=== PATIENT | female | born 1950 | race Caucasian/White ===

== ENCOUNTER 2016-07-25 11:10 | Emergency (ER) | payer OTHER ==
[~2016-07-25] VITALS: Ht 167.6 cm; Wt 64.0 kg
[2016-07-25 11:17] VITALS: Ht 167.6 cm; Wt 64.0 kg
[2016-07-25] MEDS ORDERED: DTRSR/2 PO (11:41)
[2016-07-25] MEDS ORDERED: SODIUM CHLORIDE 0.9% 1000ML 1,000 ML IV STA (11:49)
--- NOTE | 2016-07-25 12:13 | EMERGENCY ROOM VISIT NOTE ---
History Report prepared by Nehal: Bud Lund Under the Supervision of: Dr. Malvin Austin M.D. First contact with patient: 11:42 Chief Complaint: BACK PAIN Stated Complaint: LOWER BACK PAIN, TENDER,BOWEL CHANGE History of Present Illness The patient is a 65 year old female who presents to the Emergency Room with complaints of worsening lower back pain that began 1 week ago. She rates her pain a 7/10 a severity. She states that she has been having bowel problems with softer smaller stools, that she believes to be related. She denies any recent falls or injury. She denies any urinary symptoms, loss of bowel control, or abdominal pain. She has not been doing anything out of the ordinary. She did not take any pain medications. Source of History: patient Onset: 1 week ago Position: back (lower) Symptom Intensity: 7/10 Quality: ache Timing: worsening Associated Symptoms: No abdominal pain, No urinary symptoms Note: She denies any loss of bowel control. Review of Systems See HPI for pertinent positives & negatives. A total of 10 systems reviewed and were otherwise negative. Past Medical & Surgical Medical Problems: (1) Bleeding ulcer (2) Lyme disease Family History Cancer Diabetes mellitus Heart disease Social History Smoking Status: Current Every Day Smoker Alcohol Use: none Drug Use: none Marital Status: in relationship Housing Status: lives with significant other Occupation Status: retired Current/Historical Medications Scheduled Tolterodine Tartrate (Detrol [place]), 1 CAP PO HS Allergies Coded Allergies: No Known Allergies (Unverified , 07/25/16) Physical Exam Vital Signs Date Time Temp Pulse Resp B/P Pulse Ox O2 Delivery O2 Flow Rate FiO2 07/25/16 13:32 36.5 82 18 117/71 96 07/25/16 12:30 73 07/25/16 11:17 36.5 97 18 124/72 96 Room Air Physical Exam GENERAL: Patient is a healthy-appearing well-nourished HEAD: Normocephalic atraumatic EYES: Ocular movements intact pupils equal and react to light OROPHARYNX mucous membranes are moist no exudates present no erythema or edema present NECK: Supple no nuchal rigidity CHEST: Good equal expansion LUNGS: Clear and equal to auscultation CARDIAC: Normal S1 and S2 ABDOMEN: Soft nontender no guarding BACK: No CVA tenderness. Able to walk on heels and toes. No signs of saddle anesthesia. EXTREMITIES: No pain upon palpation normal muscle strength in all groups no clubbing cyanosis or edema NEURO: Patient is following commands is answering questions appropriately. Alert and oriented x3 Cranial Nerves 2-12 grossly intact. No loss of bowel or bladder control. Medical Decision & Procedures ER Provider Diagnostic Interpretation: Radiology results as stated below per my review and radiologist interpretation: CT LUMBAR SPINE WITHOUT CT DOSE: 265.99 mGy.cm CLINICAL HISTORY: Severe left-sided back pain TECHNIQUE: Helical images were acquired in transverse plane. Reformatted sagittal and coronal images were reviewed. CONTRAST: No contrast was administered COMPARISON STUDY: None. FINDINGS: L1-2 level: There is no evidence of significant disc bulge or focal herniation. There is no evidence of spinal or foraminal stenosis. L2-3 level: There is a mild circumferential disc bulge. There is minor spinal stenosis. There is no significant foraminal narrowing L3-4 level: There is a minimal retrolisthesis of L3 on L4. There is a circumferential disc bulge present. There is mild to moderate spinal stenosis. There is no significant foraminal narrowing L4-5 level: There is a grade 1 spinal listhesis of L4 and L5. There is a circumferential disc bulge present. There is mild to moderate spinal stenosis. There is no stomach and foraminal narrowing L5-S1 level: There is no evidence of significant disc bulge or focal herniation. There is no evidence of spinal or foraminal stenosis. No fractures or traumatic subluxations are visualized. No destructive lesions are evident. There is facet joint arthropathy most severe at the L4-5 on the left IMPRESSION: 1. No acute fractures or traumatic subluxations 2. Multilevel degenerative changes with multilevel disc bulges and multilevel spinal stenosis which is mild to moderate the L3-4 and L4-5 levels. Electronically signed by: Juan Vasquez M.D. 07/25/2016 12:30 PM Dictated Date/Time: 07/25/2016 12:[address] SCAN OF THE ABDOMEN AND PELVIS WITHOUT CONTRAST CLINICAL HISTORY: Diffuse abdominal pain COMPARISON STUDY: No previous studies for comparison. TECHNIQUE: CT scan of the abdomen and pelvis was performed from the lung bases to the proximal femurs. Images are reviewed in the axial, sagittal, and coronal planes. IV contrast was not administered for this examination. CT DOSE: FINDINGS: Lower chest: There is pulmonary emphysema. There are mild dependent atelectatic changes. Liver: The unenhanced liver is normal in size, contour, and attenuation. There is no intrahepatic biliary ductal dilatation. Gallbladder: Unremarkable. Spleen: Normal in size and attenuation. Pancreas: Unremarkable. Adrenal glands: Unremarkable. Kidneys: No renal, ureteral, or bladder calculi are visualized. Bowel: No no transition zones indicate bowel obstruction. The appendix appears normal. There is no acute diverticulitis. There is mild fecal retention. Peritoneum: There is no intraperitoneal free air or abdominal ascites. Vasculature: The abdominal aorta is normal in course and caliber. Adenopathy: None. Pelvic viscera: The bladder, and pelvic viscera are unremarkable. Skeletal structures: No destructive osseous lesions are seen. IMPRESSION: 1. No evidence of bowel obstruction. No evidence of free air 2. Normal appendix. No evidence of acute diverticulitis 3. No renal, ureteral, or bladder calculi identified. Electronically signed by: Juan Vasquez M.D. 07/25/2016 12:27 PM Dictated Date/Time: 07/25/2016 12:24 PM Laboratory Results 07/25/16 12:10 Red Blood Count 5.18, Mean Corpuscular Volume 93.4, Mean Corpuscular Hemoglobin 31.1, Mean Corpuscular Hemoglobin Concent 33.3, Mean Platelet Volume 9.3, Neutrophils (%) (Auto) 69.0, Lymphocytes (%) (Auto) 24.7, Monocytes (%) (Auto) 5.3, Eosinophils (%) (Auto) 0.4, Basophils (%) (Auto) 0.5, Neutrophils # (Auto) 5.22, Lymphocytes # (Auto) 1.87, Monocytes # (Auto) 0.40, Eosinophils # (Auto) 0.03, Basophils # (Auto) 0.04 07/25/16 12:10 Test 07/25/16 11:20 07/25/16 12:10 Urine Color YELLOW Urine Appearance CLEAR (CLEAR) Urine pH 6.0 (4.5-7.5) Urine Specific [place] 1.005 (1.000-1.030) Urine Protein NEG (NEG) Urine Glucose (UA) NEG (NEG) Urine Ketones NEG (NEG) Urine Occult Blood 1+ (NEG) Urine Nitrite NEG (NEG) Urine Bilirubin NEG (NEG) Urine Urobilinogen NEG (NEG) Urine Leukocyte Esterase TRACE (NEG) Urine WBC (Auto) 1-5 /hpf (0-5) Urine RBC (Auto) 5-10 /hpf (0-4) Urine Hyaline Casts (Auto) 0 /lpf (0-5) Urine Epithelial Cells (Auto) 10-20 /lpf (0-5) Urine Bacteria (Auto) NEG (NEG) White Blood Count 7.57 K/uL (4.8-10.8) Red Blood Count 5.18 M/uL (4.2-5.4) Hemoglobin 16.1 g/dL (12.0-16.0) Hematocrit 48.4 % (37-47) Mean Corpuscular Volume 93.4 fL (80-100) Mean Corpuscular Hemoglobin 31.1 pg (25-34) Mean Corpuscular Hemoglobin Concent 33.3 g/dl (32-36) Platelet Count 256 K/uL (130-400) Mean Platelet Volume 9.3 fL (7.4-10.4) Neutrophils (%) (Auto) 69.0 % Lymphocytes (%) (Auto) 24.7 % Monocytes (%) (Auto) 5.3 % Eosinophils (%) (Auto) 0.4 % Basophils (%) (Auto) 0.5 % Neutrophils # (Auto) 5.22 K/uL (1.4-6.5) Lymphocytes # (Auto) 1.87 K/uL (1.2-3.4) Monocytes # (Auto) 0.40 K/uL (0.11-0.59) Eosinophils # (Auto) 0.03 K/uL (0-0.5) Basophils # (Auto) 0.04 K/uL (0-0.2) RDW Standard Deviation 46.5 fL (36.4-46.3) RDW Coefficient of Variation 13.5 % (11.5-14.5) Immature Granulocyte % (Auto) 0.1 % Immature Granulocyte # (Auto) 0.01 K/uL (0.00-0.02) Anion Gap 7.0 mmol/L (3-11) Est Creatinine Clear Calc Drug Dose 59.6 ml/min Estimated GFR () 79.9 Estimated GFR (Non- 68.9 BUN/Creatinine Ratio 25.7 (10-20) Calcium Level 9.5 mg/dl (8.5-10.1) Total Bilirubin 0.5 mg/dl (0.2-1) Direct Bilirubin 0.1 mg/dl (0-0.2) Aspartate Amino Transf (AST/SGOT) 15 U/L (15-37) Alanine Aminotransferase (ALT/SGPT) 25 U/L (12-78) Alkaline Phosphatase 88 U/L (45-117) Total Protein 7.4 gm/dl (6.4-8.2) Albumin 4.0 gm/dl (3.4-5.0) Lipase 107 U/L (73-393) Labs reviewed by ED physician. Medications Administered Medications (Trade) Dose Ordered Sig/Bren Route Start Time Stop Time Status Last Admin Dose Admin Sodium Chloride (Nss 1000ml) 1,000 ml @ 999 mls/hr Q1H1M STAT IV 07/25/16 11:49 07/25/16 12:49 DC 07/25/16 12:23 999 MLS/HR ED Course 1142: Past medical records reviewed. The patient was evaluated in room C9. A complete history and physical examination was performed. 1149: Ordered Sodium Chloride 1000 ml @ 999 mls/hr IV 1300: Upon reexamination the patient is resting. I discussed results and treatment plan with the patient. She verbalizes agreement and understanding. The patient is ready for discharge. Medical Decision Differential diagnosis: Etiologies such as fracture, dislocation, neurovascular compromise, compartment syndrome, soft tissue injury, as well as others were entertained. This is a 65-year-old female whose complaining of tenderness to the left lower back along with change in bowel habits. The patient reports she's been having loose stool however this has not lost bowel control. The patient believes that the 2 events are related. I will note that the patient has no evidence of saddle anesthesia is able to walk on her tiptoes and her heels. The patient is here to make sure that there is nothing wrong. Based on the patient's complaint an IV was established, the patient has a normal CBC normal renal profile normal liver profile normal lipase. In addition the patient was given normal saline bolus. I do believe based on the patient's CAT scan that she is able to go home. The patient refused pain medication however I discussed follow-up with gastroenterology. The patient does see [facility]. She is also received injections into her back from [facility] so I also recommended follow-up with [facility]. Patient was in agreement with the treatment plan. Impression Primary Impression: Back pain Scribe Attestation The scribe's documentation has been prepared under my direction and personally reviewed by me in its entirety. I confirm that the note above accurately reflects all work, treatment, procedures, and medical decision making performed by me. Departure Information Dispostion Home / Self-Care Referrals Micaela Hand M.D. (PCP) Forms HOME CARE DOCUMENTATION FORM, IMPORTANT VISIT INFORMATION, School Instructions, Work Instructions Patient Instructions Back Pain - [facility], ED Back Care Tips, ED Exercises Lumbar Muscles, Low Back Pain Self Care, My [facility] Additional Instructions Follow up with [facility] for change in Bowel habits Follow up with [facility] for continued back pain Take 600 mg Ibuprofen every 6 hours You have been examined and treated today on an emergency basis only. This is not a substitute for, or an effort to provide, complete comprehensive medical care. It is impossible to recognize and treat all injuries or illnesses in a single emergency department visit. It is therefore important that you follow up closely with Dr hand. Call as soon as possible for an appointment. Thank you for your time and consideration. I look forward to speaking with you again soon. Please don't hesitate to call us if you have any questions. Problem Qualifiers Primary Impression: Back pain Back pain location: low back pain Chronicity: acute Back pain laterality: left Sciatica presence: without sciatica Qualified Codes: M54.5 - Low back pain
[2016-07-25 12:21] LABS: URINE APPEARANCE CLEAR (CLEAR); URINE BILIRUBIN NEG (NEG); URINE COLOR YELLOW; URINE NITRITE NEG (NEG); URINE SPECIFIC GRAVITY 1.005 (1.000-1.030); UROBILINOGEN NEG (NEG)
[2016-07-25 12:23] LABS: BASO % 0.5 %; BASO ABS # 0.04 K/uL (0-0.2); COMPLETE YES; EOS % 0.4 %; HEMATOCRIT 48.4 % (37-47); IG% 0.1 %; LYMPH % 24.7 %; LYMPH ABS # 1.87 K/uL (1.2-3.4); MEAN CELL VOLUME 93.4 fL (80-100); MEAN CORPUSCULAR HEMOGLOBIN 31.1 pg (25-34); MEAN CORPUSCULAR HGB CONC 33.3 g/dl (32-36); MEAN PLATELET VOLUME 9.3 fL (7.4-10.4); MONO % 5.3 %; PLATELET COUNT 256 K/uL (130-400); RED BLOOD COUNT 5.18 M/uL (4.2-5.4); WHITE BLOOD COUNT 7.57 K/uL (4.8-10.8)
[2016-07-25 12:23] LABS: MANUAL MICROSCOPIC REQUIRED? NO; REVIEW REQ? NO
--- NOTE | 2016-07-25 12:28 | DIAGNOSTIC IMAGING REPORT ---
CT SCAN OF THE ABDOMEN AND PELVIS WITHOUT CONTRAST CLINICAL HISTORY: Diffuse abdominal pain COMPARISON STUDY: No previous studies for comparison. TECHNIQUE: CT scan of the abdomen and pelvis was performed from the lung bases to the proximal femurs. Images are reviewed in the axial, sagittal, and coronal planes. IV contrast was not administered for this examination. CT DOSE: FINDINGS: Lower chest: There is pulmonary emphysema. There are mild dependent atelectatic changes. Liver: The unenhanced liver is normal in size, contour, and attenuation. There is no intrahepatic biliary ductal dilatation. Gallbladder: Unremarkable. Spleen: Normal in size and attenuation. Pancreas: Unremarkable. Adrenal glands: Unremarkable. Kidneys: No renal, ureteral, or bladder calculi are visualized. Bowel: No no transition zones indicate bowel obstruction. The appendix appears normal. There is no acute diverticulitis. There is mild fecal retention. Peritoneum: There is no intraperitoneal free air or abdominal ascites. Vasculature: The abdominal aorta is normal in course and caliber. Adenopathy: None. Pelvic viscera: The bladder, and pelvic viscera are unremarkable. Skeletal structures: No destructive osseous lesions are seen. IMPRESSION: 1. No evidence of bowel obstruction. No evidence of free air 2. Normal appendix. No evidence of acute diverticulitis 3. No renal, ureteral, or bladder calculi identified. Electronically signed by: Juan Vasquez M.D. 07/25/2016 12:27 PM Dictated Date/Time: 07/25/2016 12:24 PM
--- NOTE | 2016-07-25 12:32 | DIAGNOSTIC IMAGING REPORT ---
CT LUMBAR SPINE WITHOUT CT DOSE: 265.99 mGy.cm CLINICAL HISTORY: Severe left-sided back pain TECHNIQUE: Helical images were acquired in transverse plane. Reformatted sagittal and coronal images were reviewed. CONTRAST: No contrast was administered COMPARISON STUDY: None. FINDINGS: L1-2 level: There is no evidence of significant disc bulge or focal herniation. There is no evidence of spinal or foraminal stenosis. L2-3 level: There is a mild circumferential disc bulge. There is minor spinal stenosis. There is no significant foraminal narrowing L3-4 level: There is a minimal retrolisthesis of L3 on L4. There is a circumferential disc bulge present. There is mild to moderate spinal stenosis. There is no significant foraminal narrowing L4-5 level: There is a grade 1 spinal listhesis of L4 and L5. There is a circumferential disc bulge present. There is mild to moderate spinal stenosis. There is no stomach and foraminal narrowing L5-S1 level: There is no evidence of significant disc bulge or focal herniation. There is no evidence of spinal or foraminal stenosis. No fractures or traumatic subluxations are visualized. No destructive lesions are evident. There is facet joint arthropathy most severe at the L4-5 on the left IMPRESSION: 1. No acute fractures or traumatic subluxations 2. Multilevel degenerative changes with multilevel disc bulges and multilevel spinal stenosis which is mild to moderate the L3-4 and L4-5 levels. Electronically signed by: Juan Vasquez M.D. 07/25/2016 12:30 PM Dictated Date/Time: 07/25/2016 12:28 PM
[2016-07-25 12:41] LABS: BUN/CREATININE RATIO 25.7 (10-20); CALCIUM 9.5 mg/dl (8.5-10.1); CREATININE 0.88 mg/dl (0.60-1.20); POTASSIUM 4.1 mmol/L (3.5-5.1)
[2016-07-25 13:32] VITALS: BP 117/71; PULSE 82; TEMP 36.5; O2SAT 96
== END 2016-07-25 13:20 | disposition home or self-care (01) ==
LOC: C.EDB 11:11 → C.EDC 13:20
DX: M54.5 Low back pain (principal); M54.9 Dorsalgia, unspecified; Z83.3 Family history of diabetes mellitus; Z82.49 Family history of ischemic heart disease and other diseases of the circulatory system; F17.200 Nicotine dependence, unspecified, uncomplicated

== ENCOUNTER 2019-02-01 06:04 | Inpatient (IN) ==
--- NOTE | 2019-01-25 13:10 | Anesthesiology Consultation ---
Date of Service January 25, 2019 Assessment & Plan (1) Encounter for pre-operative examination: Chart Review Chart Review: Acceptable Risk for Surgery Consults Requested none History Surgery Operation Date: 02/01/19 13:55 Proposed Procedures p Right Shoulder Arthroscopy with Rotator Cuff Repair, Possible Biceps Debridement, Subacromial Decompression, Distal Clavicle Excision - Ken Boo MD Height/Weight Height: 5 ft 6 in Weight: 54.885 kg Allergies Allergy/AdvReac Type Severity Reaction Status Date / Time ibuprofen [From Motrin] AdvReac Mild CAUSED GI Verified 01/18/19 10:58 BLEED PAIN MED Allergy Mild HALLUCINATION Uncoded 01/18/19 10:56 AND NAUSEA - PT DOES NOT WORK Medications Home Medications Medication Instructions Recorded Confirmed Last Taken tolterodine 4 mg PO HS 01/18/19 01/18/19 Unknown Past Medical History Medical History History of GI bleed CAUSED BY MOTRIN Hx of cardiac murmur AGE 5 AND NO PROBLEMS Past Surgical History Surgical History History of arthroplasty of left shoulder ROTATOR CUFF REPAIR Hx of LASIK Hx of colonoscopy Hx of esophagogastroduodenoscopy Hx of foot surgery LEFT FOOT NEUROMA REMOVED Hx of laparoscopy FOR ECTOPIC Hx of tonsillectomy Social History Smoking Status: Current every day smoker tobacco type: cigarettes Smoking cigarettes per day: 1PPD Do You Dip or Chew Tobacco: No Hx Alcohol Use: No Hx Substance Use: No substance use type: does not use Testing Laboratory Results [facility] labs (01/13/19): WBC 11.9 Hgb 16.2 Plts 357
--- NOTE | 2019-01-31 22:47 | History and Physical Report ---
DATE OF ADMISSION: 02/01/2019 CHIEF COMPLAINT: Right shoulder injury. HISTORY OF PRESENT ILLNESS: This is a 68-year-old female patient of Dr. Boo'kiana complaining of a right shoulder injury approximately 3 months ago. She was throwing a garbage bag into her garbage can and she sustained an injury. She failed conservative treatment and an MRI confirmed a rotator cuff tear, impingement, AC arthritis, and biceps tendinopathy. The patient wished to proceed with a right shoulder arthroscopic rotator cuff repair, subacromial decompression, distal clavicle excision, and possible biceps debridement. PAST MEDICAL HISTORY: Heart murmur, peripheral neuropathy, osteoarthritis, spine problems. SOCIAL HISTORY: A pack per year smoker x40 years. Nondrinker. PAST SURGICAL HISTORY: Tubal ligation, ectopic , Lasik eye surgery, tonsillectomy, left foot neuroma, and left rotator cuff. FAMILY HISTORY: Noncontributory. REVIEW OF SYSTEMS: Chronic right shoulder pain and weakness. Otherwise, denies any shortness of breath, chest pain, nausea, vomiting, or any other joint complaints. MEDICATIONS: Include, 1. Diclofenac 1% topical gel 2 times daily to affected area. 2. Aleve 220 mg as needed. 3. Tolterodine 4 mg capsules 1 tablet daily. 4. Prednisone 10 mg as directed. ALLERGIES: NARCOTICS WHICH CAUSE NAUSEA, VOMITING, AND HALLUCINATIONS. PHYSICAL EXAMINATION: GENERAL: Well-developed, well-nourished, 68-year-old female in no acute distress. She is alert and oriented x3 and pleasant. HEENT: Normocephalic, atraumatic. Extraocular motions are intact. Pupils are equal and reactive to light. HEART: Regular rate and rhythm, no murmurs. LUNGS: Clear with decreased sounds throughout. ABDOMEN: Soft and nontender. Bowel sounds present. EXTREMITIES: Right shoulder reveals active range of motion to 140, passively to 180 with pain and crepitation. External rotation is 3/5 strength. Internal rotation is 4/5 strength. NEUROLOGIC: Neurovascularly, she is intact in her right upper extremity. DIAGNOSES: Right shoulder rotator cuff tear, impingement, acromioclavicular arthritis, and biceps tendinopathy. She also has a history of heart murmur, peripheral neuropathy, osteoarthritis, spine problems. PLAN: The patient was advised of her diagnoses. Indications, risks, benefits, postop course have all been reviewed. The patient wished to proceed with a right shoulder arthroscopic rotator cuff repair, subacromial decompression, distal clavicle excision, and possible biceps debridement. Necessary consent forms, preoperative testing, and clearances will be obtained.
[~2019-02-01 06:04] MED LIST: CEFAZOLIN 1000MG 1,000 MG/7.5 ML SYR IV SCH; LR 15ML/HR IV SCH
[2019-02-01] MEDS ORDERED: ROPIVACAINE 0.5% 5 MG/ML 30 ML VIAL ONE (06:36)
[2019-02-01] MEDS ORDERED: EpINEphrine HCL INJ 1 MG/ML 1ML SYRINGE ONE (07:15)
--- NOTE | 2019-02-01 07:21 | History & Physical Bridge Note ---
Date of Service February 01, 2019 History & Physical Bridge Note I have examined the patient, reviewed the History & Physical and in the interval since the performance of the History & Physical I have noted the following changes of clinical significance: no changes noted
[2019-02-01] MEDS ORDERED: LIDOCAINE HCL 2% 2 ML VIAL/AMP(20MG/ML) INFIL ONE (07:55)
[2019-02-01] MEDS ORDERED: PROPOFOL IV EMULSION 10 MG/ML 20 ML VIAL IV ONE ×2 (07:55→11:15)
[2019-02-01] MEDS ORDERED: DEXAMETHASONE SOD INJ 4 MG/ML VIAL ONE (07:55)
[2019-02-01] MEDS ORDERED: ROCURONIUM BROMIDE 10 MG/ML 5 ML VIAL ONE (07:56)
[2019-02-01] MEDS ORDERED: fentaNYL citrate 100 MCG/2 ML VIAL ONE (08:04)
[2019-02-01] MEDS ORDERED: MIDAZOLAM HCL 1 MG/ML 2ML VIAL ONE (08:05)
[2019-02-01] MEDS ORDERED: HYDROmorphone INJ 1 MG/ML SYRINGE IV PRN (09:37)
[2019-02-01] MEDS ORDERED: ONDANSETRON INJ 2 MG/ML 2 ML VIAL IV PRN ×2 (09:37→13:30)
[2019-02-01] MEDS ORDERED: ATROPINE SULFATE 0.1 MG/ML 10ML SYR IV PRN (09:37)
[2019-02-01] MEDS ORDERED: PROMETHAZINE HCL 6.25 MG in SODIUM CHLORIDE 0.9% 50 ML IV PRN (09:37)
[2019-02-01] MEDS ORDERED: ePHEDrine sulfate 50 MG/ML AMP ONE ×2 (10:30→11:25)
[2019-02-01] MEDS ORDERED: LARYING-O-JET KIT (LTA) ONE (10:50)
[2019-02-01] MEDS ORDERED: PHENYLEPHRINE 100MCG/ML 5ML SYR ONE (11:06)
[2019-02-01] MEDS ORDERED: GLYCOPYRROLATE 0.2 MG/ML VIAL ONE (11:33)
[2019-02-01] MEDS ORDERED: NEOSTIGMINE METHYLSULFATE 5 MG/5 ML SYR ONE (11:34)
--- NOTE | 2019-02-01 11:58 | Post Operative Brief Note ---
Immediate Post Op Note v1 Date of Surgery February 01, 2019 Pre & Post Diagnosis Operation Date: 02/01/19 09:20 Pre-Op Diagnosis: Right shoulder rotator cuff tear, impingement, acromioclavicular arthritis, and biceps tendinopathy. Post-Op Diagnosis: Right shoulder rotator cuff tear, impingement, acromioclavicular arthritis, and biceps rupture I identified the patient and participated in the time-out.: Yes Procedure Operation Date: 02/01/19 09:20 Actual Procedures p Right Shoulder Arthroscopy with Rotator Cuff Repair, Subacromial Decompression, Distal Clavicle Excision(Right) - Ken Boo MD Surgeon Ken Boo MD Photographic Process Attendant Jordon NINA Estimated Blood Loss 15 Findings Consistent with Post-Op Diagnosis Anesthesia Type General Regional Complications none Disposition Accompanied Patient To Recovery: No Disposition: Recovery Room Overlapping Procedure I was present for: the critical portions of procedure. Back up surgeon: was not required during procedure.
--- NOTE | 2019-02-01 12:49 | Anesthesiology Progress Note ---
Date of Service February 01, 2019 Anesthesia Post Procedure Vital Signs Vital Signs: Temp Pulse Pulse Resp BP Pulse Ox 02/01/19 12:40 36.6 C 71 18 105/57 L 92 02/01/19 12:30 36.7 C 75 18 100/55 L 92 02/01/19 12:20 36.7 C 75 18 106/59 L 92 02/01/19 12:10 36.7 C 88 18 117/66 96 02/01/19 11:59 36.7 C 99 H 22 120/71 92 02/01/19 07:26 36.8 C 81 20 123/83 98 Pain Intensity Right Shoulder: Pain Intensity: 9 Transfer of Care Handoff Completed per policy Notes Mental Status: alert / awake / arousable Patient Amnestic to Procedure: Yes Nausea / Vomiting: adequately controlled Pain: adequately controlled Airway Patency, RR, SpO2: stable & adequate BP & HR: stable & adequate Hydration State: stable & adequate Anesthetic Complications: no major complications apparent
[2019-02-01] MEDS ORDERED: NALOXONE HCL 0.4 MG/1 ML VIAL/CARP IV PRN (13:30)
[2019-02-01] MEDS ORDERED: MAGNESIUM HYDROXIDE SUSP 30 ML UDC PO PRN (13:30)
[2019-02-01] MEDS ORDERED: BISACODYL 10 MG SUPP PR PRN (13:30)
[2019-02-01] MEDS: SODIUM CHLORIDE 0.9% 1000ML 1,000 ML IV SCH ×2 (13:52→23:25)
[2019-02-01] MEDS: ACETAMINOPHEN 500 MG TAB PO SCH ×2 (13:54→21:33)
--- NOTE | 2019-02-01 17:35 | Operative Report ---
Post Operative Report Pre & Post Diagnosis Operation Date: 02/01/19 09:20 Pre-Op Diagnosis: Right shoulder rotator cuff tear, impingement, acromioclavicular arthritis, and biceps tendinopathy, possible biceps rupture. Post-Op Diagnosis: Right shoulder rotator cuff tear, impingement, acromioclavicular arthritis, and biceps rupture with retraction I identified the patient and participated in the time-out.: Yes Procedure Operation Date: 02/01/19 09:20 Actual Procedures p Right Shoulder Arthroscopy with Rotator Cuff Repair, Subacromial Decompression, Distal Clavicle Excision(Right) - Ken Boo MD Surgeon Ken Boo MD Environmental Engineering Aide Jordon NINA Estimated Blood Loss 15 Findings Consistent with Post-Op Diagnosis Specimens None Drains None Anesthesia Type General Regional Disposition Accompanied Patient To Recovery: No Disposition: Recovery Room Indications 68-year-old female with right shoulder pain related to chronic rotator cuff tear right shoulder. Patient has x-rays demonstrating a type II acromion with an anterior inferior acromial spur hypertrophic AC joint arthritis and MRI demonstrates full-thickness anterior superior rotator cuff tear and biceps tendinopathy probable biceps rupture. Description of Procedure The patient was to the operating room anesthetized under regional block and general anesthesia. The patient was positioned on the operating table in the 70 beachchair position. All of the other extremities were well-padded. The right upper extremity was prepped and draped in the usual sterile fashion. Examination demonstrated good passive range of motion no instability subacromial crepitation prominent AC joint. Arthroscopy of the shoulder was performed via anterior and posterior arthroscopy portals. Posterior portal was placed in the soft spot and the anterior portal was placed in the rotator interval. Subsequent portals included lateral subacromial and superior lateral incision for suture anchor placement. The following findings were noted ruptured biceps tendon with retraction some synovitis of the joint intact articular surfaces upper subscapularis tear and complete tear supraspinatus tendon with intact infraspinatus tendon. Subacromial bursitis fraying of the CA ligament type II acromion with impingement inferior AC joint spurs causing impingement advanced osteoarthritis end of clavicle with irregular surface and grade 4 change. Attention was first taken to debriding the undersurface of the rotator cuff repair in the footprint of his upper subscapularis and supraspinatus for repair. The bone was debrided but not decorticated getting up bleeding bony surface for insertion of the rotator cuff. The bursa and periosteum on the undersurface of the acromion was ablated with the radiofrequency ablator and the CA ligament was released off the anterior acromion. The CA ligament was debrided back. A 5.5 bur was used to plane down the acromion to type I flat shape. A radio frequency ablator was used to ablate the undersurface of 1 cm of the distal clavicle ablating the inferior capsule. This exposed the spurs on the undersurface of the clavicle. A 5.5 bur was used to resect 1 cm distal clavicle using the shane through both the lateral and anterior portal. The superior and posterior capsule was preserved for stability. Triple loaded anchors were placed in the upper lesser tuberosity footprint in the greater tuberosity footprint of the supraspinatus and sutures were passed with a arthroscopic suture passer and tied down with A Brendan sliding locking knot with 3 reversed half hitches and alternating posts. Complete repair was performed without tension with the arm to side. There is no impingement The portal sites were closed with interrupted nylon sutures. Sterile dressings were applied and a sling immobilizer. The patient tolerated the procedure well. My physician medical laboratory assistant Jordon Harmon, assisted in arm positioning, instrument management, suture management when indicated, incision closure, sling application, and will participate in the postoperative care of the patient. I attest to the content of the Intraoperative Record and any orders documented therein. Any exceptions are noted below.
[2019-02-01] MEDS: CEFAZOLIN 1000MG 1,000 MG/7.5 ML SYR IV SCH (18:26)
[2019-02-01] MEDS: TOLTERODINE TARTRATE LA 4 MG CAPCR PO SCH (20:07)
[2019-02-01] MEDS: SENNA 8.6 MG TAB PO SCH (20:07)
[2019-02-01] MEDS: DOCUSATE SODIUM 100 MG CAP PO SCH (20:07)
[2019-02-02] MEDS: CEFAZOLIN 1000MG 1,000 MG/7.5 ML SYR IV SCH (02:02)
[2019-02-02] MEDS: HYDROCODONE/ACETAMOPHEN 5/325MG TAB PO PRN ×4 (02:02→20:51)
[2019-02-02] MEDS: ACETAMINOPHEN 500 MG TAB PO SCH (02:56)
[2019-02-02] MEDS: HYDROmorphone INJ 0.5 MG/0.5 ML SYR IV PRN ×3 (03:29→16:26)
[2019-02-02 06:52] LABS: Hematocrit (blood only) 38.8 % (37-47); Hemoglobin 12.8 g/dL (12.0-16.0); Mean Corpuscular Hemoglobin 31.8 pg (25-34); Mean Corpuscular Volume 96.3 fL (80-100); Mean Platelet Volume 9.2 fL (7.4-10.4); Platelet Count 213 K/uL (130-400); RDW Coefficient of Variation 14.7 % (11.5-14.5); RDW Standard Deviation 52.1 fL (36.4-46.3); Red Blood Count 4.03 M/uL (4.2-5.4); White Blood Count 9.79 K/uL (4.8-10.8)
[2019-02-02 07:20] LABS: BUN Creatinine Ratio 23.1 (10-20); Calcium 8.8 mg/dl (8.5-10.1); Creatinine Clr Calc Pharmacy 66.5 ml/min; Est GFR (African American) 101.4; Est GFR (Non-African American) 87.5; Potassium 3.7 mmol/L (3.5-5.1)
[2019-02-02] MEDS ORDERED: ACETAMINOPHEN 500 MG TAB PO PRN (07:58)
--- NOTE | 2019-02-02 08:12 | Anesthesiology Progress Note ---
Date of Service February 02, 2019 Anesthesia Post Procedure Vital Signs Vital Signs: Temp Pulse Pulse Resp BP Pulse Ox 02/02/19 07:25 36.7 C 74 18 107/63 92 02/02/19 03:59 36.5 C 66 17 113/69 92 02/01/19 23:09 36.8 C 68 18 93/55 L 94 02/01/19 20:03 36.7 C 67 18 103/60 93 02/01/19 16:15 36.5 C 69 17 95/57 L 92 02/01/19 15:54 95 02/01/19 15:15 36.6 C 70 17 99/64 L 97 02/01/19 14:00 69 16 92/58 L 98 02/01/19 13:48 65 16 91/59 L 100 02/01/19 13:15 36.6 C 63 17 99/61 L 97 02/01/19 13:00 36.6 C 71 18 104/62 94 02/01/19 12:50 36.6 C 69 18 106/59 L 94 02/01/19 12:40 36.6 C 71 18 105/57 L 92 02/01/19 12:30 36.7 C 75 18 100/55 L 92 02/01/19 12:20 36.7 C 75 18 106/59 L 92 02/01/19 12:10 36.7 C 88 18 117/66 96 02/01/19 11:59 36.7 C 99 H 22 120/71 92 Pain Intensity Right Shoulder: Pain Intensity: 3 Notes Mental Status: alert / awake / arousable and participated in evaluation Nausea / Vomiting: adequately controlled Pain: adequately controlled Airway Patency, RR, SpO2: stable & adequate BP & HR: stable & adequate Hydration State: stable & adequate Anesthetic Complications: no major complications apparent and Pt Satisfied with anesthetic care
[2019-02-02] MEDS: MULTIVITAMIN TAB PO SCH (08:47)
[2019-02-02] MEDS: ASPIRIN 81 MG ECTAB PO SCH (08:47)
[2019-02-02] MEDS: DOCUSATE SODIUM 100 MG CAP PO SCH ×2 (08:47→20:52)
--- NOTE | 2019-02-02 08:47 | Orthopedic Progress Note ---
Date of Service February 02, 2019 Assessment & Plan (1) Right rotator cuff tear: POD 1 s/p Right RTC Tear Repair. PT/OT Pain management DVT prophylaxis - SCD's, ASA DC planning - [facility]. Needs 3 day stay prior to dc. Subjective Pt sitting up eating breakfast. Having some mild shoulder pain this AM but no other complaints. Planning for [facility] this weekend. Will need a 3 night stay. Physical Exam Physical Exam: Dressings C/D/I. CMS intact. Cap refill < 2 seconds. Results & Data Vital Signs (Past 12 Hours) Vital Signs Temp Pulse Resp BP Pulse Ox 02/02/19 07:25 36.7 C 74 18 107/63 92 02/02/19 03:59 36.5 C 66 17 113/69 92 02/01/19 23:09 36.8 C 68 18 93/55 L 94 Laboratory Results Laboratory Results WBC 9.79 K/uL (4.8-10.8) 02/02/19 06:05 RBC 4.03 M/uL (4.2-5.4) L 02/02/19 06:05 Hgb 12.8 g/dL (12.0-16.0) 02/02/19 06:05 Hct 38.8 % (37-47) 02/02/19 06:05 MCV 96.3 fL (80-100) 02/02/19 06:05 MCH 31.8 pg (25-34) 02/02/19 06:05 MCHC 33.0 g/dL (32-36) 02/02/19 06:05 RDW Std Deviation 52.1 fL (36.4-46.3) H 02/02/19 06:05 RDW Coeff of Steff 14.7 % (11.5-14.5) H 02/02/19 06:05 Plt Count 213 K/uL (130-400) 02/02/19 06:05 MPV 9.2 fL (7.4-10.4) 02/02/19 06:05 Sodium 141 mmol/L (136-145) 02/02/19 06:05 Potassium 3.7 mmol/L (3.5-5.1) 02/02/19 06:05 Chloride 109 mmol/L (98-107) H 02/02/19 06:05 Carbon Dioxide 24 mmol/L (21-32) 02/02/19 06:05 Anion Gap 8.0 (3-11) 02/02/19 06:05 BUN 16 mg/dl (7-18) 02/02/19 06:05 Creatinine 0.71 mg/dl (0.6-1.2) 02/02/19 06:05 Est Cr Clr Drug Dosing 66.5 ml/min 02/02/19 06:05 Est GFR ( Amer) 101.4 02/02/19 06:05 Est GFR (Non-Af Amer) 87.5 02/02/19 06:05 BUN/Creatinine Ratio 23.1 (10-20) H 02/02/19 06:05 Glucose 90 mg/dl (70-99) 02/02/19 06:05 Calcium 8.8 mg/dl (8.5-10.1) 02/02/19 06:05
[2019-02-02] MEDS: TOLTERODINE TARTRATE LA 4 MG CAPCR PO SCH (20:52)
[2019-02-02] MEDS: SENNA 8.6 MG TAB PO SCH (20:52)
[2019-02-03] MEDS: HYDROCODONE/ACETAMOPHEN 5/325MG TAB PO PRN ×4 (02:49→20:40)
--- NOTE | 2019-02-03 08:18 | Orthopedic Progress Note ---
Date of Service February 03, 2019 Assessment & Plan (1) Right rotator cuff tear: POD 2 s/p Right Shoulder Arthroscopy with Rotator Cuff Repair, Subacromial Decompression, Distal Clavicle Excision PT/OT Pain management DVT prophylaxis - SCD's, ASA May have her right elbow and wrist out of the sling for ROM. DC planning - [facility] on Tuesday02.04.19. Needs 3 day stay prior to dc. Subjective Pt lying in bed resting. Having some mild shoulder pain this AM. States she has some aching in the top of her hand. No other complaints. Planning for [facility] this weekend. Will need a 3 night stay. Physical Exam Constitutional: WD/WN, vitals as above well developed and well nourished; no acute distress Lying comfortably in bed. Musculoskeletal: Shoulder: + ecchymosis (mild right shoulder) and + surgical incision (right shoulder dressing is C/D/I. Sling in place.); shoulder normal to inspection, no deformity and no skin erythema Results & Data Vital Signs (Past 12 Hours) Vital Signs Temp Pulse Pulse Resp BP BP Pulse Ox 02/03/19 07:57 36.9 C 78 16 138/75 94 02/02/19 23:15 36.9 C 77 17 119/62 90
[2019-02-03] MEDS: DOCUSATE SODIUM 100 MG CAP PO SCH ×2 (08:27→20:47)
[2019-02-03] MEDS: MULTIVITAMIN TAB PO SCH (08:27)
[2019-02-03] MEDS: ASPIRIN 81 MG ECTAB PO SCH (08:27)
[2019-02-03] MEDS: TOLTERODINE TARTRATE LA 4 MG CAPCR PO SCH (20:41)
[2019-02-03] MEDS: SENNA 8.6 MG TAB PO SCH (20:47)
--- NOTE | 2019-02-04 07:47 | Orthopedic Progress Note ---
Date of Service February 04, 2019 Assessment & Plan (1) Right rotator cuff tear: POD 3 s/p Right Shoulder Arthroscopy with Rotator Cuff Repair, Subacromial Decompression, Distal Clavicle Excision PT/OT Pain management DVT prophylaxis - SCD's, ASA May have her right elbow and wrist out of the sling for ROM. DC planning - [facility] today, 02.04.19. Needs 3 day stay prior to dc. Subjective Pt walking in hallway at the start of the visit. Pain controlled today. No other complaints. States her hand and elbow felt great after motion and out of sling yesterday. Physical Exam Constitutional: WD/WN, vitals as above well developed and well nourished; no acute distress Musculoskeletal: Shoulder: + ecchymosis (mild right shoulder) and + surgical incision (right shoulder dressing is C/D/I. Sling in place.); shoulder normal to inspection, no deformity and no skin erythema Results & Data Vital Signs (Past 12 Hours) Vital Signs Temp Pulse Pulse Resp BP BP Pulse Ox 02/04/19 06:56 36.7 C 71 18 129/74 94 02/04/19 06:46 36.7 C 69 18 128/80 99 02/03/19 22:51 36.9 C 71 18 124/73 92
[2019-02-04] MEDS: MULTIVITAMIN TAB PO SCH (08:29)
[2019-02-04] MEDS: ASPIRIN 81 MG ECTAB PO SCH (08:29)
[2019-02-04] MEDS: DOCUSATE SODIUM 100 MG CAP PO SCH (08:31)
--- NOTE | 2019-02-08 15:55 | Discharge Summary ---
DISCHARGE DIAGNOSES: Right shoulder rotator cuff tear, impingement syndrome, acromioclavicular arthritis, biceps rupture with retraction. SECONDARY DIAGNOSES: History of heart murmur, peripheral neuropathy, osteoarthritis. CONSULTATIONS: None. COMPLICATIONS: None. PROCEDURES: Right shoulder arthroscopy with rotator cuff repair, subacromial decompression, distal clavicle excision on 02/01/[address] Boo. BRIEF HISTORY: As dictated in the history and physical. HOSPITAL SUMMARY: The patient was admitted on the above-noted date and had the above-noted surgery performed, which showed he tolerated well. The patient was sitting up eating breakfast. On her first postoperative day, she has some mild shoulder pain that morning, but no other complaints. Planning for [facility] that which would require a 3-night stay for Medicare. Dressings were intact. INVENTORY SPECIALIST was intact. Cap refill was less than 2 seconds. Vital signs were stable. She was afebrile and hemoglobin was 12.8. She was started on PT and OT protocols. Continued on pain management and DVT prophylaxis. By her second postoperative day, she was resting in bed. She was having some mild shoulder pain that morning and stated that she had some aching in the top of her hand. She had no other complaints. Shoulder had some ecchymosis of the right shoulder. Incision was clean, dry and intact. Sling was in place. No erythema. Vital signs were stable. She was afebrile and continued on her protocols. The rest of her stay was essentially uneventful and by 02/04/2019 vital signs continued to remain stable. She was afebrile. The patient was ambulating in the hallways. Pain was controlled. Incision was remaining benign and it was felt she could be transferred to skilled facility on 02/04/2019. For further review, please see chart. LABORATORY AND X-RAY DATA: As per chart. DISCHARGE INSTRUCTIONS: The patient was discharged to a skilled facility on 02/04/2019. DIET: Regular. ACTIVITY: Follow rotator cuff repair instructions and special care instructions as noted. Follow up with Dr. Boo in 2 weeks. The patient to call for appointment if one has not been made for you. DISCHARGE MEDICATIONS: Aspirin 81 mg p.o. q.a.m., [place] 1-2 tabs p.o. q. 4 hours p.r.n. Resume home meds as listed.
== END 2019-02-04 11:13 | DRG 502 ==
LOC: ASU 06:04 → 3E 06:04

== ENCOUNTER 2020-02-15 09:00 | Inpatient (IN) ==
[2020-02-15] MEDS ORDERED: ONDANSETRON INJ 2 MG/ML 2 ML VIAL ONE ×2 (09:13→17:07)
[2020-02-15] MEDS ORDERED: LIDOCAINE 5% 1 PATCH TD STA (10:27)
[2020-02-15] MEDS ORDERED: ONDANSETRON INJ 2 MG/ML 2 ML VIAL IV STA (10:28)
[2020-02-15] MEDS ORDERED: ACETAMINOPHEN 1,000 MG/100 ML VIAL IV STA (10:28)
[2020-02-15] MEDS ORDERED: DEXAMETHASONE SOD INJ 4 MG/ML VIAL IV STA (10:29)
[2020-02-15] MEDS ORDERED: HYDROmorphone INJ 0.5 MG/0.5 ML SYR IV PRN (10:29)
[2020-02-15] MEDS ORDERED: valACYclovir HCL 500 MG TABLET PO ONE (10:30)
[2020-02-15] MEDS ORDERED: LEVALBUTEROL TARTRATE 15 GM HFA.AER.AD INH STA (10:31)
[2020-02-15] MEDS ORDERED: MAGNESIUM SULFATE / D5W 1 GM/100 ML BAG IV STA (10:32)
--- NOTE | 2020-02-15 10:58 | XRay Report ---
XR chest 1V portable HISTORY: SEPSIS COMPARISON: None. FINDINGS: No pneumothorax. Partially loculated moderate right pleural effusion. There are hazy airspa ce opacities within the right mid to lower lung zone. Patchy densities are also seen at the left lung base. The heart is borderline enlarged. A 7 cm lobular density within the periphery the right midlun g zone may represent a loculated pleural fluid. A pleural-based mass could also a similar appearance. IMPRESSION: 1. Partially loculated moderate right pleural effusion and right mid to lower lung zone airspace opac ities. 2. Patchy density at the basal left lower lobe. 3. A 7 cm lobular density within the periphery the right midlung zone may represent a loculated pleur al fluid. A pleural-based mass could also a similar appearance. This will be better appreciated on same day chest CT. ACT 112: Negative or not required by law. Electronically signed by: Georgi Magallon M.D. 02/15/2020 10:56 AM
[2020-02-15 11:07] LABS: Hematocrit (blood only) 41.9 % (37-47); Hemoglobin 14.1 g/dL (12.0-16.0); INR 1.1 (0.9-1.1); Mean Corpuscular Hemoglobin 31.3 pg (25-34); Mean Corpuscular Hgb Conc 33.7 g/dL (32-36); Mean Corpuscular Volume 93.1 fL (80-100); Mean Platelet Volume 9.6 fL (7.4-10.4); Partial Thromboplastin Ratio 1.4; Partial Thromboplastin Time 38.4 Seconds (21.0-31.0); Platelet Count 425 K/uL (130-400); Prothrombin Time 11.4 Seconds (9.0-12.0); RDW Coefficient of Variation 13.7 % (11.5-14.5); White Blood Count 37.66 K/uL (4.8-10.8)
[2020-02-15 11:09] LABS: Alanine Aminotransferase 54 U/L (12-78); Albumin Level 2.7 gm/dl (3.4-5.0); Aspartate Aminotransferase 20 U/L (15-37); BUN Creatinine Ratio 22.9 (10-20); Blood Urea Nitrogen 27 mg/dl (7-18); Calcium 9.3 mg/dl (8.5-10.1); Carbon Dioxide 26 mmol/L (21-32); Chloride 101 mmol/L (98-107); Creatinine Clr Calc Pharmacy 42.8 ml/min; Est GFR (African American) 55.6; Glucose 136 mg/dl (70-99); Magnesium 2.5 mg/dl (1.8-2.4); Potassium 4.1 mmol/L (3.5-5.1); Sodium 133 mmol/L (136-145)
[2020-02-15] MEDS ORDERED: PIPERACILLIN/TAZOBACTAM 4.5 GM/120 ML BAG IV ONE (11:09)
[2020-02-15] MEDS ORDERED: VANCOMYCIN HCL 1,250 MG in SODIUM CHLORIDE 0.9% 500 ML IV ONE (11:09)
[2020-02-15] MEDS ORDERED: VANCOMYCIN CONSULT ACTIVE PRN ×2 (11:09→20:45)
[2020-02-15] MEDS ORDERED: PIPERACILL/TAZOBAC CONSULT ACTIVE PRN ×2 (11:09→20:45)
[2020-02-15] MEDS ORDERED: levoFLOXacin/D5W 750 MG/150 ML BAG IV STA (11:09)
[2020-02-15 11:15] LABS: Basophils # (auto) 0.02 K/uL (0-0.2); Basophils % (auto) 0.1 %; Echinocytes 1+; Eosinophils # (auto) 0.01 K/uL (0-0.5); Immature Granulocytes # (auto) 0.17 K/uL (0.00-0.02); Immature Granulocytes % (auto) 0.5 %; Lymphocytes % (auto) 1.9 %; Monocytes # (auto) 2.05 K/uL (0.11-0.59); Monocytes % (auto) 5.4 %; Neutrophils # (auto) 34.71 K/uL (1.4-6.5); Neutrophils % (auto) 92.1 %
[2020-02-15 11:17] LABS: Albumin Globulin Ratio 0.6 (0.9-2); Alkaline Phosphatase 176 U/L (45-117); Bilirubin,Total 0.6 mg/dl (0.2-1); Ferritin 537.2 ng/ml (8-388); Globulin 4.4 gm/dl (2.5-4.0); Total Protein 7.1 gm/dl (6.4-8.2); Troponin I < 0.015 ng/ml (0-0.045)
[2020-02-15 11:29] LABS: iSTAT Creatinine 0.9 mg/dl (0.6-1.3); iSTAT Hemoglobin 14.3 g/dl (12.0-16.0); iSTAT Ionized Calcium 1.15 mmol/l (1.12-1.32); iSTAT Potassium 4.3 mmol/L (3.3-5.0)
[2020-02-15 12:10] LABS: Appearance Urine Clear (Clear); Bacteria Urine Automated Negative (Negative); Bilirubin Urine Negative (Negative); Blood Urine Trace (Negative); Color Urine Yellow; Epithelial Cell Urine Auto 20-30 /lpf (0-5); Glucose Urine UA Negative (Negative); Ketones Urine Negative (Negative); Leukocyte Esterase Urine Negative (Negative); Nitrite Urine Negative (Negative); Protein Urine 1+ (Negative); RBC Urine Automated 0-4 /hpf (0-4); Specific Gravity Urine 1.012 (1.000-1.030); Urobilinogen Urine Negative (Negative); pH Urine 5.5 (4.5-7.5)
--- NOTE | 2020-02-15 12:15 | History & Physical Report ---
Date of Service February 15, 2020 Assessment & Plan (1) Pneumonia due to COVID-19 virus: (2) Acute respiratory failure with hypoxia: (3) Sepsis: (4) Pleural effusion, right: -Admit to telemetry -Patient presenting from home with reports of worsening shortness of breath, right-sided chest pain, cough. Tested positive for COVID-19 on 02/12. -In the ED, hypoxic on room air at 88%. Currently saturating well on 3 days of oxygen via nasal cannula. -CXR shows multi lobar pneumonia with a partially loculated moderate right-sided pleural effusion -Meets sepsis criteria: WBC 37K, heart rate tachycardic 90-low 100s; BP stable, lactic acid 1.1 -Procalcitonin 4.36, CRP 52.4, ESR 64 -Received IV dexamethasone, IV Zosyn, IV Levaquin, IV vancomycin in the ED -CTA chest negative for PE -IV dexamethasone, IV remdesivir, convalescent plasma -Pulmonary consult *see Dr. Hinojosa' addendum below for additional A&P details (5) DVT prophylaxis: -SQ Lovenox History of Present Illness Chief Complaint: Shortness of breath, cough, right chest pain Primary Care Provider: Isela Hester DO Patient was interviewed via telephone. 69-year-old female without significant PMH who presents to the ED for evaluation of shortness of breath, cough, right-sided chest pain. Patient reports she developed a cough on 01/31. 2 days ago, she reports she developed worsening shortness of breath and right-sided chest pain. She was seen by PCP and given a azithromycin and Augmentin for suspected pneumonia. She was tested for COVID-19 which has come back positive. Patient reports that the shortness of breath has gotten significantly worse over the past 2 days. The right sided chest pain is now wrapping around into her back. She reports pain with deep breath and minimal movement. Cough has been productive for clear/white sputum. Last evening patient reports she developed nausea and vomiting. Denies hematemesis or coffee-ground emesis. She has had a poor appetite. Reports sense of taste and smell remain intact. No fevers. She denies lightheadedness, dizziness, diaphoresis, syncopal events. No urinary symptoms. In the ED, patient was hypoxic on room air at 88%. She is currently saturating well with 3 L of oxygen via nasal cannula. CXR shows partially loculated moderate right pleural eff usion and right mid to lower lung zone airspace opacities, patchy density at the basal left lower lobe, 7 cm lobular density within the periphery the right midlung zone may represent a loculated pleural fluid. A pleural-based mass could also a similar appearance. Labs show WBC 37K. One low BP reading 94/56, otherwise stable. HR tachycardic 90s to low 100s. Patient received IV Tylenol, IV dexamethasone, IV Dilaudid 0.5 mg, nebulizer treatment, IV Levaquin, Lidoderm patch, IV magnesium, IV Zofran, IV Zosyn, p.o. valacyclovir, IV vancomycin. Allergies Allergy/AdvReac Type Severity Reaction Status Date / Time ibuprofen [From Motrin] AdvReac Mild CAUSED GI Verified 02/15/20 09:48 BLEED PAIN MED Allergy Mild HALLUCINATION Uncoded 02/15/20 09:48 AND NAUSEA - PT DOES NOT WORK Home Medications Medication Instructions Recorded Confirmed Type tolterodine 4 mg PO HS 01/18/19 02/15/20 History amoxicillin-pot clavulanate 1 tab PO BID 02/15/20 02/15/20 History azithromycin 250 mg PO UD 02/15/20 02/15/20 History naproxen 500 mg PO BID 02/15/20 02/15/20 History Past Med/Surg History Medical History History of GI bleed CAUSED BY MOTRIN Hx of cardiac murmur AGE 5 AND NO PROBLEMS Overactive bladder Right rotator cuff tear s/p repair Surgical History History of arthroplasty of left shoulder ROTATOR CUFF REPAIR Hx of colonoscopy Hx of esophagogastroduodenoscopy Hx of foot surgery LEFT FOOT NEUROMA REMOVED Hx of laparoscopy FOR ECTOPIC Hx of LASIK Hx of tonsillectomy Family History Father Heart disease Social History Smoking Status: Current every day smoker Cigarettes Per Day: 1PPD; Second Hand Exposure: No; Hx Alcohol Use: No Hx Substance Use: No Preferred Language: Libyan Communication Ability: Effective Mechanical Service 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 Hinojosa' addendum for physical exam. Results & Data Results & Data ([facility]) Vital Signs (Past 12 Hours) Vital Signs Temp Pulse Resp BP Pulse Ox 02/15/20 12:01 24 96 02/15/20 12:00 92 H 19 106/58 L 96 02/15/20 11:58 93 H 22 94/56 L 96 02/15/20 11:50 96 H 24 96 02/15/20 11:48 98 H 24 94 02/15/20 11:31 103/73 02/15/20 11:20 93 H 23 97 02/15/20 11:10 103 H 21 95 02/15/20 11:00 96 H 24 93 02/15/20 10:50 93 H 20 98 02/15/20 10:40 92 H 19 98 02/15/20 10:35 93 02/15/20 10:31 92 H 21 99 02/15/20 10:30 93 H 20 121/67 98 02/15/20 10:20 91 H 18 99 02/15/20 10:16 93 02/15/20 10:10 95 H 22 90 02/15/20 10:01 94 H 23 88 L 02/15/20 10:00 91 H 22 102/54 L 89 L 02/15/20 09:50 94 H 22 88 L 02/15/20 09:40 95 H 23 92 02/15/20 09:33 97 H 21 91 02/15/20 09:32 100 H 25 H 117/70 88 L 02/15/20 09:30 19 02/15/20 09:20 97 H 24 89 L 02/15/20 09:11 99 H 24 96 02/15/20 09:08 102 H 24 122/69 96 02/15/20 09:00 36.5 C 115 H 22 122/69 93 Laboratory Results Short CBC 02/15/20 Range/Units 09:15 WBC 37.66 H* (4.8-10.8) K/uL Hgb 14.1 (12.0-16.0) g/dL Hct 41.9 (37-47) % Plt Count 425 H (130-400) K/uL BMP 02/15/20 09:15 Sodium 133 L Potassium 4.1 Chloride 101 Carbon Dioxide 26 BUN 27 H Creatinine 1.16 Glucose 136 H Calcium 9.3 Cardiac Enzymes 02/15/20 Range/Units 09:15 Troponin I < 0.015 (0-0.045) ng/ml Liver Function 02/15/20 Range/Units 09:15 Total Bilirubin 0.6 (0.2-1) mg/dl AST 20 (15-37) U/L ALT 54 (12-78) U/L Alkaline Phosphatase 176 H (45-117) U/L Albumin 2.7 L (3.4-5.0) gm/dl Urine 02/15/20 Range/Units 12:00 Urine Color Yellow Urine Appearance Clear (Clear) Urine pH 5.5 (4.5-7.5) Ur Specific [place] 1.012 (1.000-1.030) Urine Protein 1+ H (Negative) Urine Glucose (UA) Negative (Negative) Diagnostic Findings CXR IMPRESSION: 1. Partially loculated moderate right pleural effusion and right mid to lower lung zone airspace opacities. 2. Patchy density at the basal left lower lobe. 3. A 7 cm lobular density within the periphery the right midlung zone may repr esent a loculated pleural fluid. A pleural-based mass could also a similar appearance. This will be better appreciated on the same day chest CT. CT ABD/PELVIS IMPRESSION: 1. Partially loculated moderate right pleural effusion. This is only partially visualized and is better appreciated on the same day chest CT. 2. Trace right subhepatic fluid is also noted. 3. No bowel wall thickening or obstruction. 4. Normal appendix. 5. No hydronephrosis. CTA CHEST IMPRESSION: 1. No evidence of pulmonary thromboembolic disease. 2. Moderate sized loculated right pleural effusion with fluid tracking along the fissures accounting for the nodular opacity seen on chest radiograph of same day. 3. Dependent consolidation of the right lung, the majority of which represents compressive atelectasis. Superimposed pneumonia would be difficult to exclude. 4. Prominent and mildly enlarged mediastinal lymph nodes are likely reactive. 5. Moderate emphysema. 6. Hepatic steatosis. CT LUMBAR SPINE IMPRESSION: 1. No acute lumbar spine fracture or subluxation. 2. Moderate multilevel degenerative disc disease and facet arthrosis within the lumbar spine. Suboptimal evaluation of the central canal and neural foramen given CT technique. 3. Right pleural effusion with pleural thickening. This is suspicious for an empyema. Code Status & VTE Plan Code Status Patient is a DNR as per my discussion with her. VTE Prophylaxis Plan VTE Prophylaxis will be ordered: Yes Supervising Physician Co-Signing Physician Notes HISTORY: Record reviewed. Patient interviewed and examined. Care coordinated with MARYA Marquez. Please refer to her documentation for complete history. Briefly, 69 YO female. Smoker, but apparently no diagnosed COPD. Has a chronic cough, somewhat worse this week. Worsening symptoms 2 days prior to admission with cough, SOB, and right-sided chest pain. Cough productive of white sputum. No documented fever. Seen in clinic and prescribed azithromycin, amoxicillin / clavulanic acid, and naproxen. SARS-CoV-2 was sent to [place] [facility] and was reported positive this morning. O2 sats as low as 88% in ED. EXAM: VS- as noted Constitutional- well nourished; appears to be acutely ill Eyes- PERRL, anicteric sclerae, conjunctivae normal ENMT- external ear and nose normal; oropharynx clear; dentition good Neck- trachea midline; no thyromegaly Respiratory- tachypneic; rales left base; decreased breath sounds right base Cardiovascular- RRR, no murmur/gallop/rub; no JVD; no pretibial edema; normal capillary refill Abdomen- normal bowel sounds, soft, nontender, nondistended; no palpable masses or hepatosplenomegaly Musculoskeletal- no cyanosis Skin- warm & dry; normal color; no rashes Neurologic- no facial palsy; no dysarthria or aphasia; motor strength extremities grossly intact; patellar DTR's 1/2 bilaterally Psychiatric- alert, oriented x 3; normal affect Lymphatic- no cervical adenopathy DATA: 02/15/20 09:15 Hgb 14.1, WBC 37,660 (92% polys), plts 425,000. Lymphocytes = 700. ESR = 64. CRP = 52.4. Procalcitonin = 4.36. Ferritin = 537. CHEST X-RAY IMPRESSION: 1. Partially loculated moderate right pleural effusion and right mid to lower lung zone airspace opacities. 2. Patchy density at the basal left lower lobe. 3. A 7 cm lobular density within the periphery the right midlung zone may represent a loculated pleural fluid. A pleural-based mass could also a similar appearance. This will be better appreciated on the same day chest CT. Electronically signed by: Georgi Magallon M.D. 02/15/2020 10:[address] CHEST IMPRESSION: 1. No evidence of pulmonary thromboembolic disease. 2. Moderate sized loculated right pleural effusion with fluid tracking along the fissures accounting for the nodular opacity seen on chest radiograph of same day. 3. Dependent consolidation of the right lung, the majority of which represents compressive atelectasis. Superimposed pneumonia would be difficult to exclude. 4. Prominent and mildly enlarged mediastinal lymph nodes are likely reactive. 5. Moderate emphysema. 6. Hepatic steatosis. Electronically signed by: Marcin Garzon M.D. 02/15/2020 1:[address] ABD & PELVIS IMPRESSION: 1. Partially loculated moderate right pleural effusion. This is only partially visualized and is better appreciated on the same day chest CT. 2. Trace right subhepatic fluid is also noted. 3. No bowel wall thickening or obstruction. 4. Normal appendix. 5. No hydronephrosis. Electronically signed by: Georgi Magallon M.D. 02/15/2020 1:[address] LUMBAR SPINE IMPRESSION: 1. No acute lumbar spine fracture or subluxation. 2. Moderate multilevel degenerative disc disease and facet arthrosis within the lumbar spine. Suboptimal evaluation of the central canal and neural foramen given CT technique. 3. Right pleural effusion with pleural thickening. This is suspicious for an empyema. Electronically signed by: Carson Chang M.D. 02/15/2020 1:20 PM ASSESSMENT AND PLAN: COVID-19 / HYPOXIA / PLEURAL EFFUSION Complex pulmonary status with loculated pleural effusion. Best to assume COVID-19 pneumonia and offer COVID-specific therapies. Dexamethasone and remdesivir ordered per current guidelines. Potential benefits and risks of convalescent plasma discussed and patient given FDA EUA. Patient would like to receive CCP and signed consent in ED. No apparent pulmonary embolism per CTA. Right pleural effusion, loculated. Possible empyema. Pulmonary Medicine consulted. Received IV vanco, pip/tazo, and levofloxacin in ED. Vancomycin and piperacillin / tazobactam will be continued pending culture results. Continue supplemental O2 for acute hypoxic respiratory failure. SEPSIS Met criteria for sepsis per current CMS guidelines (leukocytosis, tachycardia, tachypnea). Hemodynamically stable. Serum lactate 1.1. Blood cultures obtained in ED and pt receive broad spectrum antibiotics. Likely source- pulmonary as discussed above. VTE PROPHYLAXIS SQ enoxaparin for VTE prophylaxis. Please refer to SON Genao's documentation for discussion of other issues. Daughter Anuj given update at patient's request. She would appreciate updates. Her cell # [phone].
[2020-02-15] MEDS ORDERED: OPTIRAY 320 125ml IV ONE (12:44)
--- NOTE | 2020-02-15 13:07 | CT Scan Report ---
CT angio chest PE protocol CT DOSE: 691.63 mGycm HISTORY: 69 years-old Female with PE. Acute shortness of breath with loculated right pleural effusi on. TECHNIQUE: Multiple CTA images of the chest were obtained after the intravenous administration of 119 ml Optiray 320. Coronal and sagittal MIPS were obtained from the axial data set and were submitted for review. All measurements were obtained according to NASCET criteria. A dose lowering technique w as utilized adhering to the principles of ALARA. COMPARISON: Chest radiograph of same day FINDINGS: CTA: Heart is upper limits of normal in size. Trace pericardial effusion. Minimal coronary artery calcific ations. No thoracic aortic aneurysm or dissection. Mixed plaque at the origin of the left subclavian artery without high-grade stenosis. The pulmonary artery is opacified to the level of the proximal lopez bsegmental branches and demonstrates no filling defects to suggest thromboembolic disease. CT CHEST: Subcentimeter left thyroid nodule. Prominent paratracheal and mildly enlarged subcarinal lymph nodes measuring up to 11 mm likely reactive. There is a moderate sized loculated right pleural effusion. Wi thin the minor fissure calculi abnormality seen on chest radiograph of same day. The dependent consol idation right lower lobe with mild heterogeneous enhancement on image 117 series 4. Minimal dependent subsegmental atelectasis of the left lower lobe. Moderate emphysema. No suspicious pulmonary nodules or masses. Hepatic steatosis. No acute process of the imaged upper abdomen. Soft tissues are unremarkable. Bones appear grossly intact. Degenerative changes of the shoulders and spine. No suspicious bone lesions. IMPRESSION: 1. No evidence of pulmonary thromboembolic disease. 2. Moderate sized loculated right pleural effusion with fluid tracking along the fissures accounting for the nodular opacity seen on chest radiograph of same day. 3. Dependent consolidation of the right lung, the majority of which represents compressive atelectasi s. Superimposed pneumonia would be difficult to exclude. 4. Prominent and mildly enlarged mediastinal lymph nodes are likely reactive. 5. Moderate emphysema. 6. Hepatic steatosis. ACT 112: Negative or not required by law. The above report was generated using voice recognition software. It may contain grammatical, syntax o r spelling errors. Electronically signed by: Marcin Garzon M.D. 02/15/2020 1:06 PM
--- NOTE | 2020-02-15 13:20 | CT Scan Report ---
ABDOMEN AND PELVIS CT WITH IV CONTRAST CT DOSE: HISTORY: Pt c/o Rt sided flank pain TECHNIQUE: Multiaxial CT images of the abdomen and pelvis were performed following the use of intrave nous contrast. A dose lowering technique was utilized adhering to the principles of ALARA. COMPARISON STUDY: Abdomen and pelvis CT 07/25/2016. FINDINGS: Partially loculated moderate right pleural effusion. This is better appreciated on the same day chest CT. This results in near complete compressive atelectasis of the right lower lobe. Emphyse ma. No pneumoperitoneum. No pneumatosis. No fractures within the visualized osseous structures. Focal fat within the left hepatic lobe adjacent to the falciform ligament. No hepatic or splenic masses. T race right subhepatic fluid is noted. Mild right pleural thickening. The gallbladder, pancreas, adren al glands, and kidneys are within normal limits. A few subcentimeter hypodense lesions within the rig ht kidney which are technically too small to characterize but statistically represent cysts. No hydro nephrosis. No retroperitoneal lymphadenopathy. Moderate calcified plaque within the normal caliber ab dominal aorta. The main portal vein is patent. The bladder, uterus, bilateral adnexa are within tania l limits. No pelvic free fluid. No bowel wall thickening or obstruction. Normal appendix. Minimal inf iltration of the fat within the lower anterior pelvis. This is of doubtful clinical significance. IMPRESSION: 1. Partially loculated moderate right pleural effusion. This is only partially visualized and is bett er appreciated on the same day chest CT. 2. Trace right subhepatic fluid is also noted. 3. No bowel wall thickening or obstruction. 4. Normal appendix. 5. No hydronephrosis. ACT 112: Negative or not required by law. Electronically signed by: Georgi Magallon M.D. 02/15/2020 1:19 PM
--- NOTE | 2020-02-15 13:24 | CT Scan Report ---
CT OF THE LUMBAR SPINE CLINICAL HISTORY: Right flank pain. COMPARISON STUDY: Lumbar spine CT July 25, 2016. TECHNIQUE: Helical axial images of the lumbar spine were obtained. Sagittal and coronal reconstruct ions were viewed. Automated exposure control was utilized for the study. A dose lowering technique was utilized adhering to the principles of ALARA. FINDINGS: Please note that the CT of the abdomen and pelvis will be reported separately. A right pleu ral effusion is better depicted on the chest CT. For purposes of numbering on this exam, the L5-S1 di sc space is assigned to axial image 171 of 200. There is slight levoscoliosis of the lumbar spine. Ve rtebral body heights are maintained. There is no fracture or suspicious lesion by CT. There is marked disc space narrowing with endplate irregularity and osteophytosis at L3-L4. There is also marked dis c space narrowing at L2-L3. Slight anterolisthesis of L4 and L5 is due to facet arthrosis. Note is ma de of moderate multilevel degenerative disc disease and facet arthrosis within the lumbar spine. Sacr oiliac joints are intact. The central canal and neural foramen are suboptimally assessed by CT. Parav ertebral soft tissues are unremarkable. IMPRESSION: 1. No acute lumbar spine fracture or subluxation. 2. Moderate multilevel degenerative disc disease and facet arthrosis within the lumbar spine. Subopti mal evaluation of the central canal and neural foramen given CT technique. 3. Right pleural effusion with pleural thickening. This is suspicious for an empyema. ACT 112: Negative or not required by law. Electronically signed by: Carson Chang M.D. 02/15/2020 1:20 PM
--- NOTE | 2020-02-15 16:21 | Procedure Note ---
Procedure Note Date of Service February 15, 2020 Procedure: 8 Belgian pigtail catheter placement in left pleural space. Indication: Complex pleural effusion, possible parapneumonic Consent: Risks and benefits were explained to the patient. She agreed to proceed. Consent was signed and verified. Anesthesia: 5 mL 1% lidocaine locally. Proceduralist: Dr. Carpio Procedure: The patient was placed in a seated position. Limited thoracic ultrasound was performed. This revealed a complex right effusion with multiple septations. Images were not saved due to the patient being in Covid isolation. A site appropriate for pigtail catheter placement was marked. The skin was prepped and draped in normal sterile fashion using chlorhexidine. Using lidocaine, the skin and subcutaneous tissues were anesthetized. I was able to aspirate bloody cloudy fluid using the finder needle. After the tract was completely anesthetized, a finder needle was used to access the pleural space. Again bloody fluid was aspirated. A wire was passed through the needle and the needle was removed leaving the wire in place. A skin michael was made around the wire. An 8 Belgian dilator was used to pass over the wire and dilate the tract. Once the tract was adequately dilated, an 8 Belgian skater catheter was placed over the wire to about 15 cm. The pigtail was locked in place. The stiffening catheter was removed. A sterile dressing was applied. 120 mL of bloody pleural fluid was aspirated using a syringe and then the catheter system was attached to the Pleur-evac system at 20 cm water. 300 mL drained prior to the chest x-ray. Patient is being admitted. Continue antibiotics. Will initiate the mist 2 protocol to see if we can adequately drain this effusion. If not may consider video-assisted thoracoscopic surgery although Covid makes this somewhat difficult. May also consider placement of a larger bore chest tube. Patient tolerated the procedure well without obvious complication Estimated blood loss is minimal Coding CPT Codes Pulmonary/Thoracic - Pulmonary and Thoracic: 40779 Pleural drainage w/imaging ([id number]) [facility] [place] Codes (Charges) Pulmonary/Thoracic Procedure 1: Pulmonary and Thoracic: 23114 Pleural drainage w/imaging
--- NOTE | 2020-02-15 16:31 | Pulmonary Consultation ---
Date of Consultation February 15, 2020 Assessment & Plan (1) Pneumonia due to COVID-19 virus: (2) Pleural effusion, right: (3) Acute respiratory failure with hypoxia: Impression: 69-year-old female with history of tobacco abuse and COPD admitted with COVID-19 pneumonia and what appears to be a complicated right pleural effusion, possibly parapneumonic. Recommendations: 1. COVID-19 pneumonia: Patient has been initiated on remdesivir and dexamethasone per protocols. Continue for now. Would not recommend convalescent plasma given recent data. 2. Hypoxemic respiratory failure: Continue supplemental oxygen titrated to keep saturations at or above 88%. 3. Complex pleural effusion: We will proceed with 8 Finnish pigtail catheter placement. Fluid will be sent for routine microbiologic as well as cytologic analysis. For now I think Zosyn and vancomycin should be adequate. Levaquin will not really add anything at this point time as Pseudomonas does not need to be double covered. Will initiate mist 2 protocol to facilitate drainage. Hopefully the effusion collections communicate. If not may need to consider transfer to a tertiary care center for video-assisted thoracoscopic decortication. Her COVID-19 does complicate this issue. We could also consider potentially upsizing the 8 Finnish chest tube but for now we will see what kind of drainage we get and whether or not intrapleural fibrinolysis is effective. The above recommendations and plan were discussed with the patient. Questions were answered to the best of my ability. She expressed understanding and is in agreement with the plan as outlined History of Present Illness History of Present Illness Asked by hospitalist to assist in management of this patient with pleural effusion and COVID-19 pneumonia. History is obtained from discussion with the patient, discussion with the admitting hospitalist, and reviewed electronic [facility] record. The patient is a 69-year-old female with a history of COPD and tobacco abuse who presented to the emergency room with cough chest pain on the right and shortness of breath. She has been ill for approximately 14 days. Over the last 48 hours she has had progressive symptoms. She was recently placed on azithromycin and Augmentin. She was also tested in the outpatient testing for COVID-19 which unfortunately was positive. Her dyspnea has been markedly worse over the last 24 hours as well as the pain. This prompted evaluation in the emergency room. She was seen and noted to have a significant complex appearing pleural fluid collection. She was initiated on Zosyn, Levaquin, and vancomycin. She received Decadron. Remdesivir was ordered. She is being admitted to the medicine service and we are consulted for additional management. Allergies Allergy/AdvReac Type Severity Reaction Status Date / Time ibuprofen [From Motrin] AdvReac Mild CAUSED GI Verified 02/15/20 09:48 BLEED PAIN MED Allergy Mild HALLUCINATION Uncoded 02/15/20 09:48 AND NAUSEA - PT DOES NOT WORK Home Medications Medication Instructions Recorded Confirmed Type tolterodine 4 mg PO HS 01/18/19 02/15/20 History amoxicillin-pot clavulanate 1 tab PO BID 02/15/20 02/15/20 History azithromycin 250 mg PO UD 02/15/20 02/15/20 History naproxen 500 mg PO BID 02/15/20 02/15/20 History Patient History Medical History History of GI bleed CAUSED BY MOTRIN Hx of cardiac murmur AGE 5 AND NO PROBLEMS Overactive bladder Right rotator cuff tear s/p repair Surgical History History of arthroplasty of left shoulder ROTATOR CUFF REPAIR Hx of colonoscopy Hx of esophagogastroduodenoscopy Hx of foot surgery LEFT FOOT NEUROMA REMOVED Hx of laparoscopy FOR ECTOPIC Hx of LASIK Hx of tonsillectomy Family History Father Heart disease Social History Smoking Status: Current every day smoker Cigarettes Per Day: 1PPD; Second Hand Exposure: No; Hx Alcohol Use: No Hx Substance Use: No Preferred Language: Armenian Communication Ability: Effective Computer Mechanic Required: No Beliefs That Will Affect Care: None Current Living Situation: Alone Feels Safe at Home: Yes Assistive Devices: None Review of Systems Review of Systems: Please refer to the admission H&P. I have no additions or deletions Physical Exam Constitutional: + ill appearing Uncomfortable Neck: trachea midline, no thyromegaly Respiratory: + labored breathing Diminished breath sounds with dullness to percussion at the right lung base Cardiovascular: RRR, no murmur, no edema Gastrointestinal (Abdomen): normal bowel sounds, soft, nontender, no hepatosplenomegaly Musculoskeletal: Extremities: extremities normal to inspection Skin: no rashes, warm and dry Neurologic: Nonfocal exam Lymphatic: no cervical lymphadenopathy Results & Data Results & Data ([facility]) Vital Signs (Past 12 Hours) Vital Signs Temp Pulse Resp BP Pulse Ox 02/15/20 16:10 83 23 98 02/15/20 16:01 93 H 25 H 02/15/20 16:00 93 H 20 132/59 L 02/15/20 15:56 94 H 25 H 118/62 02/15/20 15:50 94 H 25 H 02/15/20 15:40 97 H 32 H 02/15/20 15:30 90 22 105/68 02/15/20 15:20 78 19 95 02/15/20 15:10 78 18 94 02/15/20 15:01 79 20 94 02/15/20 15:00 77 23 92/56 L 94 02/15/20 14:50 36.9 C 81 20 98/54 L 95 02/15/20 14:40 79 18 94 02/15/20 14:31 81 24 94 02/15/20 14:30 78 22 98/54 L 94 02/15/20 14:20 83 21 92 02/15/20 14:10 84 21 92 02/15/20 14:05 88 25 H 121/61 93 02/15/20 14:04 89 27 H 92 02/15/20 13:50 82 25 H 94 02/15/20 13:40 82 20 94 02/15/20 13:31 82 20 95 02/15/20 13:30 84 20 110/64 94 02/15/20 13:20 93 H 20 95 02/15/20 13:10 88 21 94 02/15/20 13:01 91 H 18 96 02/15/20 13:00 89 25 H 95/61 L 96 02/15/20 12:56 93 H 24 02/15/20 12:31 93 H 20 96 02/15/20 12:30 91 H 18 108/57 L 95 02/15/20 12:20 91 H 22 95 02/15/20 12:10 92 H 18 96 02/15/20 12:01 91 H 17 96 02/15/20 12:00 92 H 19 106/58 L 96 02/15/20 11:58 93 H 22 94/56 L 96 02/15/20 11:50 96 H 24 96 02/15/20 11:48 98 H 24 94 02/15/20 11:31 103/73 02/15/20 11:20 93 H 23 97 02/15/20 11:10 103 H 21 95 02/15/20 11:00 96 H 24 93 02/15/20 10:50 93 H 20 98 02/15/20 10:40 92 H 19 98 02/15/20 10:35 93 02/15/20 10:31 92 H 21 99 02/15/20 10:30 93 H 20 121/67 98 02/15/20 10:20 91 H 18 99 02/15/20 10:16 93 02/15/20 10:10 95 H 22 90 02/15/20 10:01 94 H 23 88 L 02/15/20 10:00 91 H 22 102/54 L 89 L 02/15/20 09:50 94 H 22 88 L 02/15/20 09:40 95 H 23 92 02/15/20 09:33 97 H 21 91 02/15/20 09:32 100 H 25 H 117/70 88 L 02/15/20 09:30 19 02/15/20 09:20 97 H 24 89 L 02/15/20 09:11 99 H 24 96 02/15/20 09:08 102 H 24 122/69 96 02/15/20 09:00 36.5 C 115 H 22 122/69 93 Laboratory Results 02/15/20 09:15 02/15/20 09:15 Diagnostic Findings Chest x-ray from today was independently reviewed. There is what appears to be a complex right pleural effusion present. Patchy densities at the left lung base. CT of the chest from today was independently reviewed. A loculated right-sided pleural effusion is noted. No filling defects concerning for thromboembolic disease. Consolidation of the right lung with compressive atelectasis. Mild mediastinal adenopathy and moderate emphysematous disease PG Care Time/CCT Total # of Minutes Spent Total Time Spent with Patient: Total time spent is greater than 50% in coordination of care (as documented) at patient's floor/unit and/or counseling patient: Coding Level of Care Code 39104 Initial Inpt Care Lvl 3 Diagnoses Pneumonia due to COVID-19 virus U07.1; J12.89 Pleural effusion, right J90 Acute respiratory failure with hypoxia J96.01
--- NOTE | 2020-02-15 16:34 | XRay Report ---
SINGLE VIEW CHEST CLINICAL HISTORY: Status post thoracentesis FINDINGS: 2 AP, portable, upright chest radiographs are compared to chest x-ray and chest CT performe d earlier the same day 02/15/2020. The cardiomediastinal silhouette is unremarkable noting atheroscle rotic calcification of the thoracic aorta. A pigtail catheter is now seen projecting over the right l van base. Emphysema and chronic interstitial thickening is similar to previous. Scarring/atelectasis is noted at the left lung base. Fluid is seen along the right minor fissure. There is a moderate resi dual right pleural effusion which is at least partially loculated and tracking towards right apex. Th ere is consolidation of the right lower lung. No pneumothorax is identified post procedure. The bony thorax is grossly intact. IMPRESSION: 1. A pigtail catheter is now seen at the right lung base. No pneumothorax is clearly identified post procedure. 2. There is a loculated right pleural effusion with associated consolidation of the right lower lung. 3. The left lung appears clear. 4. Emphysema. ACT 112: Negative or not required by law. Electronically signed by: Magnus Gomez M.D. 02/15/2020 4:32 PM
[2020-02-15 16:55] LABS: Total Protein Pleural Fluid 4.5 g/dl
[2020-02-15] MEDS ORDERED: REMDESIVIR 200 MG in SODIUM CHLORIDE 0.9% 210 ML IV STA (16:57)
[2020-02-15] MEDS ORDERED: HYDROmorphone INJ 0.5 MG/0.5 ML SYR IV ONE (17:01)
[2020-02-15] MEDS ORDERED: HYDROmorphone INJ 1 MG/ML SYRINGE ONE (17:05)
[2020-02-15 17:31] LABS: Appearance Pleural Fluid CLOUDY; Color Pleural Fluid RED; RBC Pleural Fluid (A) 30000 /uL; Source Pleural Fluid RIGHT LUNG; WBC Pleural Fluid (A) 2313 /uL
[2020-02-15 17:32] LABS: Basophils, Fluid 0 %; Eosinophils, Fluid 6 %; Lymphocytes, Fluid 8 %; Mono,Macrophage,Mesothelial 0 %; Neutrophils, Fluid 86 %
[2020-02-15] MEDS: ENOXAPARIN INJ 40 MG/0.4 ML SYR SQ SCH (18:04)
[2020-02-15] MEDS: SODIUM CHLORIDE 0.9% 10ML FLUSH IV SCH (18:05)
[2020-02-15] MEDS: ONDANSETRON INJ 2 MG/ML 2 ML VIAL IV PRN (19:58)
[2020-02-15] MEDS: TOLTERODINE TARTRATE LA 4 MG CAPCR PO SCH (21:06)
[2020-02-15] MEDS: LACTATED RINGER'S 1,000 ML IV SCH (21:53)
[2020-02-15] MEDS ORDERED: PIPERACILLIN/TAZOBACTAM 3.375 GM in DEXTROSE 5% 100 ML IV ONE (22:00)
--- NOTE | 2020-02-15 23:10 | Electrocardiogram Report ---
Test Reason : Blood Pressure : / mmHG Vent. Rate : 099 BPM Atrial Rate : 099 BPM P-R Int : 126 ms QRS Dur : 084 ms QT Int : 322 ms P-R-T Axes : 074 -16 044 degrees QTc Int : 413 ms Normal sinus rhythm Normal ECG When compared with ECG of 12-DEC-2012 07:55, Vent. rate has increased BY 34 BPM Confirmed by Kris Condon ([id number]) on 02/15/2020 11:09:50 PM Referred By: REFERRED SELF Confirmed By:Kris Condon
[2020-02-16] MEDS: PIPERACILLIN/TAZOBACTAM 3.375 GM in DEXTROSE 5% 100 ML IV SCH ×3 (01:28→18:15)
[2020-02-16] MEDS: HYDROmorphone INJ 0.5 MG/0.5 ML SYR IV PRN ×8 (01:29→22:24)
[2020-02-16] MEDS: LACTATED RINGER'S 1,000 ML IV SCH ×3 (05:01→22:46)
[2020-02-16] MEDS: ONDANSETRON INJ 2 MG/ML 2 ML VIAL IV PRN ×3 (05:01→18:10)
[2020-02-16 07:06] LABS: Hemoglobin 11.8 g/dL (12.0-16.0); Mean Corpuscular Hemoglobin 30.9 pg (25-34); Mean Corpuscular Hgb Conc 32.8 g/dL (32-36); Mean Corpuscular Volume 94.2 fL (80-100); Mean Platelet Volume 9.1 fL (7.4-10.4); Platelet Count 402 K/uL (130-400); RDW Coefficient of Variation 13.9 % (11.5-14.5); RDW Standard Deviation 47.8 fL (36.4-46.3); Red Blood Count 3.82 M/uL (4.2-5.4); White Blood Count 24.33 K/uL (4.8-10.8)
[2020-02-16 07:55] LABS: Alanine Aminotransferase 29 U/L (12-78); Albumin Globulin Ratio 0.5 (0.9-2); Albumin Level 1.9 gm/dl (3.4-5.0); Alkaline Phosphatase 158 U/L (45-117); Aspartate Aminotransferase 12 U/L (15-37); BUN Creatinine Ratio 33.5 (10-20); Bilirubin Direct < 0.1 mg/dl (0-0.2); Bilirubin,Total 0.3 mg/dl (0.2-1); Blood Urea Nitrogen 24 mg/dl (7-18); Calcium 9.1 mg/dl (8.5-10.1); Carbon Dioxide 28 mmol/L (21-32); Chloride 106 mmol/L (98-107); Est GFR (Non-African American) 85.4; Globulin 4.1 gm/dl (2.5-4.0); Glucose 100 mg/dl (70-99); Potassium 4.3 mmol/L (3.5-5.1); Sodium 139 mmol/L (136-145)
[2020-02-16 08:49] LABS: Immature Granulocytes # (auto) 0.07 K/uL (0.00-0.02); Immature Granulocytes % (auto) 0.3 %; Lymphocytes # (auto) 0.66 K/uL (1.2-3.4); Lymphocytes % (auto) 2.7 %; Monocytes # (auto) 1.58 K/uL (0.11-0.59); Monocytes % (auto) 6.5 %; Neutrophils # (auto) 22.02 K/uL (1.4-6.5); Neutrophils % (auto) 90.5 %
[2020-02-16] MEDS ORDERED: DEXAMETHASONE SOD INJ 10 MG/ML VIAL IV SCH (09:00)
[2020-02-16] MEDS: DEXAMETHASONE SOD PHOSPHATE 6 MG in SYRINGE 0 ML IV SCH (10:00)
--- NOTE | 2020-02-16 10:34 | Pulmonology Progress Note ---
Date of Service February 16, 2020 Assessment & Plan (1) Pneumonia due to COVID-19 virus: (2) Pleural effusion, right: (3) Acute respiratory failure with hypoxia: Impression: 69-year-old female with history of tobacco abuse and COPD admitted with COVID-19 pneumonia and what appears to be a complicated right pleural effusion, possibly parapneumonic. She is drained about 500 cc but it appears that the tube was not attached to suction. She is not yet initiated the mist 2 protocol as the orders fell off from the ER transfer. Recommendations: 1. COVID-19 pneumonia: Patient has been initiated on remdesivir and dexamethasone per protocols. Continue for now. Would not recommend conval escent plasma given recent data but defer to primary service. 2. Hypoxemic respiratory failure: Continue supplemental oxygen titrated to keep saturations at or above 88%. 3. Complex pleural effusion: Exudate, likely parapneumonic. Tube will need to be initiated to suction (20 cm) except when the dornase and TPA are indwelling. Initiate mist protocol and follow chest x-ray. Hopefully this will be effective in alleviating the septations. Otherwise may require more aggressive intrapleural procedures including upsizing of chest tube or potentially video- assisted thoracoscopic decortication. Day #2 Zosyn. Continue antibiotics for now pending culture data. May require 2 to 3 weeks of antimicrobial therapy. We will add tramadol for pain control. Toradol may be an additional considera tion if pain control remains problematic The above recommendations and plan were discussed with the patient. Questions were answered to the best of my ability. She expressed understanding and is in agreement with the plan as outlined Admission and Anticipated Discharge Date Admission Date: February 15, 2020 Subjective Patient reports some mild discomfort at the site of the pigtail catheter insertion. She is receiving Dilaudid and states this is effective in alleviatin g her pain. She continues to cough and expectorate some phlegm. Pain is reasonably well controlled. She continues to have chest pain on that side. Review of Systems Review of Systems: Unchanged from prior Physical Exam Constitutional: + ill appearing Neck: trachea midline, no thyromegaly Respiratory: + labored breathing Cardiovascular: RRR, no murmur, no edema Gastrointestinal (Abdomen): normal bowel sounds, soft, nontender, no hepatosplenomegaly Musculoskeletal: Extremities: extremities normal to inspection Skin: no rashes, warm and dry Lymphatic: no cervical lymphadenopathy Results & Data Results & Data ([facility]) Vital Signs (Past 12 Hours) Vital Signs Temp Pulse Pulse Resp BP Pulse Ox 02/16/20 09:51 37.0 C 87 18 122/75 97 02/16/20 03:47 36.8 C 86 18 108/66 95 02/16/20 00:05 37 C 84 18 116/86 94 02/16/20 00:00 89 Laboratory Results 02/16/20 06:34 02/16/20 06:34 Pleural fluid: Differential: 86% neutrophils 8% lymphocytes 6% eosinophils Pleural total protein is 4.5 pH 7.2 Pleural LDH 655 Pleural glucose 86 Cytology pending AFB stains are pending Gram stain showed many PMNs with no organisms, culture pending Diagnostic Findings Chest x-ray from today is currently pending PG Care Time/CCT Total # of Minutes Spent Total Time Spent with Patient: Total time spent is greater than 50% in coordination of care (as documented) at patient's floor/unit and/or counseling patient: Coding Level of Care Code 11347 Subseq Hosp Care Lvl 3 Diagnoses Pneumonia due to COVID-19 virus U07.1; J12.89 Pleural effusion, right J90 Acute respiratory failure with hypoxia J96.01
--- NOTE | 2020-02-16 10:40 | Pharmacy Report ---
Pharmacy Abx Initial Consult - Date of Service February 16, 2020 - Pharmacy Dosing Scope Date of Consult: 02/15/20 Consultation requested by: Winnie Genao [facility] is consulted to initiate VANCOMYCIN/ZOSYN IV dosing therapy, order appropriate labs and adjust drug dose/frequency. - Subjective The patient is a 69 year old F admitted on 02/15/20 11:40. - Objective Height: 5 ft 6 in Weight: 62.8 kg Vital Signs (Past 12hrs): Vital Signs Temp Pulse Pulse Resp BP Pulse Ox 02/16/20 09:51 37.0 C 87 18 122/75 97 02/16/20 03:47 36.8 C 86 18 108/66 95 02/16/20 00:05 37 C 84 18 116/86 94 02/16/20 00:00 89 Lab Results (24hrs): Laboratory Tests (24 Hours) 02/16/20 02/16/20 02/15/20 06:34 06:34 09:15 WBC 24.33 H D Neut # (Auto) 22.02 H ESR Creatinine 0.72 D Est Cr Clr Drug Dosing 69.0 C-Reactive Protein Procalcitonin 4.36 H 02/15/20 02/15/20 02/15/20 09:15 09:15 09:15 WBC 37.66 H* Neut # (Auto) 34.71 H ESR 64 H Creatinine 1.16 Est Cr Clr Drug Dosing 42.8 C-Reactive Protein 52.40 H Procalcitonin Micro Results: 02/15/20 Unknown Gram Stain - Final Pleural Fluid 02/15/20 Unknown Acid Fast Bacilli Smear - Pending Pleural Fluid Acid Fast Bacilli Culture - Pending 02/15/20 11:05 Aerobic Blood Culture - Pending Blood Anaerobic Blood Culture - Pending 02/15/20 09:15 Aerobic Blood Culture - Pending Blood Anaerobic Blood Culture - Pending - Assessment & Plan Assessment 69 year old F admitted with COVID PNA. No pertinent previous medical history. Plan VANCOMYCIN/ZOSYN for treatment of COVID PNA. Vancomycin IV * Loading dose: 1250mg (~19 mg/kg) * Maintenance dose: 1000mg IV (15 mg/kg) every 12 hours (Dosing per Vancomycin AUC dosing protocol). * Goal trough level for PNA : 15 to 20 mcg/mL * Trough level ordered for 02/17/20 @ 1900/ Piperacillin/tazobactam * 4.5g bolus administered over 30 minutes, then 3.375 g IV extended infusion every 8 hours for CrCl greater than 20 mL/min. Pharmacy will continue to follow and will adjust dose/frequency as necessary. Thank you.
[2020-02-16] MEDS ORDERED: VANCOMYCIN HCL 1,250 MG in SODIUM CHLORIDE 0.9% 250 ML IV SCH (11:00)
--- NOTE | 2020-02-16 11:15 | XRay Report ---
XR chest 1V not portable HISTORY: 69 years-old Female pleural effusion right pleural effusion COMPARISON: Chest radiograph 02/15/2020 TECHNIQUE: Portable AP view of the chest FINDINGS: Cardiomediastinal and hilar silhouettes are unchanged. Emphysema. Left lung is generally clear. Stabl e positioning of the right lung base pleural drainage catheter. No pneumothorax. Mildly decreased siz e of the loculated right pleural effusion with persistent right midlung and right lung base opacities . Degenerative changes of the shoulders and spine. IMPRESSION: 1. Unchanged positioning of the right lung base pleural drainage catheter. 2. Slightly decreased size of the loculated right pleural effusion. 3. Unchanged right midlung and right lung base consolidation. 4. Emphysema. ACT 112: Negative or not required by law. The above report was generated using voice recognition software. It may contain grammatical, syntax o r spelling errors. Electronically signed by: Marcin Garzon M.D. 02/16/2020 11:14 AM
[2020-02-16] MEDS: VANCOMYCIN HCL 1,000 MG in SODIUM CHLORIDE 0.9% 250 ML IV SCH ×2 (11:16→22:20)
[2020-02-16] MEDS: ALTEPLASE, RECOMBINANT 10 MG in SYRINGE 50 ML IPL SCH (11:35)
[2020-02-16] MEDS: DORNASE ALFA 5 ML in SYRINGE 25 ML IPL SCH (13:02)
[2020-02-16] MEDS: REMDESIVIR 100 MG in SODIUM CHLORIDE 0.9% 230 ML IV SCH (14:14)
--- NOTE | 2020-02-16 14:23 | Hospitalist Progress Note ---
Date of Service February 16, 2020 Assessment & Plan (1) Pneumonia due to COVID-19 virus: (2) Acute respiratory failure with hypoxia: (3) Sepsis: (4) Pleural effusion, right: Meets sepsis criteria: WBC 37K, heart rate tachycardic 90-low 100s; BP stable, lactic acid 1.1 On admission, Procalcitonin 4.36, CRP 52.4, ESR 64 CT chest was negative for PE but showed Right lung consolidation, loculated right pleural effusion, moderate emphysema S/P Right pigtail catheter placement by Pulmonology on 02/15/20 Pleural fluid analysis is exudative Cytology pending Blood and fluid cultures negative so far Possibly parapeumonic effusion. Continue iv dexamethasone, remdesivir Continue iv vanc and zosyn Pain control Continue oxygen supplementation Science Intern on board. Management of pigtail catheter per recommendations (5) DVT prophylaxis: -SQ Lovenox Called Daughter Ms Anuj Lott and updated her Admission and Anticipated Discharge Date Admission Date: February 15, 2020 Subjective Patient seen and examined. Reports cough and shortness of breath Reports pain at site of pigtail catheter insertion Reported nausea and vomiting this morning. No fevers or chills No abdominal pain, diarrhea No dysuria, frequency or urgency Physical Exam Constitutional: + ill appearing and + well hydrated; no acute distress Eyes: PERRL, conjunctivae normal, anicteric sclerae ENMT: external ear and nose normal, oropharynx normal On nasal cannula 2 L/min Respiratory: no respiratory distress On nasal cannula 2 L/min Reduced breath sounds at lung bases [right more than left] Pleurx catheter on right chest Cardiovascular: Rate/Rhythm: regular rate and regular rhythm S1 S2 Gastrointestinal (Abdomen): normal bowel sounds, soft, nontender, no hepatosplenomegaly Musculoskeletal: No pedal edema Neurologic: PERRL, EOMI, accommodation nl, no face palsy, no dysarthria Psychiatric: Orientation: alert and oriented x 3 Results & Data Results & Data ([facility] [place]) Vital Signs (Past 12 Hours) Vital Signs Temp Pulse Resp BP Pulse Ox 02/16/20 12:20 36.9 C 91 H 18 117/72 94 02/16/20 09:51 37.0 C 87 18 122/75 97 02/16/20 03:47 36.8 C 86 18 108/66 95 Laboratory Results Laboratory Results - last 24 hr 02/15/20 02/15/20 02/15/20 17:20 Unknown Unknown WBC RBC Hgb Hct MCV MCH MCHC RDW Std Deviation RDW Coeff of Steff Plt Count MPV Immature Gran % (Auto) Neut % (Auto) Lymph % (Auto) Posey % (Auto) Eos % (Auto) Baso % (Auto) Neut # (Auto) Lymph # (Auto) Posey # (Auto) Eos # (Auto) Baso # (Auto) Immature Gran # (Auto) Sodium Potassium Chloride Carbon Dioxide Anion Gap BUN Creatinine Est Cr Clr Drug Dosing Est GFR ( Amer) Est GFR (Non-Af Amer) BUN/Creatinine Ratio Glucose Calcium Total Bilirubin Direct Bilirubin AST ALT Alkaline Phosphatase Total Protein Albumin Globulin Albumin/Globulin Ratio Fluid Neutrophils % 86 Fluid Lymphocytes % 8 Fluid Eosinophils % 6 Fluid Basophils % 0 Fluid Meso/Macro/Posey % 0 Pleural Fluid Source RIGHT LUNG Pleural Color RED Pleural Appearance CLOUDY Pleural pH 7.20 L Pleural WBC 2313 Pleural RBC 76605 Pleural Total Protein Pleural LDH Pleural Glucose Blood Type A Positive Antibody Screen NEGATIVE 02/15/20 02/16/20 02/16/20 Unknown 06:34 06:34 WBC 24.33 H D RBC 3.82 L Hgb 11.8 L Hct 36.0 L MCV 94.2 MCH 30.9 MCHC 32.8 RDW Std Deviation 47.8 H RDW Coeff of Steff 13.9 Plt Count 402 H MPV 9.1 Immature Gran % (Auto) 0.3 Neut % (Auto) 90.5 Lymph % (Auto) 2.7 Posey % (Auto) 6.5 Eos % (Auto) 0.0 Baso % (Auto) 0.0 Neut # (Auto) 22.02 H Lymph # (Auto) 0.66 L Posey # (Auto) 1.58 H Eos # (Auto) 0.00 Baso # (Auto) 0.00 Immature Gran # (Auto) 0.07 H Sodium 139 Potassium 4.3 Chloride 106 Carbon Dioxide 28 Anion Gap 5.0 BUN 24 H Creatinine 0.72 D Est Cr Clr Drug Dosing 69.0 Est GFR ( Amer) 99.0 Est GFR (Non-Af Amer) 85.4 BUN/Creatinine Ratio 33.5 H Glucose 100 H Calcium 9.1 Total Bilirubin 0.3 Direct Bilirubin < 0.1 AST 12 L ALT 29 Alkaline Phosphatase 158 H Total Protein 6.0 L Albumin 1.9 L Globulin 4.1 H Albumin/Globulin Ratio 0.5 L Fluid Neutrophils % Fluid Lymphocytes % Fluid Eosinophils % Fluid Basophils % Fluid Meso/Macro/Posey % Pleural Fluid Source Pleural Color Pleural Appearance Pleural pH Pleural WBC Pleural RBC Pleural Total Protein 4.5 Pleural LDH 655 Pleural Glucose 86 Blood Type Antibody Screen
--- NOTE | 2020-02-16 14:58 | Emergency Department Note ---
History of Present Illness General Chief complaint: Illness Stated complaint: SOB Time Seen by Provider: 02/15/20 09:11 Source: patient, EMS, RN notes reviewed and old records reviewed Mode of arrival: EMS Limitations: no limitations History of Present Illness Provider complaint: Pt c/o RT sided chest pain Onset (ago): day(s) 2 Location: back Radiation: flank Severity: severe Pain Consistency: + constant Maximum Pain Intensity: 10 Current Pain Intensity: 10 Quality: + aching Relieved By: + immobilization and + rest Exacerbated By: + movement Associated symptoms: + chest pain, + cough, + fever/chills, + shortness of breath and + weakness Treatments prior to arrival: none This 69-year-old female who presents emergency department complaining of chest pain as well as shortness of breath that has been ongoing for the past 2 days. The patient went to her primary care physician's office and had a Covid swab and has been waiting for those results. In addition to the Covid swab the patient reports taking a deep breath makes the pain worse whereas immobilization and rest makes the pain better. She has been taking Tylenol for the pain without relief of the pain. Home Medications Medication Instructions Recorded Confirmed Type tolterodine 4 mg PO HS 01/18/19 02/15/20 History amoxicillin-pot clavulanate 1 tab PO BID 02/15/20 02/15/20 History azithromycin 250 mg PO UD 02/15/20 02/15/20 History naproxen 500 mg PO BID 02/15/20 02/15/20 History Allergies Allergy/AdvReac Type Severity Reaction Status Date / Time ibuprofen [From Motrin] AdvReac Mild CAUSED GI Verified 02/15/20 09:48 BLEED PAIN MED Allergy Mild HALLUCINATION Uncoded 02/15/20 09:48 AND NAUSEA - PT DOES NOT WORK Past Med/Surg History Medical History History of GI bleed CAUSED BY MOTRIN Hx of cardiac murmur AGE 5 AND NO PROBLEMS Overactive bladder Right rotator cuff tear s/p repair Surgical History History of arthroplasty of left shoulder ROTATOR CUFF REPAIR Hx of colonoscopy Hx of esophagogastroduodenoscopy Hx of foot surgery LEFT FOOT NEUROMA REMOVED Hx of laparoscopy FOR ECTOPIC Hx of LASIK Hx of tonsillectomy Family History Father Heart disease Social History Smoking Status: Current every day smoker Cigarettes Per Day: 1PPD; Second Hand Exposure: No; Hx Alcohol Use: No Hx Substance Use: No Preferred Language: Georgian Communication Ability: Effective Cement Block Maker Required: No Beliefs That Will Affect Care: None Current Living Situation: Alone Feels Safe at Home: Yes Assistive Devices: Oxygen - Continuous Review of Systems A total of 10 systems reviewed and were otherwise negative Physical Exam Vital Signs VITAL SIGNS - Vital signs and nursing notes were reviewed. GENERAL - 69-year-old female appearing stated age who is in moderate distress. Communicates well with provider and answers questions appropriately. SKIN - slight rash to mid thoracic area rt side, in pattern of dermatone, does not cross midline. HEAD - NC/AT. EYES - PERRL with EOMI bilaterally. Sclera anicteric. Palpebral conjunctiva pink and moist with no injection noted. EARS - No deformities of external structures noted on gross examination bilaterally. No pain elicited with palpation of the tragus bilaterally. External auditory canals without discharge or otorrhea. Tympanic membranes pearly lawrence without retraction or bulging. No fluid or purulent material visualized behind the TM. Handle of malleus, umbo, cone of light, pars tensa/flaccid all easily visualized. NOSE - Midline and without cyanosis. No epistaxis or purulent drainage noted. Septum midline without deviation or septal hematoma noted. MOUTH/OROPHARYNX - Without perioral cyanosis. Buccal mucosa pink and moist and without leukoplakia. Tongue midline with equal elevation of palate bilaterally. No tonsillar hypertrophy, erythema, or exudates noted. dentition noted. NECK - Neck with FROM. Supple to palpation. lymphadenopathy noted. No nuchal rigidity. LUNGS - Chest wall symmetric without accessory muscle use, intercostals retr actions, or central cyanosis. Normal vesicular breath sounds CTA B/L. No wheezes, rales, or rhonchi appreciated. CARDIAC - RRR with S1/S2. No murmur, rubs, or gallops appreciated. ABDOMEN - Abdominal contour without pulsations or visible masses. BS normoactive all four quadrants. No tenderness, palpable masses, hepatosplenomegaly, or ascites noted. EXTREMITIES - No clubbing or peripheral cyanosis. No pretibial edema present. +3/5 radial, posterior tibial, and dorsalis pedis pulses palpated throughout. +5/5 strength noted in UE/LE bilaterally. NEUROLOGIC - Cranial nerves II through XII grossly intact. Sensory intact to light touch throughout. Patellar reflexes +2/4. PSYCH - A&Ox3 and cooperates fully with examiner. Pt is very pleasant and interacts well with examiner. Course Administered Medications Enoxaparin Sodium (Enoxaparin Inj 40 Mg/0.4 Ml Syr) 40 mg SQ Q24H KRYSTAL Stop: 03/16/20 16:56 Last Admin: 02/15/20 18:04 Dose: 40 mg Documented by: [id number] Hydromorphone HCl (Hydromorphone Inj 0.5 Mg/0.5 Ml Syr) 0.5 mg IV Q2H PRN PRN Reason: Severe Pain Stop: 02/29/20 17:01 Last Admin: 02/16/20 14:33 Dose: 0.5 mg Documented by: [id number] Admin: 02/16/20 12:32 Dose: 0.5 mg Documented by: [id number] Admin: 02/16/20 10:15 Dose: 0.5 mg Documented by: [id number] Admin: 02/16/20 05:01 Dose: 0.5 mg Documented by: [id number] Admin: 02/16/20 01:29 Dose: 0.5 mg Documented by: [id number] Remdesivir 100 mg/ Sodium (Chloride) 250 mls @ 250 mls/hr IV Q24H KRYSTAL; Protocol Stop: 02/19/20 15:14 Last Admin: 02/16/20 14:14 Dose: 250 mls/hr Documented by: [id number] Dexamethasone Sodium Phosphate (6 mg/ Syringe) 1.5 mls @ 1 mls/min IV QAM KRYSTAL; Protocol Stop: 02/24/20 09:02 Last Admin: 02/16/20 10:00 Dose: 1 mls/min Documented by: [id number] Piperacillin Sod/Tazobactam (Sod 3.375 gm/ Dextrose) 115 mls @ 28.75 mls/hr IV Q8H KRYSTAL; Protocol Stop: 02/23/20 01:59 Last Infusion: 02/16/20 14:43 Dose: 0 mls/hr Documented by: [id number] Admin: 02/16/20 10:43 Dose: 28.8 mls/hr Documented by: [id number] Infusion: 02/16/20 05:28 Dose: 0 mls/hr Documented by: [id number] Admin: 02/16/20 01:28 Dose: 28.8 mls/hr Documented by: [id number] Lactated Ringer's (Lr) 1,000 mls @ 125 mls/hr IV .Q8H KRYSTAL Stop: 03/16/20 21:44 Last Admin: 02/16/20 12:34 Dose: 125 mls/hr Documented by: [id number] Infusion: 02/16/20 12:34 Dose: 125 mls/hr Documented by: [id number] Admin: 02/16/20 05:01 Dose: 125 mls/hr Documented by: [id number] Infusion: 02/16/20 05:01 Dose: 125 mls/hr Documented by: [id number] Admin: 02/15/20 21:53 Dose: 125 mls/hr Documented by: [id number] Alteplase, Recombinant 10 mg/ (Syringe) 60 mls @ 0.0006 mls/min IPL Q12H KRYSTAL; Protocol Stop: 02/19/20 08:59 Last Admin: 02/16/20 11:35 Dose: 0.0006 mls/min Documented by: [id number] Cosigned by: [id number] Dornase Rai 5 ml/ Syringe 30 mls @ 0.0006 mls/min IPL Q12H KRYSTAL; Protocol Stop: 02/19/20 09:59 Last Admin: 02/16/20 13:02 Dose: 0.0006 mls/min Documented by: [id number] Vancomycin HCl 1,000 mg/ (Sodium Chloride) 270 mls @ 200 mls/hr IV Q12H KRYSTAL Stop: 02/23/20 10:59 Last Infusion: 02/16/20 12:37 Dose: 0 mls/hr Documented by: [id number] Admin: 02/16/20 11:16 Dose: 200 mls/hr Documented by: [id number] Ondansetron HCl (Ondansetron Inj 2 Mg/Ml 2 Ml Vial) 4 mg IV Q6H PRN PRN Reason: Nausea Stop: 03/16/20 17:02 Last Admin: 02/16/20 12:31 Dose: 4 mg Documented by: [id number] Admin: 02/16/20 05:01 Dose: 4 mg Documented by: [id number] Admin: 02/15/20 19:58 Dose: 4 mg Documented by: [id number] Sodium Chloride (Sodium Chloride 0.9% 10ml Flush) 30 ml IV Q24H KRYSTAL Stop: 02/19/20 16:58 Last Admin: 02/15/20 18:05 Dose: 30 ml Documented by: [id number] Tolterodine Tartrate (Tolterodine Tartrate La 4 Mg Capcr) 4 mg PO HS KRYSTAL Stop: 03/16/20 20:59 Last Admin: 02/15/20 21:06 Dose: 4 mg Documented by: [id number] Discontinued Medications Dexamethasone (Dexamethasone Sod Inj 4 Mg/Ml Vial) 6 mg IV NOW STA Stop: 02/15/20 10:30 Last Admin: 02/15/20 11:32 Dose: 6 mg Documented by: [id number] Hydromorphone HCl (Hydromorphone Inj 0.5 Mg/0.5 Ml Syr) 0.5 mg IV Q15M PRN PRN Reason: Pain Stop: 02/29/20 10:28 Last Admin: 02/15/20 11:32 Dose: 0.5 mg Documented by: [id number] Hydromorphone HCl (Hydromorphone Inj 0.5 Mg/0.5 Ml Syr) 0.5 mg IV NOW ONE Stop: 02/15/20 17:02 Last Admin: 02/15/20 17:21 Dose: Not Given Documented by: [id number] Hydromorphone HCl (Hydromorphone Inj 1 Mg/Ml Syringe) Confirm Administered Dose 1 mg .ROUTE .STK-MED ONE Stop: 02/15/20 17:06 Last Increment: 02/15/20 17:14 Dose: 0.5 mg Documented by: [id number] Acetaminophen (Ofirmev) 1,000 mg in 100 mls @ 400 mls/hr IV NOW STA Stop: 02/15/20 10:42 Last Infusion: 02/15/20 11:50 Dose: 400 mls/hr Documented by: [id number] Admin: 02/15/20 11:32 Dose: 400 mls/hr Documented by: [id number] Magnesium Sulfate/Dextrose (Magnesium Sulfate / D5w) 1 gm in 100 mls @ 100 mls/hr IV NOW STA Stop: 02/15/20 11:31 Last Infusion: 02/15/20 13:05 Dose: 0 mls/hr Documented by: [id number] Admin: 02/15/20 11:33 Dose: 100 mls/hr Documented by: [id number] Piperacillin Sod/Tazobactam Sod (Zosyn) 4.5 gm in 120 mls @ 240 mls/hr IV NOW ONE Stop: 02/15/20 11:38 Last Infusion: 02/15/20 13:05 Dose: 0 mls/hr Documented by: [id number] Admin: 02/15/20 11:33 Dose: 240 mls/hr Documented by: [id number] Levofloxacin/Dextrose (Levaquin/D5w) 750 mg in 150 mls @ 100 mls/hr IV NOW STA Stop: 02/15/20 12:38 Last Infusion: 02/15/20 13:05 Dose: 0 mls/hr Documented by: [id number] Admin: 02/15/20 11:33 Dose: 100 mls/hr Documented by: [id number] Vancomycin HCl 1,250 mg/ (Sodium Chloride) 525 mls @ 200 mls/hr IV NOW ONE Stop: 02/15/20 13:46 Last Infusion: 02/15/20 14:31 Dose: 0 mls/hr Documented by: [id number] Admin: 02/15/20 11:33 Dose: 200 mls/hr Documented by: [id number] Remdesivir 200 mg/ Sodium (Chloride) 250 mls @ 125 mls/hr IV ONE STA; Protocol Stop: 02/15/20 18:56 Last Infusion: 02/15/20 20:03 Dose: 0 mls/hr Documented by: [id number] Admin: 02/15/20 18:03 Dose: 125 mls/hr Documented by: [id number] Piperacillin Sod/Tazobactam (Sod 3.375 gm/ Dextrose) 115 mls @ 230 mls/hr IV NOW ONE; Protocol Stop: 02/15/20 22:29 Last Infusion: 02/15/20 22:23 Dose: 0 mls/hr Documented by: [id number] Admin: 02/15/20 21:53 Dose: 230 mls/hr Documented by: [id number] Ioversol (Optiray 320 125ml) 119 ml IV ONCE ONE Stop: 02/15/20 12:45 Last Admin: 02/15/20 12:44 Dose: 119 ml Documented by: [id number] Levalbuterol HCl (Levalbuterol Tartrate 15 Gm Hfa.Aer.Ad) 2 puffs INH NOW STA Stop: 02/15/20 10:32 Last Admin: 02/15/20 11:49 Dose: 2 puffs Documented by: [id number] Lidocaine (Lidocaine 5% 1 Patch) 1 patch TD NOW STA Stop: 02/15/20 10:28 Last Admin: 02/15/20 11:31 Dose: 1 patch Documented by: [id number] Ondansetron HCl (Ondansetron Inj 2 Mg/Ml 2 Ml Vial) Confirm Administered Dose 4 mg .ROUTE .STK-MED ONE Stop: 02/15/20 09:14 Last Admin: 02/15/20 09:15 Dose: 4 mg Documented by: [id number] Ondansetron HCl (Ondansetron Inj 2 Mg/Ml 2 Ml Vial) 4 mg IV NOW STA Stop: 02/15/20 10:29 Last Admin: 02/15/20 11:32 Dose: 4 mg Documented by: [id number] Ondansetron HCl (Ondansetron Inj 2 Mg/Ml 2 Ml Vial) Confirm Administered Dose 4 mg .ROUTE .STK-MED ONE Stop: 02/15/20 17:08 Last Admin: 02/15/20 17:14 Dose: 4 mg Documented by: [id number] Valacyclovir HCl (Valacyclovir Hcl 500 Mg Tablet) 1,000 mg PO NOW ONE Stop: 02/15/20 10:31 Last Admin: 02/15/20 11:33 Dose: 1,000 mg Documented by: [id number] Critical Care Time I have personally spent greater than 30 minutes of critical care time in the direct management of this patient. This includes bedside care, interpretation of diagnostic studies, and testing, discussion with consultants, patient, and family members, and other required patient management activities. This 30 minutes is in excess of all separately billable procedures. Medical Decision Making Differential Diagnosis Reactive airway disease, pneumonia, pneumothorax, COPD, CHF, infections, cardiac ischemia, pulmonary embolism, musculoskeletal, gastrointestinal, as well as other pathologies. Medical Records Attestation: I reviewed the patient's medical records. Home Medications Current Medication List: was personally reviewed by me Laboratory Data Attestation: I reviewed the patient's lab results. Result diagrams: 02/16/20 06:34 02/16/20 06:34 Lab Results 02/15/20 02/15/20 02/15/20 Range/Units 09:15 09:15 09:15 WBC 37.66 H* (4.8-10.8) K/uL RBC 4.50 (4.2-5.4) M/uL Hgb 14.1 (12.0-16.0) g/dL POC Hgb (12.0-16.0) g/dl Hct 41.9 (37-47) % POC Hct (37-47) % MCV 93.1 (80-100) fL MCH 31.3 (25-34) pg MCHC 33.7 (32-36) g/dL RDW Std Deviation 47.0 H (36.4-46.3) fL RDW Coeff of Steff 13.7 (11.5-14.5) % Plt Count 425 H (130-400) K/uL MPV 9.6 (7.4-10.4) fL Immature Gran % (Auto) 0.5 % Neut % (Auto) 92.1 % Lymph % (Auto) 1.9 % Brown % (Auto) 5.4 % Eos % (Auto) 0.0 % Baso % (Auto) 0.1 % Neut # (Auto) 34.71 H (1.4-6.5) K/uL Lymph # (Auto) 0.70 L (1.2-3.4) K/uL Brown # (Auto) 2.05 H (0.11-0.59) K/uL Eos # (Auto) 0.01 (0-0.5) K/uL Baso # (Auto) 0.02 (0-0.2) K/uL Immature Gran # (Auto) 0.17 H (0.00-0.02) K/uL Echinocytes 1+ ESR 64 H (0-21) mm/hr PT 11.4 (9.0-12.0) Seconds INR 1.1 (0.9-1.1) APTT 38.4 H (21.0-31.0) Seconds PTT Ratio 1.4 POC Sodium (135-144) mmol/L Sodium (136-145) mmol/L POC Potassium (3.3-5.0) mmol/L Potassium (3.5-5.1) mmol/L POC Chloride (101-112) mmol/L Chloride (98-107) mmol/L Carbon Dioxide (21-32) mmol/L POC Total CO2 (24-31) mmol/L Anion Gap (3-11) POC Anion Gap (16-25) mmol/L POC BUN (7-18) mg/dl BUN (7-18) mg/dl Creatinine (0.6-1.2) mg/dl POC Creatinine (0.6-1.3) mg/dl Est Cr Clr Drug Dosing ml/min Est GFR ( Amer) Est GFR (Non-Af Amer) BUN/Creatinine Ratio (10-20) Glucose (70-99) mg/dl POC Glucose (other) (70-99) mg/dl Lactate (0.4-2.0) mmol/L Calcium (8.5-10.1) mg/dl POC Ioniz Calcium Pavan (1.12-1.32) mmol/l Magnesium (1.8-2.4) mg/dl Ferritin (8-388) ng/ml Total Bilirubin (0.2-1) mg/dl AST (15-37) U/L ALT (12-78) U/L Alkaline Phosphatase (45-117) U/L Troponin I (0-0.045) ng/ml C-Reactive Protein (0-0.29) mg/dl Total Protein (6.4-8.2) gm/dl Albumin (3.4-5.0) gm/dl Globulin (2.5-4.0) gm/dl Albumin/Globulin Ratio (0.9-2) Procalcitonin (0-0.5) ng/ml 02/15/20 02/15/20 02/15/20 Range/Units 09:15 09:15 11:05 WBC (4.8-10.8) K/uL RBC (4.2-5.4) M/uL Hgb (12.0-16.0) g/dL POC Hgb (12.0-16.0) g/dl Hct (37-47) % POC Hct (37-47) % MCV (80-100) fL MCH (25-34) pg MCHC (32-36) g/dL RDW Std Deviation (36.4-46.3) fL RDW Coeff of Steff (11.5-14.5) % Plt Count (130-400) K/uL MPV (7.4-10.4) fL Immature Gran % (Auto) % Neut % (Auto) % Lymph % (Auto) % Brown % (Auto) % Eos % (Auto) % Baso % (Auto) % Neut # (Auto) (1.4-6.5) K/uL Lymph # (Auto) (1.2-3.4) K/uL Brown # (Auto) (0.11-0.59) K/uL Eos # (Auto) (0-0.5) K/uL Baso # (Auto) (0-0.2) K/uL Immature Gran # (Auto) (0.00-0.02) K/uL Echinocytes ESR (0-21) mm/hr PT (9.0-12.0) Seconds INR (0.9-1.1) APTT (21.0-31.0) Seconds PTT Ratio POC Sodium (135-144) mmol/L Sodium 133 L (136-145) mmol/L POC Potassium (3.3-5.0) mmol/L Potassium 4.1 (3.5-5.1) mmol/L POC Chloride (101-112) mmol/L Chloride 101 (98-107) mmol/L Carbon Dioxide 26 (21-32) mmol/L POC Total CO2 (24-31) mmol/L Anion Gap 6.0 (3-11) POC Anion Gap (16-25) mmol/L POC BUN (7-18) mg/dl BUN 27 H (7-18) mg/dl Creatinine 1.16 (0.6-1.2) mg/dl POC Creatinine (0.6-1.3) mg/dl Est Cr Clr Drug Dosing 42.8 ml/min Est GFR ( Amer) 55.6 Est GFR (Non-Af Amer) 48.0 BUN/Creatinine Ratio 22.9 H (10-20) Glucose 136 H (70-99) mg/dl POC Glucose (other) (70-99) mg/dl Lactate 1.1 (0.4-2.0) mmol/L Calcium 9.3 (8.5-10.1) mg/dl POC Ioniz Calcium Pavan (1.12-1.32) mmol/l Magnesium 2.5 H (1.8-2.4) mg/dl Ferritin 537.2 H (8-388) ng/ml Total Bilirubin 0.6 (0.2-1) mg/dl AST 20 (15-37) U/L ALT 54 (12-78) U/L Alkaline Phosphatase 176 H (45-117) U/L Troponin I < 0.015 (0-0.045) ng/ml C-Reactive Protein 52.40 H (0-0.29) mg/dl Total Protein 7.1 (6.4-8.2) gm/dl Albumin 2.7 L (3.4-5.0) gm/dl Globulin 4.4 H (2.5-4.0) gm/dl Albumin/Globulin Ratio 0.6 L (0.9-2) Procalcitonin 4.36 H (0-0.5) ng/ml 02/15/20 Range/Units 11:09 WBC (4.8-10.8) K/uL RBC (4.2-5.4) M/uL Hgb (12.0-16.0) g/dL POC Hgb 14.3 (12.0-16.0) g/dl Hct (37-47) % POC Hct 42 (37-47) % MCV (80-100) fL MCH (25-34) pg MCHC (32-36) g/dL RDW Std Deviation (36.4-46.3) fL RDW Coeff of Steff (11.5-14.5) % Plt Count (130-400) K/uL MPV (7.4-10.4) fL Immature Gran % (Auto) % Neut % (Auto) % Lymph % (Auto) % Brown % (Auto) % Eos % (Auto) % Baso % (Auto) % Neut # (Auto) (1.4-6.5) K/uL Lymph # (Auto) (1.2-3.4) K/uL Brown # (Auto) (0.11-0.59) K/uL Eos # (Auto) (0-0.5) K/uL Baso # (Auto) (0-0.2) K/uL Immature Gran # (Auto) (0.00-0.02) K/uL Echinocytes ESR (0-21) mm/hr PT (9.0-12.0) Seconds INR (0.9-1.1) APTT (21.0-31.0) Seconds PTT Ratio POC Sodium 136 (135-144) mmol/L Sodium (136-145) mmol/L POC Potassium 4.3 (3.3-5.0) mmol/L Potassium (3.5-5.1) mmol/L POC Chloride 102 (101-112) mmol/L Chloride (98-107) mmol/L Carbon Dioxide (21-32) mmol/L POC Total CO2 23 L (24-31) mmol/L Anion Gap (3-11) POC Anion Gap 17.0 (16-25) mmol/L POC BUN 23 H (7-18) mg/dl BUN (7-18) mg/dl Creatinine (0.6-1.2) mg/dl POC Creatinine 0.9 (0.6-1.3) mg/dl Est Cr Clr Drug Dosing ml/min Est GFR ( Amer) Est GFR (Non-Af Amer) BUN/Creatinine Ratio (10-20) Glucose (70-99) mg/dl POC Glucose (other) 121 H (70-99) mg/dl Lactate (0.4-2.0) mmol/L Calcium (8.5-10.1) mg/dl POC Ioniz Calcium Pavan 1.15 (1.12-1.32) mmol/l Magnesium (1.8-2.4) mg/dl Ferritin (8-388) ng/ml Total Bilirubin (0.2-1) mg/dl AST (15-37) U/L ALT (12-78) U/L Alkaline Phosphatase (45-117) U/L Troponin I (0-0.045) ng/ml C-Reactive Protein (0-0.29) mg/dl Total Protein (6.4-8.2) gm/dl Albumin (3.4-5.0) gm/dl Globulin (2.5-4.0) gm/dl Albumin/Globulin Ratio (0.9-2) Procalcitonin (0-0.5) ng/ml Imaging Data Radiologist's Impression: [facility], [id number] XRay Report Patient: CARMEN URBINA Date: 02/15/20MR#: [id number]: [id number] AMBER[address] LAWSONAcct ID:[id number]: Date: [address] [place] [address] Zip: [place] [id number]: 69Location: EDSex: FRoom/Bed:Att Phy:Diagnosis: SOBPri Phy: Isela Hester, DOService Date: 02/15/20Fam Phy:Interpreting Phy: Georgi Magallon MDAdmit Phy: Ordering Phy: Malvin Austin MD cc: ~ XR chest 1V portable HISTORY: SEPSIS COMPARISON: None. FINDINGS: No pneumothorax. Partially loculated moderate right pleural effusion. There are hazy airspace opacities within the right mid to lower lung zone. Patchy densities are also seen at the left lung base. The heart is borderline enlarged. A 7 cm lobular density within the periphery the right midlung zone may represent a loculated pleural fluid. A pleural-based mass could also a similar appearance. IMPRESSION: 1. Partially loculated moderate right pleural effusion and right mid to lower lung zone airspace opacities. 2. Patchy density at the basal left lower lobe. 3. A 7 cm lobular density within the periphery the right midlung zone may represent a loculated pleural fluid. A pleural-based mass could also a similar appearance. This will be better appreciated on the same day chest CT. ACT 112: Negative or not required by law. Electronically signed by: Georgi Magallon M.D. 02/15/2020 10:56 AM Dictated: 02/15/20 1055Transcribed: 02/15/20 1055 [facility], [phone] CT Scan Report Patient: CARMEN URBINA Date: 02/15/20MR#: [id number]: 3[address] AMBER[address] LAWSONAcct ID:[id number]: Date: [address] [place] [address] Zip: [place] [id number]: 69Location: EDSex: FRoom/Bed:Att Phy:Diagnosis: SOBPri Phy: Hester Isela Claudia, DOService Date: 02/15/20Fa Phy:Interpreting Phy: Georgi Magallon MDAdmit Phy: Ordering Phy: Malvin Austin MD cc: ~ ABDOMEN AND PELVIS CT WITH IV CONTRAST CT DOSE: HISTORY: Pt c/o Rt sided flank pain TECHNIQUE: Multiaxial CT images of the abdomen and pelvis were performed following the use of intravenous contrast. A dose lowering technique was utilized adhering to the principles of ALARA. COMPARISON STUDY: Abdomen and pelvis CT 07/25/2016. FINDINGS: Partially loculated moderate right pleural effusion. This is better appreciated on the same day chest CT. This results in near complete compressive atelectasis of the right lower lobe. Emphysema. No pneumoperitoneum. No pneumatosis. No fractures within the visualized osseous structures. Focal fat within the left hepatic lobe adjacent to the falciform ligament. No hepatic or splenic masses. Trace right subhepatic fluid is noted. Mild right pleural thickening. The gallbladder, pancreas, adrenal glands, and kidneys are within normal limits. A few subcentimeter hypodense lesions within the right kidney which are technically too small to characterize but statistically represent cyst s. No hydronephrosis. No retroperitoneal lymphadenopathy. Moderate calcified plaque within the normal caliber abdominal aorta. The main portal vein is patent. The bladder, uterus, bilateral adnexa are within normal limits. No pelvic free fluid. No bowel wall thickening or obstruction. Normal appendix. Minimal infiltration of the fat within the lower anterior pelvis. This is of doubtful clinical significance. IMPRESSION: 1. Partially loculated moderate right pleural effusion. This is only partially visualized and is better appreciated on the same day chest CT. 2. Trace right subhepatic fluid is also noted. 3. No bowel wall thickening or obstruction. 4. Normal appendix. 5. No hydronephrosis. ACT 112: Negative or not required by law. Electronically signed by: Georgi Magallon M.D. 02/15/2020 1:19 PM Dictated: 02/15/20 1303Transcribed: 02/15/20 1303 [facility], [phone] CT Scan Report Patient: CARMEN URBINA Date: 02/15/20#: [id number]: [address] [facility] ID:[id number]: Date: 1950[facility] Zip: [place] [id number]: 69Location: EDSex: FRoom/Bed:Att Phy:Diagnosis: SOBPri Phy: Isela Hester, DOService Date: 02/15/20Fam Phy:Interpreting Phy: Ángel GarzonAdmit Phy: Ordering Phy: Malvin Austin MD cc: ~ CT angio chest PE protocol CT DOSE: 691.63 mGycm HISTORY: 69 years-old Female with PE. Acute shortness of breath with loculated right pleural effusion. TECHNIQUE: Multiple CTA images of the chest were obtained after the intravenous administration of 119 ml Optiray 320. Coronal and sagittal MIPS were obtained from the axial data set and were submitted for review. All measurements were obtained according to NASCET criteria. A dose lowering technique was utilized adhering to the principles of ALARA. COMPARISON: Chest radiograph of same day FINDINGS: CTA: Heart is upper limits of normal in size. Trace pericardial effusion. Minimal coronary artery calcifications. No thoracic aortic aneurysm or dissection. Mixed plaque at the origin of the left subclavian artery without high-grade stenosis. The pulmonary artery is opacified to the level of the proximal subsegmental branches and demonstrates no filling defects to suggest thromboembolic disease. CT CHEST: Subcentimeter left thyroid nodule. Prominent paratracheal and mildly enlarged subcarinal lymph nodes measuring up to 11 mm likely reactive. There is a moderate sized loculated right pleural effusion. Within the minor fissure calculi abnormality seen on chest radiograph of same day. The dependent consolidation right lower lobe with mild heterogeneous enhancement on image 117 series 4. Minimal dependent subsegmental atelectasis of the left lower lobe. Moderate emphysema. No suspicious pulmonary nodules or masses. Hepatic steatosis. No acute process of the imaged upper abdomen. Soft tissues are unremarkable. Bones appear grossly intact. Degenerative changes of the shoulders and spine. No suspicious bone lesions. IMPRESSION: 1. No evidence of pulmonary thromboembolic disease. 2. Moderate sized loculated right pleural effusion with fluid tracking along the fissures accounting for the nodular opacity seen on chest radiograph of same day. 3. Dependent consolidation of the right lung, the majority of which represents compressive atelectasis. Superimposed pneumonia would be difficult to exclude. 4. Prominent and mildly enlarged mediastinal lymph nodes are likely reactive. 5. Moderate emphysema. 6. Hepatic steatosis. ACT 112: Negative or not required by law. The above report was generated using voice recognition software. It may contain grammatical, syntax or spelling errors. Electronically signed by: Marcin Garzon M.D. 02/15/2020 1:06 PM Dictated: 02/15/20 1255Transcribed: 02/15/20 1255 [facility], [id number] CT Scan Report Patient: CARMEN URBINA Date: 02/15/20#: [id number]: [id number] [facility]ITAL[facility]ct ID:[id number]: [facility]: [facility] Zip: [place] [id number]: [id number]: EDSex: FRoom/Bed:Att Phy:Diagnosis: SOBPri Phy: Isela Hester, DOService Date: 02/15/20Fam Phy:Interpreting Phy: Carson Chang MDAdmit Phy: Ordering Phy: Malvin Austin MD cc: ~ CT OF THE LUMBAR SPINE CLINICAL HISTORY: Right flank pain. COMPARISON STUDY: Lumbar spine CT July 25, 2016. TECHNIQUE: Helical axial images of the lumbar spine were obtained. Sagittal and coronal reconstructions were viewed. Automated exposure control was utilized for the study. A dose lowering technique was utilized adhering to the principles of ALARA. FINDINGS: Please note that the CT of the abdomen and pelvis will be reported separately. A right pleural effusion is better depicted on the chest CT. For purposes of numbering on this exam, the L5-S1 disc space is assigned to axial image 171 of 200. There is slight levoscoliosis of the lumbar spine. Vertebral body heights are maintained. There is no fracture or suspicious lesion by CT. There is marked disc space narrowing with endplate irregularity and osteophytosis at L3-L4. There is also marked disc space narrowing at L2-L3. Slight anterolisthesis of L4 and L5 is due to facet arthrosis. Note is made of moderate multilevel degenerative disc disease and facet arthrosis within the lumbar spine. Sacroiliac joints are intact. The central canal and neural foramen are suboptimally assessed by CT. Paravertebral soft tissues are unremarkable. IMPRESSION: 1. No acute lumbar spine fracture or subluxation. 2. Moderate multilevel degenerative disc disease and facet arthrosis within the lumbar spine. Suboptimal evaluation of the central canal and neural foramen given CT technique. 3. Right pleural effusion with pleural thickening. This is suspicious for an empyema. ACT 112: Negative or not required by law. Electronically signed by: Carson Chang M.D. 02/15/2020 1:20 PM Dictated: 02/15/201311Transcribed: 02/15/201311 ECG Data Attestation: I personally reviewed and interpreted this ECG as follows: Indication: + other (back pain ) Rate (beats per minute): 99 Rhythm: + normal sinus ECG Intervals/blocks: + Normal QT-c (413) ECG [place]: + Normal ECG ST segments: no ST depression and no ST elevation Comparison ECG Date: from (12/12/2012) Change: the following changes noted (rate increased by 34 ) MDM Narrative This 69-year-old female presents emergency department complaining of severe right-sided back pain. The patient has a positive Covid test. She was started on Decadron as she is requiring oxygen here. In addition the patient has a very severe pneumonia. She had to subsequently sent for CAT scan of the chest which is concerning for pleural effusion. She has a very large elevation in her white blood cell count. She was started on broad-spectrum antibiotics she was discussed with both the hospitalist as well as the intensive care unit. Patient was also given Tylenol. Because of the rash on her back she was started on Valtrex. patient was seen and evaluated as above in room C10. Review was performed of nursing notes and vital signs. I did review pertinent previous visits and patient history. After obtaining a thorough history and physical examination the above work up was performed. An order was placed for continuous cardiac monitoring. The monitor shows a rate of 91 with Normal SInus rhythm. The patient was evaluated during the global COVID-19 pandemic, and that diagnosis was suspected/considered upon their initial presentation. Their evaluation, treatment and testing was consistent with current guidelines for patients who present with complaints or symptoms that may be related to COVID- 19. Impression & Plan Sepsis, Pleural effusion, right, Acute respiratory failure with hypoxia, Pneumonia due to COVID-19 virus Discharge Plan Visit Data Chief Complaint: Illness Stated Complaint: SOB ED Provider: Malvin Austin Discharge Problem: Sepsis, Pleural effusion, right, Acute respiratory failure with hypoxia, Pneumonia due to COVID-19 virus Patient Disposition: Admitted As Inpatient Discharge Instructions Interventions: ED Discharge Assessment Last Done: 02/15/20 16:33
[2020-02-16] MEDS: SODIUM CHLORIDE 0.9% 10ML FLUSH IV SCH (15:53)
[2020-02-16] MEDS: ENOXAPARIN INJ 40 MG/0.4 ML SYR SQ SCH (18:10)
[2020-02-16] MEDS: TOLTERODINE TARTRATE LA 4 MG CAPCR PO SCH (20:56)
[2020-02-17] MEDS: ALTEPLASE, RECOMBINANT 10 MG in SYRINGE 50 ML IPL SCH ×3 (00:03→23:40)
[2020-02-17] MEDS: ONDANSETRON INJ 2 MG/ML 2 ML VIAL IV PRN ×3 (01:30→14:15)
[2020-02-17] MEDS: HYDROmorphone INJ 0.5 MG/0.5 ML SYR IV PRN ×5 (01:30→23:39)
[2020-02-17] MEDS: DORNASE ALFA 5 ML in SYRINGE 25 ML IPL SCH ×2 (01:44→12:59)
[2020-02-17] MEDS: PIPERACILLIN/TAZOBACTAM 3.375 GM in DEXTROSE 5% 100 ML IV SCH ×3 (02:58→17:29)
[2020-02-17] MEDS: LACTATED RINGER'S 1,000 ML IV SCH ×2 (05:45→16:22)
[2020-02-17 07:28] LABS: Basophils # (auto) 0.01 K/uL (0-0.2); Basophils % (auto) 0.1 %; Hematocrit (blood only) 37.8 % (37-47); Hemoglobin 12.3 g/dL (12.0-16.0); Immature Granulocytes # (auto) 0.04 K/uL (0.00-0.02); Immature Granulocytes % (auto) 0.2 %; Lymphocytes % (auto) 5.8 %; Mean Corpuscular Hemoglobin 30.9 pg (25-34); Mean Corpuscular Hgb Conc 32.5 g/dL (32-36); Mean Platelet Volume 9.1 fL (7.4-10.4); Monocytes # (auto) 1.65 K/uL (0.11-0.59); Monocytes % (auto) 8.7 %; Neutrophils # (auto) 16.26 K/uL (1.4-6.5); Neutrophils % (auto) 85.2 %; Platelet Count 513 K/uL (130-400); RDW Coefficient of Variation 14.1 % (11.5-14.5); RDW Standard Deviation 49.1 fL (36.4-46.3); Red Blood Count 3.98 M/uL (4.2-5.4); White Blood Count 19.06 K/uL (4.8-10.8)
[2020-02-17 07:55] LABS: BUN Creatinine Ratio 38.4 (10-20); Calcium 8.8 mg/dl (8.5-10.1); Creatinine Clr Calc Pharmacy 78.9 ml/min; Est GFR (African American) 106.1; Est GFR (Non-African American) 91.5; Potassium 3.9 mmol/L (3.5-5.1)
[2020-02-17 08:03] LABS: Albumin Globulin Ratio 0.5 (0.9-2); Bilirubin Direct 0.1 mg/dl (0-0.2); Bilirubin,Total 0.4 mg/dl (0.2-1); C Reactive Protein 22.1 mg/dl (0-0.29)
--- NOTE | 2020-02-17 08:17 | XRay Report ---
SINGLE VIEW CHEST CLINICAL HISTORY: Pleural effusion. FINDINGS: An AP, portable, upright chest radiograph is compared to chest x-ray dated 02/16/2020 and c orrelated with chest CT performed 02/15/2020. The cardiomediastinal silhouette is unremarkable noting atherosclerotic calcification of the thoracic aorta. A pigtail catheter at the right lung base is un changed in position. Emphysema and chronic interstitial thickening are again noted. There is a small residual right pleural effusion. This has continued to decrease in size from yesterday. Trace pleural effusion is seen on the left. Consolidation the right midlung is again noted. Scarring/atelectasis i s present at both lung bases. No pneumothorax is identified. The skeletal structures are osteopenic. The bony thorax is grossly intact. IMPRESSION: 1. A pigtail catheter at the right lung base is unchanged in position. 2. The right pleural effusion has continued to decrease in size as compared to yesterday. 3. Airspace opacities in the right midlung are again noted. 4. Emphysema. ACT 112: Negative or not required by law. Electronically signed by: Magnus Gomez M.D. 02/17/2020 8:16 AM
[2020-02-17] MEDS: DEXAMETHASONE SOD PHOSPHATE 6 MG in SYRINGE 0 ML IV SCH (09:01)
--- NOTE | 2020-02-17 10:53 | Pulmonology Progress Note ---
Date of Service February 17, 2020 Assessment & Plan (1) Pneumonia due to COVID-19 virus: (2) Pleural effusion, right: (3) Acute respiratory failure with hypoxia: Impression: 69-year-old female with history of tobacco abuse and COPD admitted with COVID-19 pneumonia and what appears to be a complicated right pleural effusion, possibly parapneumonic. CXr improving with drainage but not resolved. Recommendations: 1. COVID-19 pneumonia: Patient has been initiated on remdesivir and dexa methasone per protocols. Continue for now. Would not recommend convalescent plasma given recent data but defer to primary service. 2. Hypoxemic respiratory failure: Continue supplemental oxygen titrated to keep saturations at or above 88%. 3. Complex pleural effusion: Exudate, likely parapneumonic. Output 1 L last 24 hours. Continue mist protocol and follow chest x-ray. Hopefully this will be effective in alleviating the loculations. Otherwise may require more aggressive intrapleural procedures including upsizing of chest tube or potentially video- assisted thoracoscopic decortication. Day #3Zosyn. Continue antibiotics for now pending culture data. May require 2 to 3 weeks of antimicrobial therapy. Continue pain control. Cytology pending, jese not available until next week. The above recommendations and plan were discussed with the patient. Questions were answered to the best of my ability. She expressed understanding and is in agreement with the plan as outlined. Called patient daughter per patient request and updated on phone. Admission and Anticipated Discharge Date Admission Date: February 15, 2020 Subjective Patient seen and examined. She states she is feeling slightly better. She continues to experience some mild discomfort associated with the tube. Review of Systems Review of Systems: All systems reviewed & are unremarkable except as noted in HPI & below Physical Exam Constitutional: + ill appearing Neck: trachea midline, no thyromegaly Respiratory: + labored breathing Cardiovascular: RRR, no murmur, no edema Gastrointestinal (Abdomen): normal bowel sounds, soft, nontender, no hepatosplenomegaly Musculoskeletal: Extremities: extremities normal to inspection Skin: no rashes, warm and dry Lymphatic: no cervical lymphadenopathy Results & Data Results & Data ([facility]) Vital Signs (Past 12 Hours) Vital Signs Temp Pulse Pulse Resp BP Pulse Ox 02/17/20 08:01 37.1 C 77 18 118/68 97 02/17/20 03:23 36.8 C 81 18 129/70 97 02/17/20 00:13 36.4 C L 81 18 114/76 93 02/16/20 23:20 91 H Laboratory Results 02/17/20 06:51 02/17/20 06:51 Pleural fluid cultures remain no growth to date. Cytology pending Diagnostic Findings Chest x-ray from today was independently reviewed and compared to prior films. Pigtail catheter is in good position. Decreasing right pleural effusion with some loculations on the lateral aspect of the right hemithorax with right midlung zone opacities again noted. PG Care Time/CCT Total # of Minutes Spent Total Time Spent with Patient: Total time spent is greater than 50% in coordination of care (as documented) at patient's floor/unit and/or counseling patient: Coding Level of Care Code 09577 Subseq Hosp Care Lvl 3 Diagnoses Pneumonia due to COVID-19 virus U07.1; J12.89 Pleural effusion, right J90 Acute respiratory failure with hypoxia J96.01 Time Spent (min) 40
[2020-02-17] MEDS: VANCOMYCIN HCL 1,000 MG in SODIUM CHLORIDE 0.9% 250 ML IV SCH (11:00)
--- NOTE | 2020-02-17 11:33 | Hospitalist Progress Note ---
Date of Service February 17, 2020 Assessment & Plan (1) Pneumonia due to COVID-19 virus: (2) Acute respiratory failure with hypoxia: (3) Sepsis: (4) Pleural effusion, right: Meets sepsis criteria: WBC 37K, heart rate tachycardic 90-low 100s; BP stable, lactic acid 1.1 On admission, Procalcitonin 4.36, CRP 52.4, ESR 64 CT chest was negative for PE but showed Right lung consolidation, loculated right pleural effusion, moderate emphysema S/P Right pigtail catheter placement by Pulmonology on 02/15/20 Pleural fluid analysis is exudative Cytology pending Blood and fluid cultures negative so far Possibly parapeumonic effusion. 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 No fevers, chills No abd pain. Has not had bowel movement. Physical Exam Constitutional: + ill appearing and + well hydrated; no acute distress Eyes: PERRL, conjunctivae normal, anicteric sclerae ENMT: external ear and nose normal, oropharynx normal Respiratory: no respiratory distress Reduced breath sounds lung bases Pigtail catheter in situ in the right Cardiovascular: Rate/Rhythm: regular rate and regular rhythm S1 S2. Gastrointestinal (Abdomen): normal bowel sounds, soft, nontender, no hepatosplenomegaly Skin: No pedal edema Neurologic: PERRL, EOMI, accommodation nl, no face palsy, no dysarthria Psychiatric: Orientation: alert and oriented x 3 Results & Data Results & Data ([facility]) Vital Signs (Past 12 Hours) Vital Signs Temp Pulse Resp BP Pulse Ox 02/17/20 08:01 37.1 C 77 18 118/68 97 02/17/20 03:23 36.8 C 81 18 129/70 97 02/17/20 00:13 36.4 C L 81 18 114/76 93 Laboratory Results Laboratory Results - last 24 hr 02/15/20 02/17/20 02/17/20 17:20 06:51 06:51 WBC 19.06 H RBC 3.98 L Hgb 12.3 Hct 37.8 MCV 95.0 MCH 30.9 MCHC 32.5 RDW Std Deviation 49.1 H RDW Coeff of Steff 14.1 Plt Count 513 H MPV 9.1 Immature Gran % (Auto) 0.2 Neut % (Auto) 85.2 Lymph % (Auto) 5.8 [place] % (Auto) 8.7 Eos % (Auto) 0.0 Baso % (Auto) 0.1 Neut # (Auto) 16.26 H Lymph # (Auto) 1.10 L [place] # (Auto) 1.65 H Eos # (Auto) 0.00 Baso # (Auto) 0.01 Immature Gran # (Auto) 0.04 H Sodium 138 Potassium 3.9 Chloride 105 Carbon Dioxide 28 Anion Gap 5.0 BUN 24 H Creatinine 0.63 Est Cr Clr Drug Dosing 78.9 Est GFR ( Amer) 106.1 Est GFR (Non-Af Amer) 91.5 BUN/Creatinine Ratio 38.4 H Glucose 102 H Calcium 8.8 Total Bilirubin 0.4 Direct Bilirubin 0.1 AST 8 L ALT 23 Alkaline Phosphatase 104 C-Reactive Protein 22.10 H Total Protein 6.0 L Albumin 2.0 L Globulin 4.0 Albumin/Globulin Ratio 0.5 L Procalcitonin Blood Type A Positive Antibody Screen NEGATIVE 02/17/20 06:51 WBC RBC Hgb Hct MCV MCH MCHC RDW Std Deviation RDW Coeff of Steff Plt Count MPV Immature Gran % (Auto) Neut % (Auto) Lymph % (Auto) [place] % (Auto) Eos % (Auto) Baso % (Auto) Neut # (Auto) Lymph # (Auto) [place] # (Auto) Eos # (Auto) Baso # (Auto) Immature Gran # (Auto) Sodium Potassium Chloride Carbon Dioxide Anion Gap BUN Creatinine Est Cr Clr Drug Dosing Est GFR ( Amer) Est GFR (Non-Af Amer) BUN/Creatinine Ratio Glucose Calcium Total Bilirubin Direct Bilirubin AST ALT Alkaline Phosphatase C-Reactive Protein Total Protein Albumin Globulin Albumin/Globulin Ratio Procalcitonin 1.00 H Blood Type Antibody Screen
[2020-02-17] MEDS: REMDESIVIR 100 MG in SODIUM CHLORIDE 0.9% 230 ML IV SCH (14:15)
[2020-02-17] MEDS: SODIUM CHLORIDE 0.9% 10ML FLUSH IV SCH (16:21)
[2020-02-17] MEDS: ENOXAPARIN INJ 40 MG/0.4 ML SYR SQ SCH (16:27)
--- NOTE | 2020-02-17 18:21 | Electrocardiogram Report ---
Test Reason : Blood Pressure : / mmHG Vent. Rate : 064 BPM Atrial Rate : 064 BPM P-R Int : 136 ms QRS Dur : 094 ms QT Int : 378 ms P-R-T Axes : 066 004 039 degrees QTc Int : 389 ms Normal sinus rhythm Normal ECG When compared with ECG of 15-FEB-2020 09:09, Vent. rate has decreased BY 35 BPM Confirmed by Sanjay Munoz ([id number]) on 02/17/2020 6:20:54 PM Referred By: REFERRED SELF Confirmed By:Sanjay Munoz
[2020-02-17] MEDS ORDERED: VANCOMYCIN TROUGH ONE ×2 (18:30→22:30)
[2020-02-17] MEDS: TOLTERODINE TARTRATE LA 4 MG CAPCR PO SCH (20:34)
[2020-02-17] MEDS: FAMOTIDINE 20 MG TAB PO SCH (20:34)
[2020-02-18] MEDS: DORNASE ALFA 5 ML in SYRINGE 25 ML IPL SCH ×2 (00:41→13:13)
[2020-02-18] MEDS: VANCOMYCIN HCL 1,000 MG in SODIUM CHLORIDE 0.9% 250 ML IV SCH (00:46)
[2020-02-18] MEDS: PIPERACILLIN/TAZOBACTAM 3.375 GM in DEXTROSE 5% 100 ML IV SCH ×3 (02:54→17:58)
[2020-02-18 06:39] LABS: Basophils # (auto) 0.02 K/uL (0-0.2); Basophils % (auto) 0.1 %; Eosinophils # (auto) 0.03 K/uL (0-0.5); Eosinophils % (auto) 0.2 %; Hematocrit (blood only) 37.1 % (37-47); Hemoglobin 11.9 g/dL (12.0-16.0); Immature Granulocytes # (auto) 0.09 K/uL (0.00-0.02); Immature Granulocytes % (auto) 0.7 %; Lymphocytes # (auto) 1.72 K/uL (1.2-3.4); Lymphocytes % (auto) 12.6 %; Mean Corpuscular Hemoglobin 30.3 pg (25-34); Mean Corpuscular Hgb Conc 32.1 g/dL (32-36); Mean Corpuscular Volume 94.4 fL (80-100); Mean Platelet Volume 8.7 fL (7.4-10.4); Monocytes # (auto) 1.97 K/uL (0.11-0.59); Monocytes % (auto) 14.4 %; Neutrophils # (auto) 9.86 K/uL (1.4-6.5); Platelet Count 458 K/uL (130-400); RDW Standard Deviation 48.5 fL (36.4-46.3); Red Blood Count 3.93 M/uL (4.2-5.4); White Blood Count 13.69 K/uL (4.8-10.8)
[2020-02-18 07:14] LABS: Alanine Aminotransferase 17 U/L (12-78); Albumin Level 1.8 gm/dl (3.4-5.0); Aspartate Aminotransferase 10 U/L (15-37); BUN Creatinine Ratio 37.2 (10-20); Bilirubin Direct < 0.1 mg/dl (0-0.2); Blood Urea Nitrogen 22 mg/dl (7-18); Calcium 8.4 mg/dl (8.5-10.1); Carbon Dioxide 33 mmol/L (21-32); Chloride 104 mmol/L (98-107); Creatinine Clr Calc Pharmacy 82.8 ml/min; Est GFR (African American) 107.8; Glucose 93 mg/dl (70-99); Potassium 3.7 mmol/L (3.5-5.1); Sodium 139 mmol/L (136-145)
[2020-02-18 07:17] LABS: Albumin Globulin Ratio 0.5 (0.9-2); Alkaline Phosphatase 78 U/L (45-117); Bilirubin,Total 0.4 mg/dl (0.2-1); Globulin 3.4 gm/dl (2.5-4.0); Total Protein 5.2 gm/dl (6.4-8.2)
[2020-02-18] MEDS: FAMOTIDINE 20 MG TAB PO SCH ×2 (07:52→20:59)
[2020-02-18] MEDS: DEXAMETHASONE SOD PHOSPHATE 6 MG in SYRINGE 0 ML IV SCH (07:52)
[2020-02-18] MEDS: POLYETHYLENE (MIRALAX) 17 GM PACK PO SCH (07:52)
[2020-02-18] MEDS ORDERED: VANCOMYCIN HCL 1,000 MG in SODIUM CHLORIDE 0.9% 250 ML IV SCH (08:00)
[2020-02-18] MEDS: HYDROmorphone INJ 0.5 MG/0.5 ML SYR IV PRN (08:07)
--- NOTE | 2020-02-18 08:07 | XRay Report ---
XR chest 1V not portable HISTORY: 69 years-old Female pleural effusion follow-up study in a patient with pleural effusions. C OVID Positive. COMPARISON: Chest radiograph 02/17/2020 TECHNIQUE: Portable AP view of the chest FINDINGS: Cardiomediastinal and hilar silhouettes are unchanged. Emphysema. Trace left and small right pleural effusions with stable positioning of the right-sided pleural drainage catheter. The right pleural eff usion has slightly decreased in size. Mild persistent bibasilar opacities. There is mildly improved a eration of the right midlung. Degenerative changes of the shoulders and spine. Chronic widening of th e right AC joint. IMPRESSION: 1. Stable positioning of the right lung base pleural drainage catheter with slightly decreased size o f the small right pleural effusion. 2. Mildly improved aeration of the lateral right midlung. 3. No pneumothorax. ACT 112: Negative or not required by law. The above report was generated using voice recognition software. It may contain grammatical, syntax o r spelling errors. Electronically signed by: Marcin Garzon M.D. 02/18/2020 8:06 AM
--- NOTE | 2020-02-18 09:58 | Pulmonology Progress Note ---
Date of Service February 18, 2020 Assessment & Plan (1) Pneumonia due to COVID-19 virus: (2) Pleural effusion, right: (3) Acute respiratory failure with hypoxia: Impression: 69-year-old female with history of tobacco abuse and COPD admitted with COVID-19 pneumonia and what appears to be a complicated right pleural effusion, possibly parapneumonic. CXR improving with drainage but not resolved. Recommendations: 1. COVID-19 pneumonia: Patient has been initiated on remdesivir and dexa methasone per protocols. Continue for now. 2. Hypoxemic respiratory failure: Continue supplemental oxygen titrated to keep saturations at or above 88%. 3. Complex pleural effusion: Exudate, likely parapneumonic. Her procalcitonin has trended down from 4.36-1.0. She has had approximately 940 mL of output in the last 24 hours. Continue mist protocol and follow chest x-ray. Hopefully this will be effective in alleviating the loculations. Otherwise may require more aggressive intrapleural procedures including upsizing of chest tube or potentially video-assisted thoracoscopic decortication. Continue Zosyn for now. Cultures have been negative thus far. She will likely need 4 to 6 weeks of antibiotics. Cytology from the pleural fluid is pending. The above recommendations and plan were discussed with the patient. Questions were answered to the best of my ability. She expressed understanding and is in agreement with the plan as outlined. Admission and Anticipated Discharge Date Admission Date: February 15, 2020 Subjective Patient has some mild pain around the chest tube insertion site. She denies any fevers, coughs, chills or night sweats. Appetite is mildly diminished. She notes that she was ambulatory at home and independent. She does not require oxygen at home. She is currently on 3 L of oxygen and saturating 96%. Review of Systems Review of Systems: All systems reviewed & are unremarkable except as noted in HPI & below Physical Exam Constitutional: well developed and + thin; no acute distress Eyes: PERRL, conjunctivae normal, anicteric sclerae ENMT: external ear and nose normal, oropharynx normal Neck: trachea midline, no thyromegaly Respiratory: Diminished lung sounds at the right base. Otherwise clear. Cardiovascular: RRR, no murmur, no edema Gastrointestinal (Abdomen): normal bowel sounds, soft, nontender, no hepatosplenomegaly Musculoskeletal: no cyanosis or clubbing, extremities motor strength 5/5 Extremities: extremities normal to inspection Skin: no rashes, warm and dry Neurologic: PERRL, EOMI, accommodation nl, no face palsy, no dysarthria Lymphatic: no cervical lymphadenopathy Results & Data Results & Data ([facility]) Vital Signs (Past 12 Hours) Vital Signs Temp Pulse Resp BP Pulse Ox 02/18/20 08:30 98.6 F 83 18 113/65 96 02/18/20 03:59 97.7 F 93 H 16 129/68 92 02/18/20 00:16 98.4 F 70 16 115/66 97 I reviewed the vital signs, labs and imaging PG Care Time/CCT Total # of Minutes Spent Total Time Spent with Patient: Total time spent is greater than 50% in coordination of care (as documented) at patient's floor/unit and/or counseling patient: Coding Level of Care Code 23800 Subseq Hosp Care Lvl 2 Diagnoses Pneumonia due to COVID-19 virus U07.1; J12.89 Pleural effusion, right J90 Acute respiratory failure with hypoxia J96.01
[2020-02-18] MEDS: traMADol HCL 50 MG TABLET PO PRN ×2 (10:20→15:12)
[2020-02-18] MEDS: ONDANSETRON INJ 2 MG/ML 2 ML VIAL IV PRN (10:20)
[2020-02-18] MEDS ORDERED: VANCOMYCIN TROUGH ONE (10:59)
--- NOTE | 2020-02-18 11:38 | Pharmacy Report ---
Pharmacy Abx Dose Short Note - Date of Service February 18, 2020 - Assessment & Plan Assessment 69 year old F receiving vancomycin/zosyn for treatment of pulmonary infection- complex pleural effusion, WBC trending down, afebrile. Preliminary pleural effusion cultures currently negative. Continues on remdesivir, dexamethasone for COVID-19 infection. Day # 4 of antimicrobial therapy. Per pulmonology note- likely needs 4-6 weeks of abx. Plan to continue zosyn but vancomycin still active. Will check with provider if to continue. Plan Vancomycin * Trough level of 9.7 mcg/mL is lower than predicted with AUC dosing, although trough was drawn late and true trough likely slightly higher. Will adjust frequency based on this. * Change to 1000 mg IV every 10 hours * Goal trough level 15-20 mcg/mL * Trough will be ordered for 02/18 if continued. Pharmacy will continue to follow and will adjust dose/frequency as necessary. Thank you.
[2020-02-18] MEDS: ALTEPLASE, RECOMBINANT 10 MG in SYRINGE 50 ML IPL SCH (12:16)
[2020-02-18] MEDS: REMDESIVIR 100 MG in SODIUM CHLORIDE 0.9% 230 ML IV SCH (13:22)
--- NOTE | 2020-02-18 13:52 | Hospitalist Progress Note ---
Date of Service February 18, 2020 Assessment & Plan (1) Pneumonia due to COVID-19 virus: (2) Acute respiratory failure with hypoxia: (3) Sepsis: (4) Pleural effusion, right: Meets sepsis criteria: WBC 37K, heart rate tachycardic 90-low 100s; BP stable, lactic acid 1.1 On admission, Procalcitonin 4.36, CRP 52.4, ESR 64 CT chest was negative for PE but showed Right lung consolidation, loculated right pleural effusion, moderate emphysema S/P Right pigtail catheter placement by Pulmonology on 02/15/20 Pleural fluid analysis is exudative Cytology pending Blood and fluid cultures negative so far Possibly parapeumonic effusion. Procalcitonin and CRP trending down from 4.36 to 1 and 52.4 to 22.1 respectively Chest tube drained 940 cc in past 24h Continue iv dexamethasone, remdesivir day 4 Got convalescent plasma ID recommendations appreciated Continue Zosyn. Vancomycin discontinued Patient requested to discontinue IV opioid. IV Dilaudid discontinued. Continue tramadol as needed and Tylenol as needed Continue oxygen supplementation and wean as tolerated [employer] Carriage Operator recommendations appreciated regarding management of chest tube (5) DVT prophylaxis: -SQ Lovenox Admission and Anticipated Discharge Date Admission Date: February 15, 2020 Subjective Patient seen and examined Growths discomfort at chest tube site worse with movement. Still has cough and shortness of breath No fevers or chills No nausea this morning. No vomiting. Reports some abdominal discomfort which she reported was burning sensation Reports anorexia. Has nausea bowel movements but has been passing flatus. Denied dysuria, urgency, frequency Physical Exam Constitutional: + ill appearing and + well hydrated; no acute distress Eyes: PERRL, conjunctivae normal, anicteric sclerae ENMT: external ear and nose normal, oropharynx normal Respiratory: no respiratory distress Reduced breath sounds on the right lower lung zone, pigtail catheter in situ On nasal cannula 2 L/min Cardiovascular: Rate/Rhythm: regular rate and regular rhythm S1-S2 Gastrointestinal (Abdomen): normal bowel sounds, soft, nontender, no hepatosplenomegaly Musculoskeletal: No pedal edema Neurologic: PERRL, EOMI, accommodation nl, no face palsy, no dysarthria Psychiatric: Orientation: alert and oriented x 3 Results & Data Results & Data ([facility]) Vital Signs (Past 12 Hours) Vital Signs Temp Pulse Resp BP Pulse Ox 02/18/20 12:09 37.3 C 80 18 119/72 95 02/18/20 08:30 37.0 C 83 18 113/65 96 02/18/20 03:59 36.5 C 93 H 16 129/68 92 Laboratory Results Laboratory Results - last 24 hr 02/17/20 02/18/20 02/18/20 22:47 05:49 05:49 WBC 13.69 H RBC 3.93 L Hgb 11.9 L Hct 37.1 MCV 94.4 MCH 30.3 MCHC 32.1 RDW Std Deviation 48.5 H RDW Coeff of Steff 14.0 Plt Count 458 H MPV 8.7 Immature Gran % (Auto) 0.7 Neut % (Auto) 72.0 Lymph % (Auto) 12.6 [place] % (Auto) 14.4 Eos % (Auto) 0.2 Baso % (Auto) 0.1 Neut # (Auto) 9.86 H Lymph # (Auto) 1.72 [place] # (Auto) 1.97 H Eos # (Auto) 0.03 Baso # (Auto) 0.02 Immature Gran # (Auto) 0.09 H Sodium 139 Potassium 3.7 Chloride 104 Carbon Dioxide 33 H Anion Gap 2.0 L BUN 22 H Creatinine 0.60 Est Cr Clr Drug Dosing 82.8 Est GFR ( Amer) 107.8 Est GFR (Non-Af Amer) 93.0 BUN/Creatinine Ratio 37.2 H Glucose 93 Calcium 8.4 L Total Bilirubin 0.4 Direct Bilirubin < 0.1 AST 10 L ALT 17 Alkaline Phosphatase 78 Total Protein 5.2 L Albumin 1.8 L Globulin 3.4 Albumin/Globulin Ratio 0.5 L Vancomycin Trough 9.7
[2020-02-18] MEDS: SODIUM CHLORIDE 0.9% 10ML FLUSH IV SCH (14:38)
[2020-02-18] MEDS: ACETAMINOPHEN 325 MG TAB PO PRN ×2 (17:52→22:28)
[2020-02-18] MEDS: ENOXAPARIN INJ 40 MG/0.4 ML SYR SQ SCH (17:52)
[2020-02-18] MEDS: TOLTERODINE TARTRATE LA 4 MG CAPCR PO SCH (20:58)
[2020-02-19] MEDS: ALTEPLASE, RECOMBINANT 10 MG in SYRINGE 50 ML IPL SCH (00:29)
[2020-02-19] MEDS: PIPERACILLIN/TAZOBACTAM 3.375 GM in DEXTROSE 5% 100 ML IV SCH ×3 (01:26→17:37)
[2020-02-19] MEDS: DORNASE ALFA 5 ML in SYRINGE 25 ML IPL SCH (01:29)
[2020-02-19] MEDS: ACETAMINOPHEN 325 MG TAB PO PRN ×4 (02:37→21:01)
[2020-02-19 04:54] LABS: Basophils # (auto) 0.02 K/uL (0-0.2); Basophils % (auto) 0.1 %; Eosinophils # (auto) 0.12 K/uL (0-0.5); Eosinophils % (auto) 0.9 %; Hematocrit (blood only) 37.6 % (37-47); Hemoglobin 12.2 g/dL (12.0-16.0); Immature Granulocytes # (auto) 0.24 K/uL (0.00-0.02); Immature Granulocytes % (auto) 1.8 %; Lymphocytes # (auto) 1.73 K/uL (1.2-3.4); Lymphocytes % (auto) 12.9 %; Mean Corpuscular Hemoglobin 30.5 pg (25-34); Mean Corpuscular Hgb Conc 32.4 g/dL (32-36); Mean Platelet Volume 8.7 fL (7.4-10.4); Monocytes # (auto) 2.39 K/uL (0.11-0.59); Monocytes % (auto) 17.8 %; Neutrophils # (auto) 8.95 K/uL (1.4-6.5); Neutrophils % (auto) 66.5 %; Platelet Count 451 K/uL (130-400); RDW Coefficient of Variation 13.9 % (11.5-14.5); RDW Standard Deviation 47.9 fL (36.4-46.3); White Blood Count 13.45 K/uL (4.8-10.8)
[2020-02-19 06:01] LABS: Alanine Aminotransferase 23 U/L (12-78); Albumin Globulin Ratio 0.6 (0.9-2); Albumin Level 1.9 gm/dl (3.4-5.0); Alkaline Phosphatase 72 U/L (45-117); Aspartate Aminotransferase 23 U/L (15-37); BUN Creatinine Ratio 18.9 (10-20); Bilirubin Direct < 0.1 mg/dl (0-0.2); Bilirubin,Total 0.3 mg/dl (0.2-1); Blood Urea Nitrogen 32 mg/dl (7-18); Carbon Dioxide 32 mmol/L (21-32); Chloride 103 mmol/L (98-107); Creatinine Clr Calc Pharmacy 29.4 ml/min; Est GFR (African American) 35.3; Est GFR (Non-African American) 30.5; Ferritin 221.8 ng/ml (8-388); Globulin 3.2 gm/dl (2.5-4.0); Glucose 96 mg/dl (70-99); Potassium 3.7 mmol/L (3.5-5.1); Sodium 137 mmol/L (136-145); Total Protein 5.1 gm/dl (6.4-8.2)
[2020-02-19] MEDS: FAMOTIDINE 20 MG TAB PO SCH ×2 (07:28→20:46)
[2020-02-19] MEDS: POLYETHYLENE (MIRALAX) 17 GM PACK PO SCH (07:28)
[2020-02-19] MEDS: DEXAMETHASONE SOD PHOSPHATE 6 MG in SYRINGE 0 ML IV SCH (07:28)
--- NOTE | 2020-02-19 07:56 | CT Scan Report ---
CT chest wo con CLINICAL HISTORY: follow up loculated effusion drainage COMPARISON STUDY: 02/15/2020 CT DOSE: 306.01 mGycm TECHNIQUE: CT of the thorax was performed from the thoracic inlet to the lung bases. Images are revi ewed in the axial, sagittal, and coronal planes. IV contrast was not administered for this examinatio n. A dose lowering technique was utilized adhering to the principles of ALARA. FINDINGS: Thyroid: Imaged portions of the thyroid gland are normal in appearance. Thoracic aorta: The thoracic aorta is normal in course and caliber, noting standard 3 vessel arch rosalio jenise. Heart: There are minor coronary artery calcifications. There is trace pericardial fluid. Lungs and pleural spaces: There has been interval placement of a right pleural pigtail catheter. Ther e is a small amount of subcutaneous emphysema on the right. The right pleural fluid collection has di minished in size. There is a small amount of fluid loculated within the right major fissure. There is a trace left pleural effusion. There is a small right-sided loculated pneumothorax. There are depend ent basilar opacities likely representing compressive atelectasis. There is pulmonary emphysema. Mediastinum: There is a minimally enlarged subcarinal lymph node measuring 11 mm in short axis. Aleshia: There is no evidence of pathologic hilar adenopathy given the limitations of a noncontrast stud y. Axilla: There is no evidence of pathologic axillary lymphadenopathy Upper abdomen: Partially visualized upper abdominal viscera is within normal limits. Skeletal structures: There are no lytic or blastic osseous lesions. IMPRESSION: 1. Interval drainage of a right pleural effusion with a basilar pigtail catheter 2. Marked reduction in the amount of right pleural fluid. Small right-sided hydropneumothorax 3. Trace left pleural effusion 4. Basilar airspace opacities likely atelectatic 5. Emphysema 6. Minimally enlarged subcarinal lymph node ACT 112: Negative or not required by law. Electronically signed by: Juan Vasquez M.D. 02/19/2020 7:55 AM
--- NOTE | 2020-02-19 08:12 | XRay Report ---
XR chest 1V portable CLINICAL HISTORY: pleural effusion COMPARISON STUDY: 02/18/2020 FINDINGS: A right basilar pigtail pleural catheter is again visualized. There is a small right pleura l effusion and trace left pleural effusion. Right basilar airspace opacities, likely represent compre ssive atelectasis. 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 There is a trace right basilar pneumothorax.[ IMPRESSION: 1. Trace right basilar pneumothorax 2. Right basilar opacities likely representing compressive atelectasis 3. Stable small right pleural effusion and trace left pleural effusion 4. Indwelling right basilar pigtail pleural catheter 5. Ovoid opacity within the right midlung zone, consistent with intrafissural fluid ACT 112: Negative or not required by law. Electronically signed by: Juan Vasquez M.D. 02/19/2020 8:11 AM
--- NOTE | 2020-02-19 13:02 | Hospitalist Progress Note ---
Date of Service February 19, 2020 Assessment & Plan (1) Pneumonia due to COVID-19 virus: (2) Acute respiratory failure with hypoxia: (3) Sepsis: (4) Pleural effusion, right: Meets sepsis criteria: WBC 37K, heart rate tachycardic 90-low 100s; BP stable, lactic acid 1.1 On admission, Procalcitonin 4.36, CRP 52.4, ESR 64 CT chest was negative for PE but showed Right lung consolidation, loculated right pleural effusion, moderate emphysema S/P Right pigtail catheter placement by Pulmonology on 02/15/20 Pleural fluid analysis is exudative Cytology negative for malignancy Blood and fluid cultures negative so far Possibly parapeumonic effusion. Procalcitonin trending down from 4.36-->1-->0.44 CRP trending down 52.4--> 22.1 -->11.1 Leukocytosis improving from 37K on admission to 13K today Chest tube drained 450cc in past 24h Continue iv dexamethasone day 5 Will complete remdesivir day 5 today Got convalescent plasma ID recommendations appreciated Continue Zosyn. Vancomycin has been discontinued yesterday Pain controlled with tylenol Continue oxygen supplementation and wean as tolerated [employer] on board. Recommendations appreciated and also aiding with management of chest tube (5) BRII (acute kidney injury): BRII today Cr increased from 0.6 yesterday to 1.69 today Possibly from poor oral intake Started on IVF Monitor Cr Avoid nephrotoxins Monitor renal function and adjust meds as appropriate (6) DVT prophylaxis: -SQ Lovenox Admission and Anticipated Discharge Date Admission Date: February 15, 2020 Subjective Patient seen and examined Patient reports feeling slightly better today in terms of coughing and weakness She also stated that chest pain is well controlled Patient has poor appetite Reports nausea has resolved for now Denies abdominal pain. Yet to move her bowels Physical Exam Constitutional: + ill appearing and + well hydrated; no acute distress Eyes: PERRL, conjunctivae normal, anicteric sclerae ENMT: external ear and nose normal, oropharynx normal Respiratory: no respiratory distress Nasal cannula 2 L/min Reduced air entry on right lower lung zone posteriorly Chest tube on right chest draining Cardiovascular: Rate/Rhythm: regular rate and regular rhythm S1 S2 Gastrointestinal (Abdomen): normal bowel sounds, soft, nontender, no hepatosplenomegaly Neurologic: PERRL, EOMI, accommodation nl, no face palsy, no dysarthria Psychiatric: Orientation: alert and oriented x 3 Results & Data Results & Data ([facility]) Vital Signs (Past 12 Hours) Vital Signs Temp Pulse Pulse Resp BP Pulse Ox 02/19/20 10:43 36.8 C 72 16 106/61 96 02/19/20 08:19 36.7 C 76 18 117/78 98 02/19/20 04:52 37.0 C 73 19 116/74 96 Laboratory Results Laboratory Results - last 24 hr 02/18/20 02/19/20 02/19/20 Unknown 04:33 04:33 WBC 13.45 H RBC 4.00 L Hgb 12.2 Hct 37.6 MCV 94.0 MCH 30.5 MCHC 32.4 RDW Std Deviation 47.9 H RDW Coeff of Steff 13.9 Plt Count 451 H MPV 8.7 Immature Gran % (Auto) 1.8 Neut % (Auto) 66.5 Lymph % (Auto) 12.9 [place] % (Auto) 17.8 Eos % (Auto) 0.9 Baso % (Auto) 0.1 Neut # (Auto) 8.95 H Lymph # (Auto) 1.73 [place] # (Auto) 2.39 H Eos # (Auto) 0.12 Baso # (Auto) 0.02 Immature Gran # (Auto) 0.24 H Sodium 137 Potassium 3.7 Chloride 103 Carbon Dioxide 32 Anion Gap 2.0 L BUN 32 H Creatinine 1.69 H D Est Cr Clr Drug Dosing 29.4 Est GFR ( Amer) 35.3 Est GFR (Non-Af Amer) 30.5 BUN/Creatinine Ratio 18.9 Glucose 96 Calcium 8.0 L Ferritin 221.8 Total Bilirubin 0.3 Direct Bilirubin < 0.1 AST 23 ALT 23 Alkaline Phosphatase 72 C-Reactive Protein 11.10 H Total Protein 5.1 L Albumin 1.9 L Globulin 3.2 Albumin/Globulin Ratio 0.6 L Procalcitonin Nasal Screen MRSA (PCR) Negative 02/19/20 04:33 WBC RBC Hgb Hct MCV MCH MCHC RDW Std Deviation RDW Coeff of Steff Plt Count MPV Immature Gran % (Auto) Neut % (Auto) Lymph % (Auto) [place] % (Auto) Eos % (Auto) Baso % (Auto) Neut # (Auto) Lymph # (Auto) [place] # (Auto) Eos # (Auto) Baso # (Auto) Immature Gran # (Auto) Sodium Potassium Chloride Carbon Dioxide Anion Gap BUN Creatinine Est Cr Clr Drug Dosing Est GFR ( Amer) Est GFR (Non-Af Amer) BUN/Creatinine Ratio Glucose Calcium Ferritin Total Bilirubin Direct Bilirubin AST ALT Alkaline Phosphatase C-Reactive Protein Total Protein Albumin Globulin Albumin/Globulin Ratio Procalcitonin 0.44 Nasal Screen MRSA (PCR)
--- NOTE | 2020-02-19 13:58 | Pulmonology Progress Note ---
Date of Service February 19, 2020 Assessment & Plan (1) Pneumonia due to COVID-19 virus: (2) Pleural effusion, right: (3) Acute respiratory failure with hypoxia: Impression: 69-year-old female with history of tobacco abuse and COPD admitted with COVID-19 pneumonia and what appears to be a complicated right pleural effusion, possibly parapneumonic. CXR improving with drainage but not resolved. Recommendations: 1. COVID-19 pneumonia: Patient has been initiated on remdesivir and dexam ethasone per protocols. Continue for now. 2. Hypoxemic respiratory failure: Continue supplemental oxygen titrated to keep saturations at or above 88%. 3. Complex pleural effusion: Exudate, likely parapneumonic. Her procalcitonin level is almost normal. She has completed the Mist 2 protocol. She is continuing to have drainage from the chest tube site. I will reevaluate for removal tomorrow. Repeat CT chest today demonstrates a small right-sided hydropneumothorax. Cytology from the pleural fluid is negative for malignancy. Continue Zosyn for now. Cultures have been negative thus far. She will likely need 4 to 6 weeks of antibiotics. Her MRSA screen was negative. Vancomycin was discontinued. Admission and Anticipated Discharge Date Admission Date: February 15, 2020 Subjective Patient feels roughly the same as she did yesterday. She has mild pain in her right chest. Denies any fevers or chills. Appetite is poor. Review of Systems Review of Systems: All systems reviewed & are unremarkable except as noted in HPI & below Physical Exam Constitutional: well developed, + ill appearing and + thin; no acute distress Eyes: PERRL, conjunctivae normal, anicteric sclerae ENMT: external ear and nose normal, oropharynx normal Neck: trachea midline, no thyromegaly Respiratory: Diminished lung sounds at the right base. Otherwise clear. Cardiovascular: RRR, no murmur, no edema Gastrointestinal (Abdomen): normal bowel sounds, soft, nontender, no hepatosplenomegaly Musculoskeletal: no cyanosis or clubbing, extremities motor strength 5/5 Extremities: extremities normal to inspection Skin: no rashes, warm and dry Neurologic: PERRL, EOMI, accommodation nl, no face palsy, no dysarthria Lymphatic: no cervical lymphadenopathy Results & Data Results & Data ([facility]) Vital Signs (Past 12 Hours) Vital Signs Temp Pulse Pulse Resp BP Pulse Ox 02/19/20 10:43 98.2 F 72 16 106/61 96 02/19/20 08:19 98.1 F 76 18 117/78 98 02/19/20 04:52 98.6 F 73 19 116/74 96 I reviewed the vital signs, labs and imaging PG Care Time/CCT Total # of Minutes Spent Total Time Spent with Patient: Total time spent is greater than 50% in coordina tion of care (as documented) at patient's floor/unit and/or counseling patient: Coding Level of Care Code 24745 Subseq Hosp Care Lvl 2 Diagnoses Pneumonia due to COVID-19 virus U07.1; J12.89 Pleural effusion, right J90 Acute respiratory failure with hypoxia J96.01
[2020-02-19] MEDS: SODIUM CHLORIDE 0.9% 10ML FLUSH IV SCH (15:16)
[2020-02-19] MEDS: REMDESIVIR 100 MG in SODIUM CHLORIDE 0.9% 230 ML IV SCH (15:16)
[2020-02-19] MEDS: ENOXAPARIN INJ 40 MG/0.4 ML SYR SQ SCH (16:21)
[2020-02-19] MEDS: LACTATED RINGER'S 1,000 ML IV SCH (16:21)
[2020-02-19 18:22] LABS: Calcium 8.3 mg/dl (8.5-10.1); Creatinine Clr Calc Pharmacy 24.6 ml/min; Est GFR (African American) 28.5; Est GFR (Non-African American) 24.5; Potassium 3.8 mmol/L (3.5-5.1)
[2020-02-19] MEDS: TOLTERODINE TARTRATE LA 4 MG CAPCR PO SCH (20:46)
[2020-02-20] MEDS: ACETAMINOPHEN 325 MG TAB PO PRN ×3 (01:19→21:16)
[2020-02-20] MEDS: PIPERACILLIN/TAZOBACTAM 3.375 GM in DEXTROSE 5% 100 ML IV SCH ×3 (03:35→18:42)
[2020-02-20] MEDS: LACTATED RINGER'S 1,000 ML IV SCH ×4 (03:36→23:51)
[2020-02-20] MEDS: FAMOTIDINE 20 MG TAB PO SCH ×2 (07:55→21:16)
[2020-02-20] MEDS: POLYETHYLENE (MIRALAX) 17 GM PACK PO SCH (07:55)
[2020-02-20 08:20] LABS: Hemoglobin 12.1 g/dL (12.0-16.0); Mean Corpuscular Hemoglobin 30.6 pg (25-34); Mean Corpuscular Hgb Conc 32.7 g/dL (32-36); Mean Corpuscular Volume 93.7 fL (80-100); Mean Platelet Volume 8.5 fL (7.4-10.4); Platelet Count 520 K/uL (130-400); RDW Coefficient of Variation 13.8 % (11.5-14.5); RDW Standard Deviation 47.8 fL (36.4-46.3); Red Blood Count 3.95 M/uL (4.2-5.4); White Blood Count 17.11 K/uL (4.8-10.8)
[2020-02-20 08:51] LABS: Albumin Level 1.9 gm/dl (3.4-5.0); BUN Creatinine Ratio 14.4 (10-20); Calcium 8.4 mg/dl (8.5-10.1); Creatinine Clr Calc Pharmacy 23.3 ml/min; Est GFR (African American) 26.7; Potassium 3.2 mmol/L (3.5-5.1)
[2020-02-20 08:56] LABS: Albumin Globulin Ratio 0.6 (0.9-2); Bilirubin,Total 0.3 mg/dl (0.2-1); Globulin 3.3 gm/dl (2.5-4.0); Total Protein 5.2 gm/dl (6.4-8.2)
[2020-02-20] MEDS ORDERED: POTASSIUM CHLORIDE CRTAB 20 MEQ TABCR PO ONE (09:28)
[2020-02-20] MEDS ORDERED: MoRPHine SULFATE 2 MG/ML CARP IV PRN (10:55)
--- NOTE | 2020-02-20 11:07 | Pulmonology Progress Note ---
Date of Service February 20, 2020 Assessment & Plan (1) Pneumonia due to COVID-19 virus: (2) Pleural effusion, right: (3) Acute respiratory failure with hypoxia: Impression: 69-year-old female with history of tobacco abuse and COPD admitted with COVID-19 pneumonia and what appears to be a complicated right pleural effusion, possibly parapneumonic. Recommendations: 1. COVID-19 pneumonia: Patient completed remdesivir. Recommend continuing Decadron for 10 days total. 2. Hypoxemic respiratory failure: Continue supplemental oxygen titrated to keep saturations at or above 88%. 3. Complex pleural effusion: Exudate, likely parapneumonic. Her procalcitonin has essentially normalized. She has completed the Mist [address] chest yesterday demonstrates a small right-sided hydropneumothorax. Cytology from the pleural fluid is negative for malignancy. I removed the chest tube at bedside today, 02/20/2020. I would recommend continuing Zosyn while inpatient and then she can likely be transitioned to oral antibiotics for 4 weeks. She will need a repeat CT chest in 4 to 6 weeks to follow-up on the pleural effusion. Etiology of the effusion remains unclear. If there is recurrence, she would likely benefit from repeat drainage and possible pleural biopsy. Cultures have been negative thus far. Her MRSA screen was negative. I will repeat a chest x-ray tomorrow morning. Admission and Anticipated Discharge Date Admission Date: February 15, 2020 Subjective Patient reports no significant changes from yesterday. She is eager to have the chest tube out. I remove the chest tube at bedside with the nurses assistance. She had some pain after removal of the chest tube. We are giving her Ultram. She denies any fevers or chills. She is requiring 2 L of oxygen via nasal cannula. Review of Systems Review of Systems: All systems reviewed & are unremarkable except as noted in HPI & below Physical Exam Constitutional: well developed, + ill appearing and + thin; no acute distress Eyes: PERRL, conjunctivae normal, anicteric sclerae ENMT: external ear and nose normal, oropharynx normal Neck: trachea midline, no thyromegaly Respiratory: Diminished lung sounds at the right base. Otherwise clear. Cardiovascular: RRR, no murmur, no edema Gastrointestinal (Abdomen): normal bowel sounds, soft, nontender, no hepatosplenomegaly Musculoskeletal: no cyanosis or clubbing, extremities motor strength 5/5 Extremities: extremities normal to inspection Skin: no rashes, warm and dry Neurologic: PERRL, EOMI, accommodation nl, no face palsy, no dysarthria Lymphatic: no cervical lymphadenopathy Results & Data Results & Data ([facility]) Vital Signs (Past 12 Hours) Vital Signs Temp Pulse Resp BP Pulse Ox 02/20/20 08:46 97.7 F 69 18 104/62 96 02/20/20 04:08 98.8 F 83 18 107/62 92 02/20/20 00:03 98.8 F 77 18 106/63 93 I reviewed the vital signs, labs and imaging PG Care Time/CCT Total # of Minutes Spent Total Time Spent with Patient: Total time spent is greater than 50% in coordination of care (as documented) at patient's floor/unit and/or counseling patient: Coding Level of Care Code 25008 Subseq Hosp Care Lvl 3 Diagnoses Pneumonia due to COVID-19 virus U07.1; J12.89 Pleural effusion, right J90 Acute respiratory failure with hypoxia J96.01
[2020-02-20] MEDS: traMADol HCL 50 MG TABLET PO PRN (11:29)
[2020-02-20] MEDS: ONDANSETRON INJ 2 MG/ML 2 ML VIAL IV PRN (11:30)
[2020-02-20] MEDS: DEXAMETHASONE SOD PHOSPHATE 6 MG in SYRINGE 0 ML IV SCH (11:30)
[2020-02-20] MEDS: HEPARIN SOD 5,000 UNIT/0.5 ML VIAL SQ SCH ×2 (15:11→21:16)
[2020-02-20 15:45] LABS: Lyme Ab IgG w/WB Rflx Negative (Negative); Lyme Ab IgM w/WB Rflx Negative (Negative)
--- NOTE | 2020-02-20 19:00 | Nephrology Consultation ---
Date of Consultation February 20, 2020 Assessment & Plan (1) BRII (acute kidney injury): Baseline creatinine 1.1. Is at baseline on presentation and creatinine rapidly dipped to the abhijit 0.6 on February 17. Numbers increased to 1.7 on February 18 and continued up trend to 2.1 today. Nonoliguric stage II acute kidney injury likely multifactorial in the setting of severe illness, nausea vom iting and NSAID use prior to admission, obligate at admission IV contrast, plus or minus vancomycin and Zosyn dosing and/or remdesivir. Unclear if this is prerenal or ATN. Chemistries and volume status currently acceptable though mild hypokalemia noted. She already had blood and protein in her urine not surprisingly on admission given several days of heavy NSAID use -daily bmp -Continue lactated Ringer's which she appears to be tolerating -Repeat urinalysis ordered -Avoid NSAIDs or unless lifesaving IV contrast. No further vancomycin or remdesivir will be given/courses/indications complete -no acute indication for dialysis and unlikely to need it Present on Admission?: Yes (2) Acute respiratory failure with hypoxia: No oxygen needs at baseline -Threshold for x-ray rechecks if oxygen needs change Present on Admission?: Yes (3) Pneumonia due to COVID-19 virus: No longer in isolation for Covid; status post course of remdesivir and currently tapering high-dose steroids; remains on Zosyn for loculated pleural /parapneumonic effusion Present on Admission?: Yes History of Present Illness Reason for Consultation: Acute renal failure Requesting Physician: Dr. Belcher Attending Physician: Rudy Belcher MD History of Present Illness 69-year-old female whom I am asked to see for acute renal failure she was admitted here February 14 with Covid pneumonia and right pleural effusion. Past medical history includes active tobacco abuse, overactive bladder and remote history of NSAID induced bleed. She developed a cough approximately January 31. Her symptoms continued to worsen and on February 12 she sought care from her PCP who tested her for C 19 which was positive, gave her oral antibiotic and recommended [id number] NSAID. Patient began to have vomiting on February 13 and and was hardly able to eat anything in this timeframe or to keep medications down. She also became progressively short of breath with severe pleuritic chest pain posterior to her right breast. She has not had a fever at any time. Even worsening shortness of breath, she presented to the ER on was admitted for COVID-19 pneumonia quiring 3 L of oxygen to maintain her sats as well comPlex right-sided pleural effusion. Her baseline creatinine is 0.9 as of August of this year. On Presentation she was at 1.2 and dropped subsequently to 0.65 February 17. Then abruptly jumped up to 1.7 on February 18 and was continued upward trend to 2.1 today. No oliguria; no labile blood pressures. CT chest at admission showed no pulmonary embolus; CT abdomen pelvis was also done with IV contrast and showed no acute or notable chronic intra-abdominal f indings. The patient was started on dexamethasone, remdesivir, Levaquin, vancomycin and Zosyn. She completed 5 doses of remdesivir on February 18. She had 1250 mg of vancomycin on February 14, followed by 1 g twice daily seen on the and 1 g total on February 17. A pigtail catheter was placed atadmission and removed earlier today after imaging showed reduction of total pleural fluid on the right. Vancomycin and Levaquin on February 17 were stopped on recommendation of infectious diseases Allergies Allergy/AdvReac Type Severity Reaction Status Date / Time ibuprofen [From Motrin] AdvReac Mild CAUSED GI Verified 02/15/20 09:48 BLEED PAIN MED Allergy Mild HALLUCINATION Uncoded 02/15/20 09:48 AND NAUSEA - PT DOES NOT WORK Home Medications Medication Instructions Recorded Confirmed Type tolterodine 4 mg PO HS 01/18/19 02/15/20 History amoxicillin-pot clavulanate 1 tab PO BID 02/15/20 02/15/20 History azithromycin 250 mg PO UD 02/15/20 02/15/20 History naproxen 500 mg PO BID 02/15/20 02/15/20 History Patient History Medical History History of GI bleed CAUSED BY MOTRIN Hx of cardiac murmur AGE 5 AND NO PROBLEMS Overactive bladder Right rotator cuff tear s/p repair Surgical History History of arthroplasty of left shoulder ROTATOR CUFF REPAIR Hx of colonoscopy Hx of esophagogastroduodenoscopy Hx of foot surgery LEFT FOOT NEUROMA REMOVED Hx of laparoscopy FOR ECTOPIC Hx of LASIK Hx of tonsillectomy Family History Father Heart disease Social History (Updated 02/20/20 @ 19:10 by Lelia Lucero MD, PhD) Smoking Status: Current every day smoker packs per day: 1; Years Smoked: 40; Cigarettes Per Day: 1PPD; Second Hand Exposure: No; Hx Alcohol Use: No Hx Substance Use: No Preferred Language: Romanian Communication Ability: Effective Transfer And Line Up Worker Required: No Beliefs That Will Affect Care: None Current Living Situation: Alone Feels Safe at Home: Yes Assistive Devices: Oxygen - Continuous Review of Systems Review of Systems: All systems reviewed & are unremarkable except as noted in HPI & below Constitutional: + fatigue, + weakness and + increased appetite (Today for the first time with minimal appetite); no fever Respiratory: as per Subjective / HPI, + cough, + chest congestion, + dyspnea, + dyspnea on exertion, + pain on inspiration and + pain with cough Respiratory symptoms all improving Cardiovascular: as per Subjective / HPI, + chest pain (Positional) and + chest pain with activity; no dyspnea and no orthopnea Gastrointestinal: as per Subjective / HPI Genitourinary: no dysuria and no difficulty urinating Musculoskeletal: no myalgia and no muscle weakness Integumentary: no rash and no non-healing lesions Physical Exam Constitutional: well developed and well nourished; no acute distress Eyes: EOM intact bilaterally ENMT: Ears: no external ear abnormality Nose: no external nose abnormality Mouth: + dry oral mucous membranes Neck: no nuchal rigidity Respiratory: normal respiratory effort Auscultation: + diminished lung sounds (With minimal air movement throughout posterior mayorga; on 2 L oxygen NC) Cardiovascular: RRR, no murmur, no edema Gastrointestinal (Abdomen): Inspection/Auscultation: normal bowel sounds Percussion/Palpation: abdomen soft; abdomen nontender Musculoskeletal: Extremities: strength 5/5 throughout Skin: no rashes, warm and dry Neurologic: caraballo, fluent speech, no tremor Psychiatric: A+Ox3, euthymic affect Genitourinary: No [place] Results & Data ([place]) Vital Signs (Past 12 Hours) Vital Signs Temp Pulse Pulse Resp BP Pulse Ox 02/20/20 15:51 37.0 C 75 20 100/59 L 91 02/20/20 12:06 36.9 C 76 18 114/80 95 02/20/20 08:46 36.5 C 69 18 104/62 96 02/20/20 08:00 78 Laboratory Results 02/20/20 08:08 02/20/20 08:08
--- NOTE | 2020-02-20 19:39 | Hospitalist Progress Note ---
Date of Service February 20, 2020 Assessment & Plan (1) Pneumonia due to COVID-19 virus: (2) Acute respiratory failure with hypoxia: (3) Sepsis: (4) Pleural effusion, right: COVID-19 pneumonia Right pleural effusion--likely parapneumonic effusion Acute respiratory failure with hypoxia Sepsis Right hydropneumothorax Right hydropneumothorax lactic acid 1.1 -Chest CTA:No evidence of pulmonary thromboembolic disease. Moderate sized loculated right pleural effusion with fluid tracking along the fissures accounting for the nodular opacity seen on chest radiograph of same day. Dependent consolidation of the right lung, the majority of which represents compressive atelectasis. Superimposed pneumonia would be difficult to exclude. Prominent and mildly enlarged mediastinal lymph nodes are likely reactive. Moderate emphysema. Hepatic steatosis. -S/P Right pigtail catheter placement by Pulmonology on 02/15/20 and removed on 02/20/20 -Blood Cx:Negative to date -Pleural fluid culture: No growth -Pleural fluid analysis likely exudative Procalcitonin normalized CRP trending down Leukocytosis persistent likely secondary to dexamethasone Received convalescent plasma Completed 5 day remdesivir course Continue dexamethasone Appreciate pulmonology input Continue Zosyn Likely need prolonged course of antibiotics Plan to repeat chest x-ray tomorrow Wean off oxygen as able Needs follow-up with pulmonology upon discharge Hypokalemia Replete electrolytes as needed Check magnesium level GERD Continue Pepcid (5) BRII (acute kidney injury): BRII likely multifactorial--was on vancomycin, received contrast, setting of sepsis, NSAIDs use Cannot R/O ATN Baseline Cr: 1.1 Cr:2.13 Continue IV fluids Avoid nephrotoxic agents as per Appreciate nephrology input (6) DVT prophylaxis: Heparin SQ Code Status DNI/DNR Disposition PT OT prior to discharge Admission and Anticipated Discharge Date Admission Date: February 15, 2020 Subjective Patient is seen and examined at bedside States having pain at chest tube site which was removed this morning Reports nausea associated with GERD-like symptoms Cough, dyspnea slightly better today Denies any other complaints Review of Systems Review of Systems: All systems reviewed & are unremarkable except as noted in HPI & below Physical Exam Physical Exam: Physical Exam: Vitals signs as noted above General Appearance: Ill-appearing, thin, no apparent distress Head: normocephalic, Atraumatic Eyes: normal inspection, EOMI Neck: supple, Trachea midline Respiratory/Chest: Decreased breath sounds on right side, mild basal crackles, No accessory muscle use S/P chest tube removal in dressing Cardiovascular: S1, S2, No murmur Abdomen/GI:Soft, Non tender, Bowel sounds present Extremities/Musculoskelatal:normal inspection, no edema Neurologic/Psych:AAOX3, grossly no focal neurological deficits Skin: normal color, warm Results & Data Results & Data ([facility]) Vital Signs (Past 12 Hours) Vital Signs Temp Pulse Pulse Resp BP Pulse Ox 02/20/20 15:51 37.0 C 75 20 100/59 L 91 02/20/20 12:06 36.9 C 76 18 114/80 95 02/20/20 08:46 36.5 C 69 18 104/62 96 02/20/20 08:00 78 Laboratory Results Short CBC 02/20/20 Range/Units 08:08 WBC 17.11 H (4.8-10.8) K/uL Hgb 12.1 (12.0-16.0) g/dL Hct 37.0 (37-47) % Plt Count 520 H (130-400) K/uL BMP 02/20/20 08:08 Sodium 140 Potassium 3.2 L D Chloride 104 Carbon Dioxide 30 BUN 31 H Creatinine 2.13 H Glucose 106 H Calcium 8.4 L Liver Function 02/20/20 Range/Units 08:08 Total Bilirubin 0.3 (0.2-1) mg/dl AST 21 (15-37) U/L ALT 25 (12-78) U/L Alkaline Phosphatase 71 (45-117) U/L Albumin 1.9 L (3.4-5.0) gm/dl
[2020-02-20] MEDS: TOLTERODINE TARTRATE LA 4 MG CAPCR PO SCH (21:17)
[2020-02-21] MEDS: PIPERACILLIN/TAZOBACTAM 3.375 GM in DEXTROSE 5% 100 ML IV SCH ×3 (02:44→17:40)
[2020-02-21] MEDS: HEPARIN SOD 5,000 UNIT/0.5 ML VIAL SQ SCH ×3 (05:51→21:41)
[2020-02-21 07:36] LABS: BUN Creatinine Ratio 14.1 (10-20); Calcium 8.3 mg/dl (8.5-10.1); Magnesium 2.3 mg/dl (1.8-2.4); Potassium 3.8 mmol/L (3.5-5.1)
--- NOTE | 2020-02-21 08:55 | XRay Report ---
XR chest 1V portable HISTORY: 69 years-old Female s/p chest tube removal right-sided pleural effusion. Status post chest tube removal COMPARISON: Chest radiograph 02/19/2020. TECHNIQUE: Portable AP view of the chest. FINDINGS: Cardiomediastinal and hilar silhouettes are unchanged. Status post removal of the right lung base dao st tube. Tiny lateral right lung base pneumothorax redemonstrated. There are small bilateral pleural effusions with mild bibasilar opacities. No overt pulmonary edema. Opacity of the right midlung is re demonstrated suggestive of fluid tracking within the fissure. Degenerative changes of the shoulders a nd spine. IMPRESSION: 1. Status post removal of the right-sided chest tube with unchanged small right basilar hydropneumoth orax. 2. Small left pleural effusion. 3. Mild bibasilar opacities suggestive of atelectasis versus pneumonitis. ACT 112: Negative or not required by law. The above report was generated using voice recognition software. It may contain grammatical, syntax o r spelling errors. Electronically signed by: Marcin Garzon M.D. 02/21/2020 8:53 AM
[2020-02-21] MEDS: POLYETHYLENE (MIRALAX) 17 GM PACK PO SCH (09:40)
[2020-02-21] MEDS: FAMOTIDINE 20 MG TAB PO SCH ×2 (09:40→20:55)
[2020-02-21] MEDS: DEXAMETHASONE SOD PHOSPHATE 6 MG in SYRINGE 0 ML IV SCH (09:41)
[2020-02-21] MEDS: LACTATED RINGER'S 1,000 ML IV SCH ×2 (09:46→20:54)
--- NOTE | 2020-02-21 10:09 | Nephrology Progress Note ---
Date of Service February 21, 2020 Assessment & Plan (1) BRII (acute kidney injury): Baseline creatinine 1.1. at baseline on presentation and creatinine rapidly dipped to the abhijit 0.6 on February 17. Numbers increased to 1.7 on February 18 and continued up trend to 2.1 02/19, not much changed today at 2.0. Nonoliguric stage II acute kidney injury likely multifactorial in the setting of severe illness, nausea vomiting and NSAID use prior to admission, obligate at admission IV contrast, plus or minus vancomycin and Zosyn dosing and/or remdesivir. Unclear if this is prerenal or ATN. Chemistries and volume status currently acceptable ; w/ poor po intake still at risk fo dehydration. She already had blood and protein in her urine not surprisingly on admission given several days of heavy NSAID use -daily bmp -Continue lactated Ringer's which she appears to be tolerating -Repeat urinalysis ordered -Avoid NSAIDs or unless lifesaving IV contrast. No further vancomycin or remdesivir will be given/courses/indications complete -no acute indication for dialysis and unlikely to need it (2) Acute respiratory failure with hypoxia: No oxygen needs at baseline; remains on 2L -Threshold for x-ray rechecks if oxygen needs change (3) Pneumonia due to COVID-19 virus: No longer in isolation for Covid per inf control; status post course of remdesivir and currently tapering high-dose steroids; remains on Zosyn for loculated pleural /parapneumonic effusion Admission and Anticipated Discharge Date Admission Date: February 15, 2020 Subjective feeling a bit better >> + even loose/multiple bm after miralax; denies voiding concerns; still (barely) tolerating po d/t N/heartburn/malaise; remains on 02ncd Review of Systems Review of Systems: All systems reviewed & are unremarkable except as noted in HPI & below Physical Exam Constitutional: well developed, well nourished and + frail appearing Eyes: EOM intact bilaterally ENMT: Ears: no external ear abnormality Nose: no external nose abnormality Mouth: + dry oral mucous membranes Neck: no nuchal rigidity Respiratory: + labored breathing Auscultation: + diminished lung sounds (With minimal air movement throughout posterior mayorga; on 2 L oxygen NC) up in chair Cardiovascular: RRR, no murmur, no edema Gastrointestinal (Abdomen): Inspection/Auscultation: normal bowel sounds Percussion/Palpation: abdomen soft; abdomen nontender Musculoskeletal: Extremities: strength 5/5 throughout Skin: no rashes, warm and dry Neurologic: caraballo, fluent speech, no tremor Psychiatric: A+Ox3, euthymic affect Genitourinary: no davidson Results & Data ([facility]) Vital Signs (Past 12 Hours) Vital Signs Temp Pulse Pulse Resp BP BP Pulse Ox 02/21/20 08:07 37.0 C 68 16 96/54 L 94 02/21/20 04:40 36.6 C 76 18 97/58 L 95 02/21/20 01:08 66 02/20/20 23:30 36.5 C 61 16 102/57 L 97 Laboratory Results 02/20/20 08:08 02/21/20 06:28
[2020-02-21] MEDS ORDERED: POLYETHYLENE (MIRALAX) 17 GM PACK PO PRN (10:24)
[2020-02-21] MEDS: ALUMINUM/MAGNESIUM/SIMETH (MAALOX MAX) 30 ML UDC PO PRN (11:31)
--- NOTE | 2020-02-21 17:48 | Hospitalist Progress Note ---
Date of Service February 21, 2020 Assessment & Plan (1) Pneumonia due to COVID-19 virus: (2) Acute respiratory failure with hypoxia: (3) Sepsis: (4) Pleural effusion, right: COVID-19 pneumonia Right pleural effusion--likely parapneumonic effusion Acute respiratory failure with hypoxia Sepsis Right hydropneumothorax Right hydropneumothorax lactic acid 1.1 -Chest CTA:No evidence of pulmonary thromboembolic disease. Moderate sized loculated right pleural effusion with fluid tracking along the fissures accounting for the nodular opacity seen on chest radiograph of same day. Dependent consolidation of the right lung, the majority of which represents compressive atelectasis. Superimposed pneumonia would be difficult to exclude. Prominent and mildly enlarged mediastinal lymph nodes are likely reactive. Moderate emphysema. Hepatic steatosis. -S/P Right pigtail catheter placement by Pulmonology on 02/15/20 and removed on 02/20/20 -Blood Cx:Negative to date -Pleural fluid culture: No growth -Pleural fluid analysis likely exudative Procalcitonin normalized CRP trending down Leukocytosis persistent likely secondary to dexamethasone Received convalescent plasma Completed 5 day remdesivir course Continue dexamethasone to complete 10 day course Appreciate pulmonology input Continue Zosyn--Plan to transition to PO abx chest x-ray today showed unchanged small right basilar hydropneumothorax Saturating 95% on 2 liters of supplemental oxygen Needs follow-up with pulmonology upon discharge Hypokalemia Normal Mag levels Replete electrolytes as needed GERD Continue Pepcid (5) BRII (acute kidney injury): BRII likely multifactorial--was on vancomycin, received contrast, setting of sepsis, NSAIDs use Cannot R/O ATN Baseline Cr: 1.1 Cr:2.13>>1.99 Continue IV fluids Avoid nephrotoxic agents as per Appreciate nephrology input (6) DVT prophylaxis: Heparin SQ Code Status DNI/DNR Disposition PT OT prior to discharge Admission and Anticipated Discharge Date Admission Date: February 15, 2020 Subjective Patient is seen and examined at bedside Chest pain at catheter site much improved States feeling tired Reports diarrhea from stool softeners Less cough today Denies Dyspnea Saturating 94% on 2 L of oxygen Offers no other complaints Renal function improving CXR today showed unchanged small right basilar hydropneumothorax Review of Systems Review of Systems: All systems reviewed & are unremarkable except as noted in HPI & below Physical Exam Physical Exam: Physical Exam: Vitals signs as noted above General Appearance: Ill-appearing, thin, no apparent distress Head: normocephalic, Atraumatic Eyes: normal inspection, EOMI Neck: supple, Trachea midline Respiratory/Chest: Decreased breath sounds on right side, CTA, No accessory muscle use S/P chest tube removal in dressing Cardiovascular: S1, S2, No murmur Abdomen/GI:Soft, Non tender, Bowel sounds present Extremities/Musculoskelatal:normal inspection, no edema Neurologic/Psych:AAOX3, grossly no focal neurological deficits Skin: normal color, warm Results & Data Results & Data ([facility]) Vital Signs (Past 12 Hours) Vital Signs Temp Pulse Resp BP BP Pulse Ox 02/21/20 16:07 36.9 C 66 18 104/59 L 95 02/21/20 11:47 36.9 C 70 16 98/60 L 93 02/21/20 08:07 37.0 C 68 16 96/54 L 94 Laboratory Results [facility] 02/21/20 06:28 Sodium 141 Potassium 3.8 D Chloride 106 Carbon Dioxide 32 BUN 28 H Creatinine 1.99 H Glucose 131 H Calcium 8.3 L
[2020-02-21] MEDS: TOLTERODINE TARTRATE LA 4 MG CAPCR PO SCH (20:55)
[2020-02-22] MEDS: ACETAMINOPHEN 325 MG TAB PO PRN ×2 (00:14→16:42)
[2020-02-22] MEDS: PIPERACILLIN/TAZOBACTAM 3.375 GM in DEXTROSE 5% 100 ML IV SCH ×3 (02:50→16:43)
[2020-02-22] MEDS: ALUMINUM/MAGNESIUM/SIMETH (MAALOX MAX) 30 ML UDC PO PRN ×2 (05:24→12:22)
[2020-02-22] MEDS: HEPARIN SOD 5,000 UNIT/0.5 ML VIAL SQ SCH ×3 (05:24→20:47)
[2020-02-22] MEDS: LACTATED RINGER'S 1,000 ML IV SCH ×2 (06:21→16:30)
[2020-02-22 08:00] LABS: Basophils # (auto) 0.02 K/uL (0-0.2); Basophils % (auto) 0.2 %; Eosinophils # (auto) 0.14 K/uL (0-0.5); Eosinophils % (auto) 1.2 %; Hematocrit (blood only) 31.1 % (37-47); Hemoglobin 10.1 g/dL (12.0-16.0); Immature Granulocytes # (auto) 0.23 K/uL (0.00-0.02); Lymphocytes # (auto) 2.29 K/uL (1.2-3.4); Mean Corpuscular Hemoglobin 30.4 pg (25-34); Mean Corpuscular Hgb Conc 32.5 g/dL (32-36); Mean Corpuscular Volume 93.7 fL (80-100); Mean Platelet Volume 8.4 fL (7.4-10.4); Monocytes # (auto) 1.11 K/uL (0.11-0.59); Monocytes % (auto) 9.7 %; Neutrophils # (auto) 7.68 K/uL (1.4-6.5); Neutrophils % (auto) 66.9 %; Platelet Count 509 K/uL (130-400); RDW Coefficient of Variation 14.2 % (11.5-14.5); RDW Standard Deviation 48.6 fL (36.4-46.3); Red Blood Count 3.32 M/uL (4.2-5.4); White Blood Count 11.47 K/uL (4.8-10.8)
[2020-02-22 08:32] LABS: BUN Creatinine Ratio 13.9 (10-20); Calcium 8.5 mg/dl (8.5-10.1); Creatinine Clr Calc Pharmacy 23.7 ml/min; Est GFR (African American) 27.1; Est GFR (Non-African American) 23.4; Potassium 3.6 mmol/L (3.5-5.1)
[2020-02-22] MEDS: FAMOTIDINE 20 MG TAB PO SCH ×2 (10:35→20:47)
[2020-02-22] MEDS: DEXAMETHASONE SOD PHOSPHATE 6 MG in SYRINGE 0 ML IV SCH (10:38)
[2020-02-22] MEDS ORDERED: PANTOprazole 40 MG TAB PO ONE (13:32)
[2020-02-22] MEDS: LACTOBACILLUS ACIDOPHILUS 1 GM PACK PO SCH (16:29)
--- NOTE | 2020-02-22 18:23 | Hospitalist Progress Note ---
Date of Service February 22, 2020 Assessment & Plan (1) Pneumonia due to COVID-19 virus: (2) Acute respiratory failure with hypoxia: (3) Sepsis: (4) Pleural effusion, right: COVID-19 pneumonia Right pleural effusion--likely parapneumonic effusion Acute respiratory failure with hypoxia Sepsis Right hydropneumothorax lactic acid 1.1 -Chest CTA:No evidence of pulmonary thromboembolic disease. Moderate sized loculated right pleural effusion with fluid tracking along the fissures accounting for the nodular opacity seen on chest radiograph of same day. Dependent consolidation of the right lung, the majority of which represents compressive atelectasis. Superimposed pneumonia would be difficult to exclude. Prominent and mildly enlarged mediastinal lymph nodes are likely reactive. Moderate emphysema. Hepatic steatosis. -S/P Right pigtail catheter placement by Pulmonology on 02/15/20 and removed on 02/20/20 Repeat CXR on 02/21/20:Showed unchanged small right basilar hydropneumothorax -Blood Cx:Negative to date -Pleural fluid culture: No growth -Pleural fluid analysis likely exudative Procalcitonin normalized CRP trending down Leukocytosis trending down Received convalescent plasma Completed 5 day remdesivir course To complete 10 day course of dexamethasone Appreciate pulmonology input Continue Zosyn--Plan to transition to PO abx Needs follow-up with pulmonology upon discharge Wean off of oxygen as able Hypokalemia Normal Mag levels Replete electrolytes as needed Monitor GERD Continue Pepcid Added PPI Diarrhea Held bowel regimen Stool for C diff:pending Will consider to start Imodium if C diff is negative (5) BRII (acute kidney injury): BRII likely multifactorial--was on vancomycin, received contrast, setting of sepsis, NSAIDs use Cannot R/O ATN Baseline Cr: 1.1 Cr:2.13>1.99>2.1 GI loses contributing to BRII Continue IV fluids Avoid nephrotoxic agents as per Appreciate nephrology input Monitor volume status while on monitor (6) DVT prophylaxis: Heparin SQ Code Status DNI/DNR Disposition PT OT prior to discharge Admission and Anticipated Discharge Date Admission Date: February 15, 2020 Subjective Patient is seen and examined at bedside States feeling very tired today No significant pain at chest catheter site Reports ongoing diarrhea Less cough today Denies dyspnea Leukocytosis trending down Renal function slightly worsened today Saturating well on 2 L of supplemental oxygen Offers no other complaints Review of Systems Review of Systems: All systems reviewed & are unremarkable except as noted in HPI & below Physical Exam Physical Exam: Physical Exam: Vitals signs as noted above General Appearance: Ill-appearing, thin, no apparent distress Head: normocephalic, Atraumatic Eyes: normal inspection, EOMI Neck: supple, Trachea midline Respiratory/Chest: Decreased breath sounds on right side, CTA S/P chest tube removal in dressing Cardiovascular: S1, S2, No murmur Abdomen/GI:Soft, Non tender, Bowel sounds present Extremities/Musculoskelatal:normal inspection, no edema Neurologic/Psych:AAOX3, grossly no focal neurological deficits Skin: normal color, warm Results & Data Results & Data ([facility]) Vital Signs (Past 12 Hours) Vital Signs Temp Pulse Pulse Resp BP Pulse Ox 02/22/20 15:58 37.1 C 64 20 121/61 95 02/22/20 12:28 36.6 C 63 19 138/67 95 02/22/20 07:46 36.8 C 66 19 114/66 95 Laboratory Results Short CBC 02/22/20 Range/Units 07:08 WBC 11.47 H (4.8-10.8) K/uL Hgb 10.1 L (12.0-16.0) g/dL Hct 31.1 L (37-47) % Plt Count 509 H (130-400) K/uL BMP 02/22/20 07:08 Sodium 141 Potassium 3.6 Chloride 105 Carbon Dioxide 30 BUN 29 H Creatinine 2.10 H Glucose 89 Calcium 8.5
--- NOTE | 2020-02-22 19:06 | Nephrology Progress Note ---
Date of Service February 22, 2020 Assessment & Plan (1) BRII (acute kidney injury): Baseline creatinine 1.1. at baseline on presentation and creatinine rapidly dipped to the abhijit 0.6 on February 17. Numbers increased to 1.7 on February 18 and continued up trend to 2.1 02/19, not much changed today at 2.0. Nonoliguric stage II acute kidney injury likely multifactorial in the setting of severe illness, nausea vomiting and NSAID use prior to admission, obligate at admission IV contrast, plus or minus vancomycin and Zosyn dosing and/or remdesivir. Unclear if this is prerenal or ATN. Chemistries and volume status currently acceptable ; w/ poor po intake still at risk fo dehydration. She already had blood and protein in her urine not surprisingly on admission given several days of heavy NSAID use. no chemistry abnormalities obvious related to diarrhea -daily bmp -Continue lactated Ringer's which she appears to be tolerating given diarrhea but lower rate given bnp finding and ongoing 02 needs -Repeat urinalysis ordered <<<not received for several days and will reorder -Avoid NSAIDs or unless lifesaving IV contrast. No further vancomycin or remdesivir will be given/courses/indications complete -no acute indication for dialysis and unlikely to need it (2) Acute respiratory failure with hypoxia: No oxygen needs at baseline; remains on 2L -low Threshold for x-ray rechecks if oxygen needs change (3) Pneumonia due to COVID-19 virus: No longer in isolation for Covid per inf control; status post course of remdesivir and currently tapering high-dose steroids; remains on Zosyn for loculated pleural /parapneumonic effusion Admission and Anticipated Discharge Date Admission Date: February 15, 2020 Subjective seen on rounds this am at 1115 approx; still very tired, desats she states fast off 02, up and down to bathroom innumerable times she states d/t diarrhea; ongoing voiding issues Review of Systems Review of Systems: All systems reviewed & are unremarkable except as noted in HPI & below Physical Exam Constitutional: well developed, well nourished and + frail appearing; no acute distress Eyes: EOM intact bilaterally ENMT: Ears: no external ear abnormality Nose: no external nose abnormality Mouth: + dry oral mucous membranes Neck: no nuchal rigidity Respiratory: no labored breathing Auscultation: + diminished lung sounds (With minimal air movement throughout post flds R>L; on 2 L oxygen NC;) and + crackles (L base) Cardiovascular: RRR, no murmur, no edema Gastrointestinal (Abdomen): Inspection/Auscultation: normal bowel sounds Percussion/Palpation: abdomen soft; abdomen nontender Musculoskeletal: Extremities: strength 5/5 throughout Skin: no rashes, warm and dry Neurologic: caraballo, fluent speech, no tremor Psychiatric: A+Ox3, euthymic affect Results & Data ([facility]) Vital Signs (Past 12 Hours) Vital Signs Temp Pulse Pulse Resp BP Pulse Ox 02/22/20 15:58 37.1 C 64 20 121/61 95 02/22/20 12:28 36.6 C 63 19 138/67 95 02/22/20 07:46 36.8 C 66 19 114/66 95 Laboratory Results 02/22/20 07:08 02/22/20 07:08 Diagnostic Findings cxryest reviewed
[2020-02-22] MEDS ORDERED: LOPERAMIDE HCL 2 MG CAP PO PRN (19:56)
[2020-02-22] MEDS: TOLTERODINE TARTRATE LA 4 MG CAPCR PO SCH (20:48)
[2020-02-23] MEDS: PIPERACILLIN/TAZOBACTAM 3.375 GM in DEXTROSE 5% 100 ML IV SCH ×3 (01:44→18:45)
[2020-02-23] MEDS: ALUMINUM/MAGNESIUM/SIMETH (MAALOX MAX) 30 ML UDC PO PRN (02:48)
[2020-02-23] MEDS: HEPARIN SOD 5,000 UNIT/0.5 ML VIAL SQ SCH ×3 (04:34→22:01)
[2020-02-23 04:47] LABS: Hemoglobin 9.6 g/dL (12.0-16.0); Mean Corpuscular Volume 93.8 fL (80-100); Mean Platelet Volume 8.5 fL (7.4-10.4); Platelet Count 455 K/uL (130-400); RDW Coefficient of Variation 14.1 % (11.5-14.5); RDW Standard Deviation 48.2 fL (36.4-46.3); White Blood Count 10.83 K/uL (4.8-10.8)
[2020-02-23] MEDS: DEXAMETHASONE SOD PHOSPHATE 6 MG in SYRINGE 0 ML IV SCH (09:00)
[2020-02-23] MEDS: FAMOTIDINE 20 MG TAB PO SCH ×2 (09:00→19:59)
[2020-02-23] MEDS: LACTOBACILLUS ACIDOPHILUS 1 GM PACK PO SCH ×3 (09:00→17:20)
[2020-02-23] MEDS: PANTOprazole 40 MG TAB PO SCH (09:00)
[2020-02-23 17:15] LABS: BUN Creatinine Ratio 15.8 (10-20); Calcium 7.7 mg/dl (8.5-10.1); Creatinine Clr Calc Pharmacy 27.6 ml/min; Est GFR (African American) 32.7; Est GFR (Non-African American) 28.2; Potassium 3.9 mmol/L (3.5-5.1)
[2020-02-23] MEDS: LACTATED RINGER'S 1,000 ML IV SCH (17:55)
[2020-02-23] MEDS: TOLTERODINE TARTRATE LA 4 MG CAPCR PO SCH (19:59)
--- NOTE | 2020-02-23 20:43 | Hospitalist Progress Note ---
Date of Service February 23, 2020 Assessment & Plan (1) Pneumonia due to COVID-19 virus: (2) Acute respiratory failure with hypoxia: (3) Sepsis: (4) Pleural effusion, right: COVID-19 pneumonia Right pleural effusion--likely parapneumonic effusion Acute respiratory failure with hypoxia Sepsis Right hydropneumothorax lactic acid 1.1 -Chest CTA:No evidence of pulmonary thromboembolic disease. Moderate sized loculated right pleural effusion with fluid tracking along the fissures accounting for the nodular opacity seen on chest radiograph of same day. Dependent consolidation of the right lung, the majority of which represents compressive atelectasis. Superimposed pneumonia would be difficult to exclude. Prominent and mildly enlarged mediastinal lymph nodes are likely reactive. Moderate emphysema. Hepatic steatosis. -S/P Right pigtail catheter placement by Pulmonology on 02/15/20 and removed on 02/20/20 Repeat CXR on 02/21/20:Showed unchanged small right basilar hydropneumothorax -Blood Cx:Negative to date -Pleural fluid culture: No growth -Pleural fluid analysis likely exudative Procalcitonin normalized CRP trending down Received convalescent plasma Completed 5 day remdesivir course To complete 10 day course of dexamethasone tomorrow Appreciate pulmonology input Continue Zosyn--Plan to transition to PO abx Needs follow-up with pulmonology upon discharge Saturating low 90s on room air Repeat chest x-ray in the morning Leukocytosis trending down Hypokalemia Normal Mag levels Replete electrolytes as needed Monitor GERD Continue Pepcid Added PPI Diarrhea Held bowel regimen Stool for C diff: Negative Imodium as needed (5) BRII (acute kidney injury): BRII likely multifactorial--was on vancomycin, received contrast, setting of sepsis, NSAIDs use Cannot R/O ATN Baseline Cr: 1.1 Cr:2.13>1.99>2.1> 1.8 GI loses contributing to BRII Continue IV fluids Avoid nephrotoxic agents as per Appreciate nephrology input Monitor volume status while on monitor (6) DVT prophylaxis: Heparin SQ Code Status DNI/DNR Disposition PT OT prior to discharge Admission and Anticipated Discharge Date Admission Date: February 15, 2020 Subjective Patient is seen and examined at bedside Complains of transient right-sided chest discomfort this morning Still has diarrhea but semiformed Appetite better today GERD symptoms improved Leukocytosis trending down Renal function slightly better Saturating low 90s on room air Review of Systems Review of Systems: All systems reviewed & are unremarkable except as noted in HPI & below Physical Exam Physical Exam: Physical Exam: Vitals signs as noted above General Appearance: Ill-appearing, thin, no apparent distress Head: normocephalic, Atraumatic Eyes: normal inspection, EOMI Neck: supple, Trachea midline Respiratory/Chest: Decreased breath sounds on right side, CTA S/P chest tube removal in dressing Cardiovascular: S1, S2, No murmur Abdomen/GI:Soft, Non tender, Bowel sounds present Extremities/Musculoskelatal:normal inspection, no edema Neurologic/Psych:AAOX3, grossly no focal neurological deficits Skin: normal color, warm Results & Data Results & Data ([facility]) Vital Signs (Past 12 Hours) Vital Signs Temp Pulse Resp BP Pulse Ox 02/23/20 20:00 71 18 124/63 91 02/23/20 14:00 37.6 C H 66 18 108/68 93 Laboratory Results Short CBC 02/23/20 Range/Units 04:31 WBC 10.83 H (4.8-10.8) K/uL Hgb 9.6 L (12.0-16.0) g/dL Hct 30.0 L (37-47) % Plt Count 455 H (130-400) K/uL BMP 02/23/20 04:31 Sodium 141 Potassium 3.9 Chloride 106 Carbon Dioxide 33 H BUN 28 H Creatinine 1.80 H D Glucose 108 H Calcium 7.7 L
[2020-02-23] MEDS: ACETAMINOPHEN 325 MG TAB PO PRN (22:07)
[2020-02-24] MEDS: PIPERACILLIN/TAZOBACTAM 3.375 GM in DEXTROSE 5% 100 ML IV SCH ×3 (02:22→17:23)
[2020-02-24] MEDS: LACTATED RINGER'S 1,000 ML IV SCH ×2 (05:50→12:34)
[2020-02-24] MEDS: HEPARIN SOD 5,000 UNIT/0.5 ML VIAL SQ SCH ×3 (05:57→22:08)
[2020-02-24 07:23] LABS: Hemoglobin 10.5 g/dL (12.0-16.0); Mean Corpuscular Hgb Conc 32.8 g/dL (32-36); Mean Corpuscular Volume 94.4 fL (80-100); Mean Platelet Volume 8.7 fL (7.4-10.4); Platelet Count 547 K/uL (130-400); RDW Coefficient of Variation 14.4 % (11.5-14.5); RDW Standard Deviation 49.2 fL (36.4-46.3); Red Blood Count 3.39 M/uL (4.2-5.4); White Blood Count 12.13 K/uL (4.8-10.8)
[2020-02-24 07:52] LABS: BUN Creatinine Ratio 14.3 (10-20); Calcium 8.6 mg/dl (8.5-10.1); Est GFR (African American) 31.9; Est GFR (Non-African American) 27.5; Potassium 4.1 mmol/L (3.5-5.1)
[2020-02-24] MEDS: FAMOTIDINE 20 MG TAB PO SCH ×2 (08:18→19:54)
[2020-02-24] MEDS: LACTOBACILLUS ACIDOPHILUS 1 GM PACK PO SCH ×3 (08:18→16:29)
[2020-02-24] MEDS: PANTOprazole 40 MG TAB PO SCH (08:18)
[2020-02-24] MEDS: DEXAMETHASONE SOD PHOSPHATE 6 MG in SYRINGE 0 ML IV SCH (08:30)
--- NOTE | 2020-02-24 09:08 | XRay Report ---
XR chest 2V PA/lateral CLINICAL HISTORY: Hypoxia COMPARISON STUDY: Chest radiograph February 21, 2020. Chest CT February 19, 2020. FINDINGS: Small bilateral pleural effusions are similar to exam of February 21, 2020. Small right basi lar pneumothorax shown on prior exam is not clearly identified. Right basilar airspace opacity has sl ightly increased. There is minimal left basilar opacity. Cardiac size is normal. There is no evidence for pulmonary edema. IMPRESSION: 1. No significant change in small bilateral pleural effusions. 2. Mild increase in right basilar opacity which favors pneumonia. ACT 112: Negative or not required by law. Electronically signed by: Carson Chang M.D. 02/24/2020 9:07 AM
--- NOTE | 2020-02-24 17:55 | Nephrology Progress Note ---
Date of Service February 24, 2020 Assessment & Plan (1) BRII (acute kidney injury): Baseline creatinine 1.1. at baseline on presentation and creatinine rapidly dipped to the abhijit 0.6 on February 17. Numbers increased to 1.7 on February 18 and continued up trend to 2.1 02/19, not much changed today at 1.8. Nonoliguric stage II acute kidney injury likely multifactorial in the setting of severe illness, nausea vomiting and NSAID use prior to admission, obligate at admission IV contrast, plus or minus vancomycin and Zosyn dosing and/or remdesivir. Unclear if this is prerenal or ATN. Chemistries and volume status currently acceptable ; w/ poor po intake still at risk fo dehydration. She already had blood and protein in her urine not surprisingly on admission given several days of heavy NSAID use. no chemistry abnormalities obvious related to diarrhea -daily bmp -stop LR Once current bag complete -Repeat urinalysis ordered <<<not received for several days and will reorder -Avoid NSAIDs or unless lifesaving IV contrast. No further vancomycin or remdesivir will be given/courses/indications complete -no acute indication for dialysis and unlikely to need it >>needs bmp, uacm, prot/creat w/in week of d/c and f/u w/ Dr Lucero or KELLE Garcia w/in 2 wks after d/c; telemed visit ok (2) Acute respiratory failure with hypoxia: No oxygen needs at baseline;on RA today (3) Pneumonia due to COVID-19 virus: No longer in isolation for Covid per inf control; status post course of remdesivir and currently tapering high-dose steroids; remains on Zosyn for loculated pleural /parapneumonic effusion Admission and Anticipated Discharge Date Admission Date: February 15, 2020 Subjective feels a bit better and on RA today. still ocasional cough; diarrhea slowing but persists; no voiding issues except frequency Review of Systems Review of Systems: All systems reviewed & are unremarkable except as noted in HPI & below Physical Exam Constitutional: well developed, well nourished and + frail appearing; no acute distress Eyes: EOM intact bilaterally ENMT: Ears: no external ear abnormality Nose: no external nose abnormality Mouth: + dry oral mucous membranes Neck: no nuchal rigidity Respiratory: no labored breathing Auscultation: + diminished lung sounds (With minimal air movement throughout post flds R>L; on 2 L oxygen NC;) and + crackles (L base) Cardiovascular: RRR, no murmur, no edema Gastrointestinal (Abdomen): Inspection/Auscultation: normal bowel sounds Percussion/Palpation: abdomen soft; abdomen nontender Musculoskeletal: Extremities: strength 5/5 throughout Skin: no rashes, warm and dry Neurologic: caraballo, fluent speech, no tremor Psychiatric: A+Ox3, euthymic affect Results & Data ([facility]) Vital Signs (Past 12 Hours) Vital Signs Temp Pulse Pulse Resp BP Pulse Ox 02/24/20 15:16 36.9 C 56 L 18 131/68 94 02/24/20 14:57 59 L 02/24/20 11:14 36.8 C 84 20 127/74 92 02/24/20 07:46 58 L 02/24/20 07:16 36.8 C 57 L 18 137/72 92 Laboratory Results 02/24/20 06:51 02/24/20 06:51
[2020-02-24] MEDS: ACETAMINOPHEN 325 MG TAB PO PRN (19:53)
[2020-02-24] MEDS: TOLTERODINE TARTRATE LA 4 MG CAPCR PO SCH (19:54)
--- NOTE | 2020-02-24 19:57 | Hospitalist Progress Note ---
Date of Service February 24, 2020 Assessment & Plan (1) Pneumonia due to COVID-19 virus: (2) Acute respiratory failure with hypoxia: (3) Sepsis: (4) Pleural effusion, right: COVID-19 pneumonia Right pleural effusion--likely parapneumonic effusion Acute respiratory failure with hypoxia Sepsis Right hydropneumothorax lactic acid 1.1 -Chest CTA:No evidence of pulmonary thromboembolic disease. Moderate sized loculated right pleural effusion with fluid tracking along the fissures accounting for the nodular opacity seen on chest radiograph of same day. Dependent consolidation of the right lung, the majority of which represents compressive atelectasis. Superimposed pneumonia would be difficult to exclude. Prominent and mildly enlarged mediastinal lymph nodes are likely reactive. Moderate emphysema. Hepatic steatosis. -S/P Right pigtail catheter placement by Pulmonology on 02/15/20 and removed on 02/20/20 Repeat CXR on 02/21/20:Showed unchanged small right basilar hydropneumothorax -Blood Cx:Negative to date -Pleural fluid culture: No growth -Pleural fluid analysis likely exudative Procalcitonin normalized CRP trending down Received convalescent plasma Completed 5 day remdesivir and 10 course of dexamethasone Appreciate pulmonology input Continue Zosyn--Plan to transition to PO abx as able Needs follow-up with pulmonology upon discharge Saturating low 90s on room air Persistent leukocytosis likely due to steroids Repeat chest x-ray showed decreased pneumothorax Needs 2 Step prior to discharge Hypokalemia Normal Mag levels Replete electrolytes as needed Monitor GERD Continue Pepcid Added PPI Diarrhea Held bowel regimen Stool for C diff: Negative Imodium as needed Slowly improving (5) BRII (acute kidney injury): BRII likely multifactorial--was on vancomycin, received contrast, setting of sepsis, NSAIDs use Cannot R/O ATN Baseline Cr: 1.1 Cr:2.13>1.99>2.1> 1.8>1.84 GI loses contributing to BRII Received IV fluids Avoid nephrotoxic agents as per Appreciate nephrology input Monitor volume status while on monitor (6) DVT prophylaxis: Heparin SQ Code Status DNI/DNR Disposition PT OT prior to discharge Admission and Anticipated Discharge Date Admission Date: February 15, 2020 Subjective Patient is seen and examined at bedside Denies any chest pain today Feels better today Saturating low 90s on room air Diarrhea slowly improving Less cough Repeat chest x-ray showed decreased pneumothorax Review of Systems Review of Systems: All systems reviewed & are unremarkable except as noted in HPI & below Physical Exam Physical Exam: Physical Exam: Vitals signs as noted above General Appearance: Ill-appearing, thin, no apparent distress Head: normocephalic, Atraumatic Eyes: normal inspection, EOMI Neck: supple, Trachea midline Respiratory/Chest: Decreased breath sounds on right side, CTA S/P chest tube removal in dressing Cardiovascular: S1, S2, No murmur Abdomen/GI:Soft, Non tender, Bowel sounds present Extremities/Musculoskelatal:normal inspection, no edema Neurologic/Psych:AAOX3, grossly no focal neurological deficits Skin: normal color, warm Results & Data Results & Data ([facility]) Vital Signs (Past 12 Hours) Vital Signs Temp Pulse Pulse Resp BP Pulse Ox 02/24/20 15:16 36.9 C 56 L 18 131/68 94 02/24/20 14:57 59 L 02/24/20 11:14 36.8 C 84 20 127/74 92 Laboratory Results Short CBC 02/24/20 Range/Units 06:51 WBC 12.13 H (4.8-10.8) K/uL Hgb 10.5 L (12.0-16.0) g/dL Hct 32.0 L (37-47) % Plt Count 547 H (130-400) K/uL BMP 02/24/20 06:51 Sodium 142 Potassium 4.1 Chloride 107 Carbon Dioxide 29 BUN 26 H Creatinine 1.84 H Glucose 85 Calcium 8.6
[2020-02-24 20:04] LABS: Appearance Urine Clear (Clear); Bilirubin Urine Negative (Negative); Blood Urine Negative (Negative); Color Urine Yellow; Glucose Urine UA Negative (Negative); Ketones Urine Negative (Negative); Leukocyte Esterase Urine Negative (Negative); Nitrite Urine Negative (Negative); Protein Urine Negative (Negative); Specific Gravity Urine 1.011 (1.000-1.030); Urobilinogen Urine Negative (Negative)
[2020-02-25] MEDS: PIPERACILLIN/TAZOBACTAM 3.375 GM in DEXTROSE 5% 100 ML IV SCH (01:40)
[2020-02-25] MEDS: LACTATED RINGER'S 1,000 ML IV SCH (01:43)
[2020-02-25] MEDS: HEPARIN SOD 5,000 UNIT/0.5 ML VIAL SQ SCH ×2 (05:54→13:08)
[2020-02-25 06:18] LABS: BUN Creatinine Ratio 12.6 (10-20); Calcium 8.4 mg/dl (8.5-10.1); Est GFR (African American) 31.9; Est GFR (Non-African American) 27.5
[2020-02-25] MEDS: FAMOTIDINE 20 MG TAB PO SCH (07:59)
[2020-02-25] MEDS: LACTOBACILLUS ACIDOPHILUS 1 GM PACK PO SCH ×2 (07:59→12:34)
[2020-02-25] MEDS: PANTOprazole 40 MG TAB PO SCH (07:59)
[2020-02-25] MEDS: ACETAMINOPHEN 325 MG TAB PO PRN (08:06)
--- NOTE | 2020-02-25 13:05 | Nephrology Progress Note ---
Date of Service February 25, 2020 Assessment & Plan (1) BRII (acute kidney injury): Baseline creatinine 1.1. at baseline on presentation and creatinine rapidly dipped to the abhijit 0.6 on February 17. Numbers increased to 1.7 on February 18 and continued up trend to 2.1 02/19, not much changed today at 1.8 for 3rd day. Nonoliguric stage II acute kidney injury likely multifactorial in the setting of severe illness, nausea vomiting and NSAID use prior to admission, obligate at admission IV contrast, plus or minus vancomycin and Zosyn dosing and/or remdesivir. Unclear if this is prerenal or ATN. Chemistries and volume status currently acceptable ; w/ poor po intake still at risk fo dehydration. She already had blood and protein in her urine not surprisingly on admission given several days of heavy NSAID use. no chemistry abnormalities obvious related to diarrhea. repeat ua finally posted 02/24 > unremarkable but for high pH; hematuria, dipstick proteinuria gone -OK from renal standpoint for d/c >>needs bmp, uacm, prot/creat w/in week of d/c and f/u w/ Dr Lucero or KELLE Garcia w/in 2 wks after d/c; telemed visit ok; continue to avoid nsaids (2) Acute respiratory failure with hypoxia: No oxygen needs at baseline;on RA today (3) Pneumonia due to COVID-19 virus: No longer in isolation for Covid per inf control; status post course of remdesivir and currently tapering high-dose steroids; remains on Zosyn for loculated pleural /parapneumonic effusion Admission and Anticipated Discharge Date Admission Date: February 15, 2020 Subjective feels a bit better; remaisn on RA; only occaional cough; diarrhea/polyuria slowed Review of Systems Review of Systems: All systems reviewed & are unremarkable except as noted in HPI & below Physical Exam Constitutional: well developed, well nourished and + frail appearing; no acute distress Eyes: EOM intact bilaterally ENMT: Ears: no external ear abnormality Nose: no external nose abnormality Mouth: + dry oral mucous membranes Neck: no nuchal rigidity Respiratory: no labored breathing Auscultation: + diminished lung sounds (With minimal air movement throughout post flds ) Cardiovascular: RRR, no murmur, no edema Gastrointestinal (Abdomen): Inspection/Auscultation: normal bowel sounds Percussion/Palpation: abdomen soft; abdomen nontender Musculoskeletal: Extremities: strength 5/5 throughout Skin: no rashes, warm and dry Neurologic: caraballo, fluent speech, no tremor Psychiatric: A+Ox3, euthymic affect Results & Data ([facility]) Vital Signs (Past 12 Hours) Vital Signs Temp Pulse Pulse Pulse Pulse Pulse Pulse 02/25/20 10:45 87 89 70 74 02/25/20 08:00 36.9 C 63 02/25/20 07:36 58 L 02/25/20 04:03 36.5 C 53 L Resp Resp Resp Resp Resp BP Pulse Ox 02/25/20 10:45 20 20 19 19 02/25/20 08:00 18 134/74 96 02/25/20 07:36 02/25/20 04:03 17 119/65 92 Pulse Ox Pulse Ox Pulse Ox Pulse Ox 02/25/20 10:45 91 88 L 93 91 02/25/20 08:00 02/25/20 07:36 02/25/20 04:03 Laboratory Results 02/24/20 06:51 02/25/20 05:10
--- NOTE | 2020-02-25 14:44 | Hospitalist Progress Note ---
Date of Service February 25, 2020 Assessment & Plan (1) Pneumonia due to COVID-19 virus: (2) Acute respiratory failure with hypoxia: (3) Sepsis: (4) Pleural effusion, right: COVID-19 pneumonia Right pleural effusion--likely parapneumonic effusion Acute respiratory failure with hypoxia Sepsis Right hydropneumothorax lactic acid 1.1 -Chest CTA:No evidence of pulmonary thromboembolic disease. Moderate sized loculated right pleural effusion with fluid tracking along the fissures accounting for the nodular opacity seen on chest radiograph of same day. Dependent consolidation of the right lung, the majority of which represents compressive atelectasis. Superimposed pneumonia would be difficult to exclude. Prominent and mildly enlarged mediastinal lymph nodes are likely reactive. Moderate emphysema. Hepatic steatosis. -S/P Right pigtail catheter placement by Pulmonology on 02/15/20 and removed on 02/20/20 Repeat CXR on 02/21/20:Showed unchanged small right basilar hydropneumothorax -Blood Cx:Negative to date -Pleural fluid culture: No growth -Pleural fluid analysis likely exudative Procalcitonin normalized CRP trending down Received convalescent plasma Completed 5 day remdesivir and 10 course of dexamethasone Appreciate pulmonology input Continue Zosyn--Plan to transition to PO abx upon discharge to complete the course as per Pulm Needs follow-up with pulmonology upon discharge Saturating low 90s on room air Repeat chest x-ray showed decreased pneumothorax 2 Step: Requires 1 liter of supplemental oxygen with actitivity Hypokalemia Normal Mag levels Replete electrolytes as needed Monitor GERD Continue Pepcid Added PPI Diarrhea Held bowel regimen Stool for C diff: Negative Imodium as needed Improved (5) BRII (acute kidney injury): BRII likely multifactorial--was on vancomycin, received contrast, setting of sepsis, NSAIDs use Cannot R/O ATN Baseline Cr: 1.1 Cr:2.13>1.99>2.1> 1.8>1.84 GI loses contributing to BRII Received IV fluids Avoid nephrotoxic agents as per Appreciate nephrology input Monitor volume status while on monitor (6) DVT prophylaxis: Heparin SQ Code Status DNI/DNR Disposition Plan to discharge home today Admission and Anticipated Discharge Date Admission Date: February 15, 2020 Subjective Patient is seen and examined at bedside States feeling a lot better today Cough, Diarrhea resolved Denies nausea, vomiting, abdominal pain, chest pain Saturating low 90s on room air Had 2 Step:Requires 1 L of supplemental oxygen with activity Offers no other complaints Plan to discharge home today Review of Systems Review of Systems: All systems reviewed & are unremarkable except as noted in HPI & below Physical Exam Physical Exam: Physical Exam: Vitals signs as noted above General Appearance: Ill-appearing, thin, no apparent distress Head: normocephalic, Atraumatic Eyes: normal inspection, EOMI Neck: supple, Trachea midline Respiratory/Chest: Decreased breath sounds on right side, Mild basal crackles S/P chest tube removal in dressing Cardiovascular: S1, S2, No murmur Abdomen/GI:Soft, Non tender, Bowel sounds present Extremities/Musculoskelatal:normal inspection, no edema Neurologic/Psych:AAOX3, grossly no focal neurological deficits Skin: normal color, warm Results & Data Results & Data ([facility]) Vital Signs (Past 12 Hours) Vital Signs Temp Pulse Pulse Pulse Pulse Pulse Pulse 02/25/20 13:23 36.8 C 78 02/25/20 12:00 36.8 C 78 02/25/20 10:45 87 89 70 74 02/25/20 08:00 36.9 C 63 02/25/20 07:36 58 L 02/25/20 04:03 36.5 C 53 L Resp Resp Resp Resp Resp BP Pulse Ox 02/25/20 13:23 18 110/72 93 02/25/20 12:00 18 110/72 93 02/25/20 10:45 20 20 19 19 02/25/20 08:00 18 134/74 96 02/25/20 07:36 02/25/20 04:03 17 119/65 92 Pulse Ox Pulse Ox Pulse Ox Pulse Ox 02/25/20 13:23 02/25/20 12:00 02/25/20 10:45 91 88 L 93 91 02/25/20 08:00 02/25/20 07:36 02/25/20 04:03 Laboratory Results BMP 02/25/20 05:10 Sodium 142 Potassium 4.0 Chloride 109 H Carbon Dioxide 29 BUN 23 H Creatinine 1.84 H Glucose 101 H Calcium 8.4 L Urine 02/24/20 Range/Units 19:05 Urine Color Yellow Urine Appearance Clear (Clear) Urine pH 8.0 H (4.5-7.5) Ur Specific [place] 1.011 (1.000-1.030) Urine Protein Negative (Negative) Urine Glucose (UA) Negative (Negative)
--- NOTE | 2020-02-25 16:16 | Discharge Summary ---
Date of Service February 25, 2020 Admission HPI Per Admitting Provider Patient was interviewed via telephone. 69-year-old female without significant PMH who presents to the ED for evaluation of shortness of breath, cough, right-sided chest pain. Patient reports she developed a cough on 01/31. 2 days ago, she reports she developed worsening shortness of breath and right-sided chest pain. She was seen by PCP and given a azithromycin and Augmentin for suspected pneumonia. She was tested for COVID-19 which has come back positive. Patient reports that the shortness of breath has gotten significantly worse over the past 2 days. The right sided chest pain is now wrapping around into her back. She reports pain with deep breath and minimal movement. Cough has been productive for clear/white sputum. Last evening patient reports she developed nausea and vomiting. Denies hematemesis or coffee-ground emesis. She has had a poor appetite. Reports sense of taste and smell remain intact. No fevers. She denies lightheadedness, dizziness, diaphoresis, syncopal events. No urinary symptoms. In the ED, patient was hypoxic on room air at 88%. She is currently saturating well with 3 L of oxygen via nasal cannula. CXR shows partially loculated moderate right pleural effusi on and right mid to lower lung zone airspace opacities, patchy density at the basal left lower lobe, 7 cm lobular density within the periphery the right midlung zone may represent a loculated pleural fluid. A pleural-based mass could also a similar appearance. Labs show WBC 37K. One low BP reading 94/56, otherwise stable. HR tachycardic 90s to low 100s. Patient received IV Tylenol, IV dexamethasone, IV Dilaudid 0.5 mg, nebulizer treatment, IV Levaquin, Lidoderm patch, IV magnesium, IV Zofran, IV Zosyn, p.o. valacyclovir, IV vancomycin. Admission Exam Per Admitting Provider EXAM: VS- as noted Constitutional- well nourished; appears to be acutely ill Eyes- PERRL, anicteric sclerae, conjunctivae normal ENMT- external ear and nose normal; oropharynx clear; dentition good Neck- trachea midline; no thyromegaly Respiratory- tachypneic; rales left base; decreased breath sounds right base Cardiovascular- RRR, no murmur/gallop/rub; no JVD; no pretibial edema; normal capillary refill Abdomen- normal bowel sounds, soft, nontender, nondistended; no palpable masses or hepatosplenomegaly Musculoskeletal- no cyanosis Skin- warm & dry; normal color; no rashes Neurologic- no facial palsy; no dysarthria or aphasia; motor strength extremities grossly intact; patellar DTR's 1/2 bilaterally Psychiatric- alert, oriented x 3; normal affect Lymphatic- no cervical adenopathy Principal Diagnosis Acute respiratory failure with hypoxia Sepsis COVID-19 pneumonia Right hydropneumothorax Acute kidney injury Discharge Data Allergies Allergy/AdvReac Type Severity Reaction Status Date / Time ibuprofen [From Motrin] AdvReac Mild CAUSED GI Verified 02/15/20 09:48 BLEED PAIN MED Allergy Mild HALLUCINATION Uncoded 02/15/20 09:48 AND NAUSEA - PT DOES NOT WORK Consultations 02/15/20 11:09 ED Decision to Admit Stat 02/15/20 16:57 Consult Pulmonology Routine 02/17/20 07:22 Consult Infectious Diseases Routine 02/20/20 09:33 Consult Nephrology Routine Procedures Performed -Chest CTA:No evidence of pulmonary thromboembolic disease. Moderate sized loculated right pleural effusion with fluid tracking along the fissures accounting for the nodular opacity seen on chest radiograph of same day. Dependent consolidation of the right lung, the majority of which represents compressive atelectasis. Superimposed pneumonia would be difficult to exclude. Prominent and mildly enlarged mediastinal lymph nodes are likely reactive. Moderate emphysema. Hepatic steatosis. Ordered Studies 02/15/20 10:27 CT abd pelvis IV con only Stat CT angio chest PE protocol Stat 02/15/20 10:28 CT lumbar spine wo con Stat 02/19/20 06:00 CT chest wo con Routine Hospital Course (1) Pneumonia due to COVID-19 virus: (2) Acute respiratory failure with hypoxia: (3) Sepsis: (4) Pleural effusion, right: COVID-19 pneumonia Right pleural effusion--likely parapneumonic effusion Acute respiratory failure with hypoxia Sepsis Right hydropneumothorax lactic acid 1.1 -Chest CTA:No evidence of pulmonary thromboembolic disease. Moderate sized loculated right pleural effusion with fluid tracking along the fissures accoun ting for the nodular opacity seen on chest radiograph of same day. Dependent consolidation of the right lung, the majority of which represents compressive atelectasis. Superimposed pneumonia would be difficult to exclude. Prominent and mildly enlarged mediastinal lymph nodes are likely reactive. Moderate emphysema. Hepatic steatosis. -S/P Right pigtail catheter placement by Pulmonology on 02/15/20 and removed on 02/20/20 Repeat CXR on 02/21/20:Showed unchanged small right basilar hydropneumothorax -Blood Cx:Negative to date -Pleural fluid culture: No growth -Pleural fluid analysis likely exudative Procalcitonin normalized CRP trending down Received convalescent plasma Completed 5 day remdesivir and 10 course of dexamethasone Appreciate pulmonology input Continue Zosyn--Plan to transition to PO abx upon discharge to complete the course as per Pulm Needs follow-up with pulmonology upon discharge Saturating low 90s on room air Repeat chest x-ray showed decreased pneumothorax 2 Step: Requires 1 liter of supplemental oxygen with actitivity Hypokalemia Normal Mag levels Replete electrolytes as needed Monitor GERD Continue Pepcid Added PPI Diarrhea Held bowel regimen Stool for C diff: Negative Imodium as needed Improved (5) BRII (acute kidney injury): BRII likely multifactorial--was on vancomycin, received contrast, setting of sepsis, NSAIDs use Cannot R/O ATN Baseline Cr: 1.1 Cr:2.13>1.99>2.1> 1.8>1.84 GI loses contributing to BRII Received IV fluids Avoid nephrotoxic agents as per Appreciate nephrology input Monitor volume status while on monitor (6) DVT prophylaxis: Heparin SQ Code Status DNI/DNR Disposition Plan to discharge home today Total Time Total Time Spent Total Time Spent (In Minutes): 41 minutes Total Time Includes: Examination of the Patient, Discharge Planning, Medication Reconciliation, Communication With Other Providers and Other Discharge Plan Discharge Items Patient Disposition: Home - Home Health Services Reason For Visit: COVID 19 PNEUMONIA, RESP FAILURE Discharge Diagnosis: Acute respiratory failure with hypoxia Sepsis COVID-19 pneumonia Right hydropneumothorax Acute kidney injury Activity: Per Instructions section Exercise/Sports: Gradually increase as tolerated Non-emergency contact: Primary Care Provider, Rope Silica Machine Operator and Solar Resource Assessor Call non-emergency contact if: you have any medication questions, your symptoms worsen, your pain is not controlled, your pain is worsening, your pain is unusual for you, your pain is concerning for you, you have a fever, your wound has increased redness, your wound has increased drainage and your wound pain has increased Follow-up/Referrals: Joe Tolbert MD [Physician] - 03/10/20 3:45 pm (PLEASE NOTE THAT THIS IS A TELEPHONE APPOINTMENT. THE PHYSICIAN WILL CALL YOU AT THE APPOINTED TIME. IF YOU HAVE ANY QUESTIONS, PLEASE CALL ) Isela Hester DO [Primary Care Provider] - (Date & Time 02/29/2020 1:50 PM Provider Isela Hester DO Department Internal Medicine [facility] PLEASE NOTE: THIS IS A TELEPHONE APPOINTMENT. YOUR PHYSICIAN WILL CALL YOU AT THE APPOINTMENT TIME. IF YOU HAVE ANY QUESTIONS, PLEASE CALL ) Diet: Heart Healthy Ambulatory Orders: Basic Metabolic Panel (Routine) Timeframe: 2 Weeks Location: Determined by Patient Ordered By: Rudy Belcher Urine rflx Microscopic (Routine) Timeframe: 2 Weeks Location: Determined by Patient Ordered By: Rudy Belcher Protein/Creatinine Ratio Urine (Routine) Timeframe: 2 Weeks Location: Determined by Patient Ordered By: Rudy Belcher Addtl Attending Provider Instructions: Follow-up with your primary care physician on 02/29/2020 at 1:50 PM Follow-up with your correction officer city or county jail Joe Peguero on 03/10/20 at 3:45pm as scheduled Follow-up with your relay tester or KELLE Garcia in 2 weeks as per your Rope Silica Machine Operator Get Blood/Urine Test in 2 weeks and follow-up with your relay tester with results. (Urinalysis with microscopy, protein creatinine ratio, basic metabolic panel. Get repeat CT chest in 4-6 weeks for follow-up of pleural effusion as recommended by your correction officer city or county jail. Complete the antibiotic course Augmentin 500mg Twice a day as prescribed. Avoid taking NSAIDs like Aleve, Motrin, naproxen, ibuprofen etc as advised. Seek immediate medical attention if your symptoms reoccur or worsen Home Isolation COVID-19 Instructions The following information about Home Isolation is from the CDC Website: https://www.cdc.gov/coronavirus/2019-ncov/hcp/grrjtcin-aesdmwx-vogeoj.html Stay home except to get medical care People who are mildly ill with COVID-19 are able to isolate at home during their illness. You should restrict activities outside your home, except for getting medical care. Do not go to work, school, or public areas. Avoid using public transportation, ride-sharing, or taxis. Separate yourself from other people and animals in your home People: As much as possible, you should stay in a specific room and away from other people in your home. Also, you should use a separate bathroom, if available. Animals: You should restrict contact with pets and other animals while you are sick with COVID-19, just like you would around other people. Although there have not been reports of pets or other animals becoming sick with COVID-19, it is still recommended that people sick with COVID-19 limit contact with animals until more information is known about the virus. When possible, have another member of your household care for your animals while you are sick. If you are sick with COVID-19, avoid contact with your pet, including petting, snuggling, being kissed or licked, and sharing food. If you must care for your pet or be around animals while you are sick, wash your hands before and after you interact with pets and wear a face mask. Call ahead before visiting your doctor If you have a medical appointment, call the healthcare provider and tell them that you have or may have COVID-19. This will help the healthcare providers office take steps to keep other people from getting infected or exposed. Wear a face mask You should wear a face mask when you are around other people (e.g., sharing a room or vehicle) or pets and before you enter a healthcare providers office. If you are not able to wear a face mask (for example, because it causes trouble breathing), then people who live with you should not stay in the same room with you, or they should wear a face mask if they enter your room. Cover your coughs and sneezes Cover your mouth and nose with a tissue when you cough or sneeze. Throw used tissues in a lined trash can. Immediately wash your hands with soap and water for at least 20 seconds or, if soap and water are not available, clean your hands with an alcohol-based hand head bone grinder that contains at least 60% alcohol. Clean your hands often Wash your hands often with soap and water for at least 20 seconds, especially after blowing your nose, coughing, or sneezing; going to the bathroom; and before eating or preparing food. If soap and water are not readily available, use an alcohol-based hand head bone grinder with at least 60% alcohol, covering all surfaces of your hands and rubbing them together until they feel dry. Soap and water are the best option if hands are visibly dirty. Avoid touching your eyes, nose, and mouth with unwashed hands. Avoid sharing personal household items You should not share dishes, drinking glasses, cups, eating utensils, towels, or bedding with other people or pets in your home. After using these items, they should be washed thoroughly with soap and water. Clean all high-touch surfaces everyday High touch surfaces include counters, tabletops, doorknobs, bathroom fixtures, toilets, phones, keyboards, tablets, and bedside tables. Also, clean any surfaces that may have blood, stool, or body fluids on them. Use a household cleaning spray or wipe, according to the label instructions. Labels contain instructions for safe and effective use of the cleaning product including precautions you should take when applying the product, such as wearing gloves and making sure you have good ventilation during use of the product. Monitor your symptoms Seek prompt medical attention if your illness is worsening (e.g., difficulty breathing).Beforeseeking care, call your healthcare provider and tell them that you have, or are being evaluated for, COVID-19. Put on a face mask before you enter the facility. These steps will help the healthcare providers office to keep other people in the office or waiting room from getting infected or exposed. Ask your healthcare provider to call the local or [facility] health department. Persons who are placed under active monitoring or facilitated self- monitoring should follow instructions provided by their local health department or occupational health professionals, as appropriate. When working with your local health department check their available hours. If you have a medical emergency and need to call 911, notify the dispatch p raymundo that you have, or are being evaluated for COVID-19. If possible, put on a face mask before emergency medical services arrive. Discontinuing home isolation Patients with confirmed COVID-19 should remain under home isolation precautions until the risk of secondary transmission to others is thought to be low. The decision to discontinue home isolation precautions should be made on a vmpt-mr-shaq basis, in consultation with healthcare providers and state and local health departments. Coronavirus disease 2019 (COVID-19) is a virus that causes a respiratory illness. It is caused by a coronavirus called 2019 novel coronavirus (2019- nCoV). There are many types of coronavirus. Coronaviruses are a very common cause of bronchitis. They may sometimes cause lung infection(pneumonia). Symptoms can range from mild to severe respiratory illness. These viruses are also foundin some animals. COVID-19 was first found in people in [facility], in late 2018. In 2020, several cases of COVID-19 have been confirmed in the [place] Public health officials are working to find the source. How the virus spreads is not yet fully known. It may be spread through droplets of fluid that a person coughs or sneezes into the air. It may be spread if you touch a surface with virus on it, such as a handle or object, and then touch your mouth. What are the symptoms of COVID-19? Some people have no symptoms or mild symptoms. Symptoms may appear 2 to 14 days after contact with the virus. Symptoms can include: Fever Coughing Trouble breathing What are possible complications from COVID-19? In many cases, this virus can cause infection (pneumonia) in both lungs. In some cases, this can cause . How is COVID-19 diagnosed? Your healthcare provider will ask about your symptoms. He or she will also ask about your recent travel and contact with sick people. Testing for the virus is only done through the CDC. If yourhealthcare provider thinks you may have COVID- 19, he or she will work with your local health department and the CDC on testing. Follow all instructions from your healthcare provider. COVID-19 is diagnosed by: Nasal and throat swab. A cotton-tipped swab is wiped inside your nose or throat. This is done to check for viruses in your nasal mucus. Sputum culture. A small sample of mucus coughed from your lungs (sputum) is collected if you have a cough. It is checked for the virus. How is COVID-19 treated? There is currently no medicine to treat the virus. Treatment is done to help your body while it fights the virus. This is known as supportive care. Supportive care may include: Pain medicine. These include acetaminophen and ibuprofen. They are used to help ease pain and reduce fever. Bed rest. This helps your body fight the illness. For severe illness, you may need to stay in the hospital. Care during severe illness may include: IV (intravenous) fluids.These are given through a vein to help keep your body hydrated. Oxygen. Supplemental oxygen or ventilation with a breathing machine (ventilator) may be given. This is done to keep enough oxygen in your body. Are you at risk for COVID-19? If youve been to a place where people have been sick with this virus, you are at risk for infection. You are at risk if you: Recently traveled to an affected area Had contact with a sick person who recently traveled to this area Had contact with a person who was diagnosed with COVID-19 How can COVID-19 be prevented? There is no vaccine yet. The best prevention is to not have contact with the virus. The CDC advises that people should not travel to areas where there are COVID-19 outbreaks right now for any reason that is not urgent. To help prevent spreading the infection, wash your hands often, or use an alcohol-basedhand head bone grinder. If you are in an area with COVID-19: Wash your hands often. Or use an alcohol-based hand head bone grinder often. Only touch your eyes, nose, or mouth with clean hands. Dont have contact with people who are sick. Follow local instructions about being in public. For example, you may be told to not use public transport for a period of time. Stay away from markets that have live or animals. Wash your hands after touching any animals. Don't touch animals that may be sick. Dont share eating or drinking tools with sick people. Dont kiss someone who is sick. Clean surfaces often with disinfectant. If you were in an area with COVID-19 in the last 14 days: Call your healthcare provider. He or she can talk with local health staff to see what action may be needed. Follow all instructions from your provider. Take your temperature every morning and evening for at least 14 days. This is to check for fever. Keep a record of the readings. Keep watch for symptoms of the virus. Tell your provider right away if you have symptoms. If you were in an area with COVID-19 and have a fever or other symptoms: Dont panic. Keep in mind that other illnesses can cause similar symptoms. Stay away from work, school, and public places. Limit physical contact with family members. Don't kiss anyone or share eating or drinking utensils. Clean surfaces you touch with disinfectant. This is to help prevent the virus from spreading. Call your healthcare provider. Explain that you have been exposed to COVID-19 and have symptoms. Do this before going to any hospital. Wait for instructions. Keep in mind that healthcare staff may wear protective equipment such as masks, gowns, gloves, and eye protection. You may be put in a separate room. This is to prevent the possible virus from spreading. Tell the healthcare staff about recent travel. This includes local travel on public transport. Staff may need to find other people you have been in contact with. Follow all instructions the healthcare staff give you. If you have been diagnosed with COVID-19 Follow all instructions from your healthcare provider. Dont leave your home, except to get medical care. Call your healthcare providers office before going. They can prepare and give you instructions. This will help prevent the virus from spreading. Dont go to work, school, or public areas. Dont use public transport or taxis. Stay away from other people in your home. Have them wear face masks around you. Dont share household items or food. Wear a face mask if you can. This includes at home or in a medical facility. Cover your face with a tissue when you cough or sneeze. Throw the tissue away. Wash your hands. Wash your hands often. Caregivers should: Follow all instructions from healthcare staff. Wear a face mask and protective clothing as advised. Wash hands often. Keep track of the sick persons symptoms. Clean surfaces, fabrics, and laundry thoroughly. Keep other people away from the sick person. When to call your healthcare provider Call your healthcare provider: If youve recently traveled and have symptoms If you have been diagnosed with COVID-19 and your symptoms are worse To learn more To find out more about COVID-19, visit the CDC website at www.cdc.gov/coronavirus/2019-ncov/index.html. 5728-3140 [employer]. [address] [place] [address], [place] [address]. All rights reserved. This information is not intended as a substitute for professional medical care. Always follow your healthcare professional's instructions. This information has been adapted from [employer] Pending Studies at Discharge: No Stand-Alone Forms: [facility], Smoking Cessation Medications and DC Order Prescriptions: New (DME) Oxygen Home Liters Per Minute 1 ea .Route UD Qty: 1 RF: 0 famotidine 20 mg Tablet 20 mg PO BID Qty: 60 RF: 0 Floranex 100 million cell Granules In Packet 1 packet PO TIDM Qty: 12 RF: 1 loperamide 2 mg Capsule 2 mg PO PRN PRN (Reason: loose stool) Qty: 30 RF: 0 pantoprazole 40 mg Tablet,Delayed Release (Dr/Ec) 40 mg PO QAM Qty: 30 RF: 0 amoxicillin-pot clavulanate [Augmentin] 500-125 mg tablet 1 tab PO BID Qty: 30 RF: 0 Continued tolterodine 4 mg Capsule,Extended Release 24hr 4 mg PO HS RF: 0 Discontinued azithromycin 250 mg tablet 250 mg PO UD RF: 0 naproxen 500 mg tablet 500 mg PO BID RF: 0 amoxicillin-pot clavulanate 875-125 mg tablet 1 tab PO BID RF: 0 Discharge Orders: Discharge Order (Routine); Ordered 02/25/20 Ordered By: Rudy Belcher Admission Data Admit Date/Time: 02/15/20 11:40 Attending Provider: Rudy Belcher Admit Provider: Darius Hinojosa Primary Care Provider: Isela Hester Other Providers: Tc Carpio ; Darius Hinojosa ; Hugo Guadarrama ; Hillary Hicks ; Jaspal Prince I. ; Jones Watkins II ; Naheed Lassiter ; Brant Rodrigues ; Lelia Lucero Other Interventions: Discharge Summary Assessment (RN) Last Done: 02/25/20 13:23
== END 2020-02-25 17:03 | disposition home or self-care (01) | DRG 871 ==
LOC: ED 09:00 → 2E 11:40 → SUATTDRO 11:40 → 2E 16:33 → 2S 02-19 17:35

== ENCOUNTER 2024-10-28 11:37 | Observation (INO) ==
--- NOTE | 2024-10-28 11:56 | Emergency Department Note ---
Impression & Plan Ambulatory dysfunction, Vertigo ED Provider Note NAME: CARMEN URBINA AGE: 74 SEX: F : 1950 ARRIVES VIA: Ambulance INFORMANT: Patient, ED PROVIDER(S): Indio Munoz MD CHIEF COMPLAINT: Dizziness, gait imbalance MEDICAL DECISION MAKING: Patient presents with the above. Prior history of vertigo. Sounds similar to prior patient was concerned about the possibility of Lyme's as well. IV was established and blood work was obtained. Good finger-nose and mbgb-cs-pilm so Noncon CT ordered but do not believe she requires angiographies at this time. Blood work also obtained patient was ordered IV fluids IV Zofran as well as p.o. meclizine. The patient blood work is reassuring. The patient's CT head negative. Lyme negative. The patient was up and amatory to the bathroom but when returning got very dizzy again. Patient was ordered 5 of IV Compazine as well as methylprednisolone. Patient was up and ambulatory again but did not do well. Concern for safety and possible fall risk. Urinalysis does show signs of likely infection. Patient had complaint of foul-smelling urine. Patient was ordered IV Rocephin. I did speak with the on-call hospital service Dr. Nolan and the patient was admitted to medicine service. Discussion w/ other healthcare providers: Dr. Nolan inpatient medicine service Prior /Outside records reviewed: none Differential diagnosis: Benign positional vertigo, dehydration, hypovolemia, anemia, infection, hypoglycemia, electrolyte abnormalities, arrhythmia, tox among others were considered. Diagnostics, as interpreted by me: ECG: Normal sinus rhythm, rate of 68, normal intervals, normal axis no ST elevations Q-wave noted in lead III. Cardiac monitoring: An order was placed for continuous cardiac monitoring. The monitor shows a rate of 72 with sinus rhythm. Patient was placed on pulse oximetry Medical decision rules: none Imaging studies: I informally interpreted the patient's chest x-ray does not show obvious pneumonia with formal report to follow. HPI: Patient presents due to concern for feeling generally unwell with lightheadedness and dizziness. The patient states that she got up stood up quickly and felt as though her head was "whooshing to the right." Patient states that she has had vertigo before. Patient denies any falls or trauma and has no head or neck pain. The patient reports that she felt totally fine yesterday. Patient states that she has had decreased appetite. She has had some foul-smelling urine but no back pain or frequency. She denies any urgency. No known sick contacts or any recent travel. She denies any new hearing loss tinnitus or ear pain. No changes in elevation no upper respiratory symptoms. The patient is a smoker with a known history of COPD but denies any shortness of breath. She does suffer from chronic cough but this is unchanged. PAST MEDICAL HISTORY: See Below PAST SURGICAL HISTORY: See Below SOCIAL HISTORY: See Below HOME MEDICATIONS: See Below ALLERGIES: See Below VITALS: See Below PHYSICAL EXAMINATION: GENERAL: NAD, non-toxic. EYE EXAM: Normal conjunctiva. PERRL, no anisocoria and EOM's grossly intact w/o pain. No evidence of obvious nystagmus with range of motion of the eyes. OROPHARYNX: Moist mucus membranes, grossly normal dentition. NECK: Trachea midline, no stridor. No obvious carotid bruits auscultated. LUNGS: Clear to auscultation. Normal chest wall mechanics. HEART: NSR, no MRG. ABDOMEN: Abdomen soft, non-tender, no masses, no rebound or guarding. BACK: No CVA TTP. SKIN: No rashes and no bruising. UPPER EXTREMITIES: Upper extremities are grossly normal. LOWER EXTREMITIES: Grossly normal, no edema. NEURO EXAM: Awake and alert, follows commands, no obvious facial asymmetry, normal speech, moves all 4 extremities. Good kranbr-wl-wymx, no drift and no sensory deficits. Past Med/Surg History Problem List (Updated 10/28/24 @ 16:24 by Indio Munoz MD) Vertigo (Acute) Ambulatory dysfunction (Acute) Multiple pulmonary nodules determined by computed tomography of lung Tobacco use COPD with emphysema Pleural thickening History of tobacco abuse Emphysema lung BRII (acute kidney injury) Pleural effusion, right (Acute) Acute respiratory failure with hypoxia (Acute) Pneumonia due to COVID-19 virus (Acute) Medical History Overactive bladder Right rotator cuff tear s/p repair Hx of cardiac murmur AGE 5 AND NO PROBLEMS History of GI bleed CAUSED BY MOTRIN Surgical History History of arthroplasty of left shoulder ROTATOR CUFF REPAIR Hx of esophagogastroduodenoscopy Hx of colonoscopy Hx of foot surgery LEFT FOOT NEUROMA REMOVED Hx of laparoscopy FOR ECTOPIC Hx of tonsillectomy Hx of LASIK Family History Father Heart disease Social History Smoking Status: Former smoker Tobacco Type: Cigarettes packs per day: 0.5; Cigarettes Per Day: 4 (08/01/2020); Second Hand Exposure: No; Do You Dip or Chew Tobacco: No; Hx Alcohol Use: No Hx Substance Use: No Preferred Language: [place] Communication Ability: Effective Landscaping Specialist Required: No Beliefs That Will Affect Care: None Current Living Situation: Alone Feels Safe at Home: Yes Safety Concerns: Feels Safe At This Time Assistive Devices: Oxygen - Continuous Allergies Allergies Allergy/AdvReac Type Severity Reaction Status Date / Time ibuprofen [From Motrin] AdvReac Mild CAUSED GI Verified 07/13/24 09:39 BLEED PAIN MED Allergy Mild HALLUCINATION Uncoded 07/13/24 09:39 AND NAUSEA - PT DOES NOT WORK Home Meds Home Medications Medication Instructions Recorded Confirmed montelukast 10 mg tablet 10 mg PO QAM 07/21/21 10/28/24 (Singulair) fluticasone propionate 50 1 spray intranasal DAILY 10/28/24 10/28/24 mcg/actuation nasal spray,suspension solifenacin 10 mg tablet 10 mg PO QAM 10/28/24 10/28/24 Previous Rx's Medication Instructions Recorded albuterol sulfate 90 mcg/actuation 2 inh inhalation QID PRN shortness 07/16/24 aerosol inhaler of breath or wheezing #8.5 grams Results & Data (ED) Vital Signs Vital Signs - 24 hr 10/28/24 11:44 10/28/24 12:06 10/28/24 12:53 Temperature 36.6 C Temperature Source Temporal Artery Scan Pulse Rate 74 70 Pulse Rate [Apical] Pulse Rhythm [Apical] Pulse Strength [Apical] Respiratory Rate 20 Respiratory Effort / Characteristics Non-Labored Spontaneous Respiratory Depth Normal Respiratory Pattern Regular Blood Pressure 132/68 Blood Pressure [Right Arm] Blood Pressure Mean 89 Blood Pressure Mean [Right Arm] Blood Pressure Position [Right Arm] Pulse Oximetry 97 88 L Oxygen Delivery Method Room Air Room Air Nasal Cannula Oxygen Flow Rate Sepsis Recent Fever Within 48 Hours No Sepsis New/Unexplained Change in Mental Status N/A Sepsis Action Taken by Nursing No Action Required Oxygen Flow Rate - Titration 2 Pulse Oximetry Post Tiitration 96 10/28/24 12:53 10/28/24 13:27 10/28/24 15:30 Temperature Temperature Source Pulse Rate 72 Pulse Rate [Apical] 77 70 Pulse Rhythm [Apical] Regular Pulse Strength [Apical] Normal Respiratory Rate 18 18 20 Respiratory Effort / Characteristics Non-Labored Spontaneous Non-Labored Respiratory Depth Normal Normal Respiratory Pattern Regular Blood Pressure Blood Pressure [Right Arm] 122/75 134/76 Blood Pressure Mean Blood Pressure Mean [Right Arm] 90 95 Blood Pressure Position [Right Arm] Semi-fowlers Pulse Oximetry 97 98 96 Oxygen Delivery Method Nasal Cannula Nasal Cannula Nasal Cannula Oxygen Flow Rate 2 2 2 Sepsis Recent Fever Within 48 Hours Sepsis New/Unexplained Change in Mental Status Sepsis Action Taken by Nursing Oxygen Flow Rate - Titration Pulse Oximetry Post Tiitration 10/28/24 16:03 Temperature Temperature Source Pulse Rate Pulse Rate [Apical] 80 Pulse Rhythm [Apical] Pulse Strength [Apical] Respiratory Rate 20 Respiratory Effort / Characteristics Non-Labored Respiratory Depth Normal Respiratory Pattern Blood Pressure Blood Pressure [Right Arm] 136/77 Blood Pressure Mean Blood Pressure Mean [Right Arm] 96 Blood Pressure Position [Right Arm] Pulse Oximetry 96 Oxygen Delivery Method Nasal Cannula Oxygen Flow Rate 2 Sepsis Recent Fever Within 48 Hours Sepsis New/Unexplained Change in Mental Status Sepsis Action Taken by Nursing Oxygen Flow Rate - Titration Pulse Oximetry Post Tiitration Home Medications Current Medication List: was personally reviewed by me Laboratory Data Attestation: I reviewed the patient's lab results. 10/29/24 04:20 10/29/24 04:20 Lab Results 10/28/24 10/28/24 Range/Units 11:58 14:00 WBC 7.12 (4.8-10.8) K/ul RBC 5.17 (4.20-5.40) M/uL Hgb 15.9 (12.0-16.0) g/dl Hct 48.5 H (37.0-47.0) % MCV 93.8 (80.0-100.0) fL MCH 30.8 (25.0-34.0) pg MCHC 32.8 (32.0-36.0) g/dL RDW Std Deviation 47.2 H (36.4-46.3) fL RDW Coeff of Steff 13.7 (11.5-14.5) % Plt Count 290 (130-400) K/uL MPV 9.2 L (9.4-12.4) fL Immature Gran % (Auto) 0.3 % Neut % (Auto) 64.8 % Lymph % (Auto) 26.1 % Daniels % (Auto) 7.2 % Eos % (Auto) 0.6 % Baso % (Auto) 1.0 % Neut # (Auto) 4.62 (1.40-6.50) K/uL Lymph # (Auto) 1.86 (1.20-3.40) K/uL Daniels # (Auto) 0.51 (0.11-0.59) K/uL Eos # (Auto) 0.04 (0.00-0.50) K/uL Baso # (Auto) 0.07 (0.00-0.20) K/uL Immature Gran # (Auto) 0.02 (0.01-0.20) K/uL Sodium 140 (136-145) mmol/L Potassium 4.0 (3.5-5.1) mmol/L Chloride 104 (98-107) mmol/L Carbon Dioxide 32 (21-32) mmol/L Anion Gap 4 (3-11) BUN 16 (6-23) mg/dl Creatinine 0.84 (0.6-1.2) mg/dl Est Cr Clr Drug Dosing 40.3 ml/min eGFR 72.87 BUN/Creatinine Ratio 19.0 (10-20) Glucose 105 H (70-99(Fasting)) mg/dl Calcium 9.3 (8.6-10.3) mg/dl Magnesium 2.3 (1.7-2.4) mg/dl Total Bilirubin 0.6 (0.2-1.0) mg/dl AST 15 (13-39) U/L ALT 12 (7-52) U/L Alkaline Phosphatase 76 (34-104) U/L Total Protein 6.9 (6.0-8.3) gm/dl Albumin 4.2 (3.4-5.0) gm/dl Globulin 2.7 (2.5-4.0) gm/dl Albumin/Globulin Ratio 1.6 (0.9-2) TSH 1.961 (0.300-4.500) uIu/ml Urine Color Yellow Urine Appearance Clear (Clear) Urine pH 7.0 (4.5-7.5) Ur Specific [place] 1.004 (1.000-1.030) Urine Protein Negative (Negative) Urine Glucose (UA) Negative (Negative) Urine Ketones Negative (Negative) Urine Blood Negative (Negative) Urine Nitrite Positive A (Negative) Urine Bilirubin Negative (Negative) Urine Urobilinogen Negative (Negative) Ur Leukocyte Esterase 2+ H (Negative) Urine WBC (Auto) 6-10 H (0-5) /hpf Urine RBC (Auto) 0-2 (0-2) /hpf U Hyaline Cast (Auto) 0-2 (0-2) /lpf U Epithel Cells (Auto) 3-5 H (0-2) /hpf Urine Bacteria (Auto) 4+ H (None Seen) Urine Comment Lyme Disease Screen Negative (Negative) Administered Medications Enoxaparin Sodium (Enoxaparin Inj 40 Mg/0.4 Ml Syr) 40 mg SQ Q24H KRYSTAL Stop: 11/27/24 18:59 Last Admin: 10/28/24 19:32 Dose: Not Given Documented By: NAW Discontinued Medications Sodium Chloride (Nss) 1,000 mls @ 999 mls/hr IV .Q1H1M KRYSTAL Stop: 10/28/24 13:15 Last Infusion: 10/28/24 15:33 Dose: Infused Documented By: Admin: 10/28/24 12:28 Dose: 999 mls/hr Documented By: TDM Prochlorperazine (Compazine) 1 mls @ 1 mls/min IV ONE ONE Stop: 10/28/24 14:35 Last Admin: 10/28/24 15:31 Dose: 1 mls/min Documented By: ES Sodium Chloride (Nss) 500 mls @ 999 mls/hr IV .Q31M ONE Stop: 10/28/24 15:09 Last Infusion: 10/28/24 15:59 Dose: Infused Documented By: Admin: 10/28/24 15:33 Dose: 999 mls/hr Documented By: ES Ceftriaxone Sodium (Rocephin) 2,000 mg in 50 mls @ 100 mls/hr IV NOW STA Stop: 10/28/24 16:53 Last Infusion: 10/28/24 18:05 Dose: Infused Documented By: Admin: 10/28/24 17:00 Dose: 100 mls/hr Documented By: SHONDA Meclizine HCl (Meclizine Hcl 25 Mg Tab) 25 mg PO NOW STA Stop: 10/28/24 12:29 Last Admin: 10/28/24 12:33 Dose: 25 mg Documented By: TDM Methylprednisolone (Methylprednisolone 125 Mg/2 Ml Vial) 80 mg IV NOW STA Stop: 10/28/24 14:35 Last Admin: 10/28/24 15:31 Dose: 80 mg Documented By: LUCIA Ondansetron HCl (Ondansetron Inj 2 Mg/Ml 2 Ml Vial) 4 mg IV NOW STA Stop: 10/28/24 12:29 Last Admin: 10/28/24 12:33 Dose: 4 mg Documented By: TDM Imaging Data Radiologist's Impression: Chest X-Ray 10/28/24 12:12 XR chest 1V portable HISTORY: 74 years-old Female weakness acute weakness COMPARISON: 02/24/2020 TECHNIQUE: AP view of the chest FINDINGS: Cardiomediastinal and hilar silhouettes are within normal limits. No pneumothorax, large pleural effusion or overt pulmonary edema. Linear left basilar atelectasis/scarring. Bones appear grossly intact. IMPRESSION: No acute process. ACT 112: Negative or not required by law. The above report was generated using voice recognition software. It may contain grammatical, syntax or spelling errors. Electronically signed by: Ángel Garzon M.D. 10/28/2024 12:30 PM Discharge Plan Visit Data Chief Complaint: Dizziness Stated Complaint: DIZZINESS SINCE 05:30 ED Provider: Indio Munoz Discharge Problem: Ambulatory dysfunction, Vertigo Patient Disposition: Admitted As Inpatient Condition: Good Discharge Instructions Interventions: ED Discharge Assessment Last Done: 10/28/24 18:44
[2024-10-28] MEDS: SODIUM CHLORIDE 0.9% 1,000 ML IV SCH (12:28)
[2024-10-28 12:31] LABS: Hematocrit (blood only) 48.5 % (37.0-47.0); Hemoglobin 15.9 g/dl (12.0-16.0); Immature Granulocytes # (auto) 0.02 K/uL (0.01-0.20); Immature Granulocytes % (auto) 0.3 %; Mean Corpuscular Hemoglobin 30.8 pg (25.0-34.0); Mean Corpuscular Volume 93.8 fL (80.0-100.0); Platelet Count 290 K/uL (130-400); RDW Standard Deviation 47.2 fL (36.4-46.3); Red Blood Count 5.17 M/uL (4.20-5.40); White Blood Count 7.12 K/ul (4.8-10.8)
[2024-10-28] MEDS: ONDANSETRON INJ 2 MG/ML 2 ML VIAL IV STA (12:33)
[2024-10-28] MEDS: MECLIZINE HCL 25 MG TAB PO STA (12:33)
--- NOTE | 2024-10-28 12:33 | XRay Report ---
XR chest 1V portable HISTORY: 74 years-old Female weakness acute weakness COMPARISON: 02/24/2020 TECHNIQUE: AP view of the chest FINDINGS: Cardiomediastinal and hilar silhouettes are within normal limits. No pneumothorax, large pleural effu trevor or overt pulmonary edema. Linear left basilar atelectasis/scarring. Bones appear grossly intact. IMPRESSION: No acute process. ACT 112: Negative or not required by law. The above report was generated using voice recognition software. It may contain grammatical, syntax o r spelling errors. Electronically signed by: Ángel Garzon M.D. 10/28/2024 12:30 PM
[2024-10-28 12:49] LABS: Alanine Aminotransferase 12.0 U/L (7-52); Albumin Globulin Ratio 1.6 (0.9-2); Alkaline Phosphatase 76.0 U/L (34-104); Anion Gap 4.0 (3-11); Bilirubin,Total 0.6 mg/dl (0.2-1.0); Blood Urea Nitrogen 16.0 mg/dl (6-23); Calcium 9.3 mg/dl (8.6-10.3); Carbon Dioxide 32.0 mmol/L (21-32); Chloride 104.0 mmol/L (98-107); Creatinine Clr Calc Pharmacy 40.3 ml/min; Globulin 2.7 gm/dl (2.5-4.0); Glucose 105.0 mg/dl (70-99(Fasting)); Magnesium 2.3 mg/dl (1.7-2.4); Potassium 4.0 mmol/L (3.5-5.1); Sodium 140.0 mmol/L (136-145); Total Protein 6.9 gm/dl (6.0-8.3)
[2024-10-28 13:04] LABS: Thyroid Stimulating Hormone 1.961 uIu/ml (0.300-4.500)
--- NOTE | 2024-10-28 13:29 | CT Scan Report ---
CT head/brain wo con CLINICAL HISTORY: 74 years-old Female with vertigo. Acute vertigo TECHNIQUE: Multiple axial CT images of the head were obtained without contrast. A dose lowering tech nique was utilized adhering to the principles of ALARA. CT DOSE: 547.75 mGy.cm COMPARISON: None. FINDINGS: No acute intracranial hemorrhage, midline shift, intracranial mass, hydrocephalus, territorial ischem ia or abnormal extra-axial collection. Involutional changes with suggestion of mild chronic microvasc ular ischemic disease. Prominent perivascular spaces in the right basal ganglia, image 10 series 2. The calvarium is intact. The paranasal sinuses, mastoid air cells, and middle ear cavities are clear . IMPRESSION: No acute intracranial abnormality. ACT 112: Negative or not required by law. The above report was generated using voice recognition software. It may contain grammatical, syntax o r spelling errors. Electronically signed by: Ángel Garzon M.D. 10/28/2024 1:26 PM
[2024-10-28 15:05] LABS: Appearance Urine Clear (Clear); Bacteria Urine Automated 4+ (None Seen); Cast Urine Automated 0-2 /lpf (0-2); Glucose Urine UA Negative (Negative); RBC Urine Automated 0-2 /hpf (0-2)
[2024-10-28] MEDS: PROCHLORPERAZINE 1 ML IV ONE (15:31)
[2024-10-28] MEDS: SODIUM CHLORIDE 0.9% 500 ML IV ONE (15:33)
--- NOTE | 2024-10-28 16:46 | History & Physical Report ---
Date of Service October 28, 2024 Assessment & Plan (1) Vertigo: (2) Ambulatory dysfunction: Plan Ms Lara is a 74 year old woman/gentleman with past medical history remarkable forCOPD, prediabetes, pulmonary nodules, osteoarthritis of knees, tobacco use admitted for vertigo Patient does not have focal deficits, no speech/swallowing issues, no nystagmus at rest. Symptoms are episodic rather than continuous. Plan for PT.OT for jeanette maneuver #Vertigo, suspect BPPV #ambulatory dysfunction CT head without acute findings unable to perform formal Marie Hallpike 2/2 symptoms occuring upon sitting upright during exam no recent viral illness, or new tinnitus (chronic right hearing loss) no nystagmus while symptoms absent, no other focal deficits epidsodic in nature PT/OT for epleys maneuver admit med tele for now continue meclizine prn Can consider further imaging if jeanette not successful typically indepentent, vertigo impairing balance, fall precautions #COPD follows with [facility] pulm. continue albuterol prn continue montelukast #Prediabetes trend with am bmp #Tobacco use disorder declined resources, declined nictotine patch #Abnormal UA #Urge incontinence of urine - switch from detrol to vesicare. currently on solifenacin, hold for now UA with =nitrate and bacteria, s/p ctx in ed, will continued x3, follow cx dvt ppx lovenox admit med tele Admission and Anticipated Discharge Date Admission Date: Time spent evaluating patient, direct bedside care, chart review, placing orders, interpretation of diagnostic studies, discussion with consultants, patient, and family members, as well as other required patient management activities is 75 minutes. History of Present Illness Chief Complaint: vertigo Primary Care Provider: Isela Hester DO Ms Lara is a 74 year old woman/gentleman with past medical history remarkable forCOPD, prediabetes, pulmonary nodules, osteoarthritis of knees, tobacco use presented to [facility] ED due to vertigo Patient reports awakening this morning with sudden room spinning upon sitting upright. She states that once she lays in a position for some time, she feels ok and the spinning stops, but when she begins to lay flat she notes the entire room spins and the symptoms recurr once she sits up. These symptoms make it difficult for her to stand. Patient tried to sit forward for exam and symptoms returned, prompting her to lay back and close her eyes. She denies nausea, vomiting, any other focal deficits. She has experienced lightheadedness previously, but has never experienced vertigo or room spinning like this before. She smokes 1PPD and denies a nictotine patch. She reports chronic smokers cough. She reports newly foul smelling urine, but no other symptoms at this time. She denies etoh or illicits. In the ED, vitals were notable for BP of 120-130s HR of 80s and O2 sat of high 90s on room air, afebriled Imaging revealed no acute intracranial abnormality EKG qtc 421, nsr, low voltage qrs ED interventions: ctx, compazine, methylpred, meclizine Patient to be admitted to med/tele for further evaluation and management of vertigo Allergies Allergy/AdvReac Type Severity Reaction Status Date / Time ibuprofen [From Motrin] AdvReac Mild CAUSED GI Verified 07/13/24 09:39 BLEED PAIN MED Allergy Mild HALLUCINATION Uncoded 07/13/24 09:39 AND NAUSEA - PT DOES NOT WORK Home Medications Medication Instructions Recorded Confirmed Type montelukast 10 mg tablet 10 mg PO QAM 07/21/21 10/28/24 History (Singulair) albuterol sulfate 90 mcg/actuation 2 inh inhalation QID PRN shortness 07/16/24 10/28/24 Rx aerosol inhaler of breath or wheezing #8.5 grams fluticasone propionate 50 1 spray intranasal DAILY 10/28/24 10/28/24 History mcg/actuation nasal spray,suspension solifenacin 10 mg tablet 10 mg PO QAM 10/28/24 10/28/24 History Past Med/Surg History Problem List (Updated 10/28/24 @ 16:24 by Indio Munoz MD) Vertigo (Acute) Ambulatory dysfunction (Acute) Multiple pulmonary nodules determined by computed tomography of lung Tobacco use COPD with emphysema Pleural thickening History of tobacco abuse Emphysema lung BRII (acute kidney injury) Pleural effusion, right (Acute) Acute respiratory failure with hypoxia (Acute) Pneumonia due to COVID-19 virus (Acute) Medical History Overactive bladder Right rotator cuff tear s/p repair Hx of cardiac murmur AGE 5 AND NO PROBLEMS History of GI bleed CAUSED BY MOTRIN Surgical History History of arthroplasty of left shoulder ROTATOR CUFF REPAIR Hx of esophagogastroduodenoscopy Hx of colonoscopy Hx of foot surgery LEFT FOOT NEUROMA REMOVED Hx of laparoscopy FOR ECTOPIC Hx of tonsillectomy Hx of LASIK Family History Father Heart disease Social History Smoking Status: Current every day smoker Tobacco Type: Cigarettes packs per day: 0.5; Cigarettes Per Day: 4 (08/01/2020); Second Hand Exposure: No; Do You Dip or Chew Tobacco: No; Hx Alcohol Use: No Hx Substance Use: No Preferred Language: Kyrgyz Communication Ability: Effective Siebel Solution Architect Required: No Beliefs That Will Affect Care: None Current Living Situation: Alone Feels Safe at Home: Yes Assistive Devices: Oxygen - Continuous Review of Systems Review of Systems: Constitutional: (-) fever/chills, (-) recent loss of weight, (-) appetite changes, (-) night sweats. Head: (-) headache, (-) dizziness. Eye: (-) blurring of vision, (-) double vision, (-) redness. Ear: (-) hearing loss, (-) discharge, (+) vertigo Nose: (-) discharge, (-) bleeding, (-) congestion, (-) post nasal drip. Throat: (-) sore throat, (-) hoarseness of voice, (-) odynophagia. Cardiovascular: (-) chest pain, (-) palpitations, (-) syncope, (-) orthopnea, (- ) PND, (-) leg swelling. Respiratory: (-) shortness of breath, (-) cough, (-) wheezing, (-) hemoptysis. Neuro: (-) weakness in extremities, (-) numbness, (-) tingling, (-) tremor. Gastrointestinal: (-) belly pain, (-) belly distension, (-) nausea, (-) vomiting, (-) diarrhea, (-) constipation Genitourinary: (-) hematuria, (-) dysuria, (-) polyuria, (-) hesitancy, (-) frequency, (-) urinary incontinence. Musculoskeletal: (-) myalgia, (-) arthralgia. Skin: (-) rashes. Endocrine: (-) heat/cold intolerance. Psychiatry: (-) depression, (-) hallucination. Physical Exam Physical Exam: GENERAL APPEARANCE: AxOx4, generally well-appearing woman, does appear mildly uncomfortable HEENT: NC, AT. MMM. EOMI, clear conjunctiva, oropharynx clear. No nystagmus on exam, however full exam limited secondary to reproduction of symptoms sitting upward for auscultation NECK: Supple without lymphadenopathy. No stiffness or restricted ROM. HEART: Normal rate and regular rhythm, normal S1/S1, no m/r/g LUNGS: CTAB, moving air well. No crackles or wheezes are heard. ABDOMEN: Soft, nontender, nondistended with good bowel sounds heard. BACK: No CVAT, no obvious deformity. EXTREMITIES: Without cyanosis, clubbing or edema. NEUROLOGICAL: Grossly nonfocal. Alert and oriented, moving all 4 extremities. CN II-XII in tact Skin: Warm and dry without any rash. Results & Data Results & Data Vital Signs (Past 12 Hours) Vital Signs Temp Pulse Pulse Resp BP BP Pulse Ox 10/28/24 16:03 80 20 136/77 96 10/28/24 15:30 70 20 134/76 96 10/28/24 13:27 77 18 122/75 98 10/28/24 12:53 72 18 97 10/28/24 12:53 88 L 10/28/24 12:06 70 10/28/24 11:44 36.6 C 74 20 132/68 97 O2 Del Method O2 Flow Rate 10/28/24 16:03 Nasal Cannula 2 10/28/24 15:30 Nasal Cannula 2 10/28/24 13:27 Nasal Cannula 2 10/28/24 12:53 Nasal Cannula 2 10/28/24 12:53 Room Air, Nasal Cannula 10/28/24 12:06 10/28/24 11:44 Room Air Laboratory Results Short CBC 10/28/24 Range/Units 11:58 WBC 7.12 (4.8-10.8) K/ul Hgb 15.9 (12.0-16.0) g/dl Hct 48.5 H (37.0-47.0) % Plt Count 290 (130-400) K/uL BMP 10/28/24 11:58 Sodium 140 Potassium 4.0 Chloride 104 Carbon Dioxide 32 BUN 16 Creatinine 0.84 Glucose 105 H Calcium 9.3 Liver Function 10/28/24 Range/Units 11:58 Total Bilirubin 0.6 (0.2-1.0) mg/dl AST 15 (13-39) U/L ALT 12 (7-52) U/L Alkaline Phosphatase 76 (34-104) U/L Albumin 4.2 (3.4-5.0) gm/dl Urine 10/28/24 Range/Units 14:00 Urine Color Yellow Urine Appearance Clear (Clear) Urine pH 7.0 (4.5-7.5) Ur Specific [place] 1.004 (1.000-1.030) Urine Protein Negative (Negative) Urine Glucose (UA) Negative (Negative) Medications Administered Home Medications Medication Instructions Recorded Confirmed Last Taken tolterodine 4 mg capsule,extended 4 mg PO HS 01/18/19 10/28/24 02/13/20 release 24 hr Oxygen Home See Rx Instructions .Route 04/11/20 07/13/24 Unknown .COMPLEX #1 ea montelukast 10 mg tablet 10 mg PO QAM 07/21/21 10/28/24 Unknown (Singulair) albuterol sulfate 90 mcg/actuation 2 inh inhalation QID PRN shortness 07/16/24 10/28/24 Unknown aerosol inhaler of breath or wheezing #8.5 grams solifenacin 10 mg tablet 10 mg PO QAM 10/28/24 10/28/24 Unknown
[2024-10-28] MEDS: cefTRIAXone SODIUM 2,000 MG/50 ML BAG IV STA (17:00)
[2024-10-28] MEDS ORDERED: ONDANSETRON INJ 2 MG/ML 2 ML VIAL IV PRN (18:44)
[2024-10-28] MEDS ORDERED: ALBUTEROL HFA 8 GM INHALER INH PRN (18:44)
[2024-10-28] MEDS ORDERED: MELATONIN 3 MG TAB PO PRN (18:44)
[2024-10-28] MEDS ORDERED: ACETAMINOPHEN 325 MG TAB PO PRN (18:44)
[2024-10-28] MEDS: ENOXAPARIN INJ 40 MG/0.4 ML SYR SQ SCH (19:32)
[2024-10-29 05:15] LABS: Hematocrit (blood only) 47.2 % (37.0-47.0); Hemoglobin 15.6 g/dl (12.0-16.0); Mean Corpuscular Hemoglobin 31.1 pg (25.0-34.0); Mean Corpuscular Volume 94.0 fL (80.0-100.0); Platelet Count 262 K/uL (130-400); RDW Standard Deviation 47.3 fL (36.4-46.3); Red Blood Count 5.02 M/uL (4.20-5.40); White Blood Count 8.17 K/ul (4.8-10.8)
[2024-10-29 05:26] LABS: Anion Gap 7.0 (3-11); Blood Urea Nitrogen 14.0 mg/dl (6-23); Calcium 8.9 mg/dl (8.6-10.3); Carbon Dioxide 28.0 mmol/L (21-32); Chloride 104.0 mmol/L (98-107); Creatinine Clr Calc Pharmacy 39.0 ml/min; Glucose 112.0 mg/dl (70-99(Fasting)); Magnesium 2.1 mg/dl (1.7-2.4); Potassium 4.3 mmol/L (3.5-5.1); Sodium 139.0 mmol/L (136-145)
--- NOTE | 2024-10-29 08:20 | Electrocardiogram Report ---
Test Reason : Blood Pressure : */* mmHG Vent. Rate : 68 BPM Atrial Rate : 68 BPM P-R Int : 152 ms QRS Dur : 86 ms QT Int : 396 ms P-R-T Axes : -25 -9 -23 degrees QTcB Int : 421 ms Normal sinus rhythm Low voltage QRS Possible Inferior infarct , age undetermined Cannot rule out Anterior infarct , age undetermined Abnormal ECG When compared with ECG of 17-Feb-2020 10:08, Borderline criteria for Inferior infarct are now Present Nonspecific T wave abnormality, worse in Inferior leads Confirmed by Megan Briscoe (Ynes) on 10/29/2024 8:19:59 AM Referred By: REFERRED SELF Confirmed By: Megan Briscoe
[2024-10-29] MEDS: OXYBUTYNIN CHLORIDE XL 5 MG TABCR PO SCH (09:17)
[2024-10-29] MEDS: MONTELUKAST SODIUM 10 MG TABLET PO SCH (09:17)
[2024-10-29] MEDS: FLUTICASONE PROPIONATE NA SPR 16 GM BTL NAE SCH (09:18)
[2024-10-29] MEDS: GADOBUTROL 65ML VIAL IV ONE (13:26)
--- NOTE | 2024-10-29 13:51 | Magnetic Resonance Report ---
MR brain wo/w con HISTORY: 74 years-old Female Dizziness, stoke like symptoms acute stroke like symptoms COMPARISON: Head CT 10/28/2024 TECHNIQUE: Multiplanar multisequence MRI of the brain was obtained with and without IV contrast FINDINGS: No restricted diffusion to suggest acute or subacute infarct. Degenerative changes of the spine. Midl ine structures are unremarkable. No acute intracranial hemorrhage, midline shift, abnormal extra-axia l collection, hydrocephalus or intra-axial mass. Involutional changes with mild patchy T2/FLAIR hyper intense foci throughout the white matter. Cerebral venous sinuses and major arterial flow voids appear patent. Skull, orbits and soft tissues a re unremarkable. Mastoid air cells and paranasal sinuses are within normal limits. No abnormal enhanc ement. IMPRESSION: 1. No acute intracranial abnormality. No acute or subacute infarct. 2. Involutional changes with mild chronic microvascular ischemic disease. 3. No abnormal enhancement. ACT 112: Negative or not required by law. The above report was generated using voice recognition software. It may contain grammatical, syntax o r spelling errors. Electronically signed by: Ángel Garzon M.D. 10/29/2024 1:50 PM
--- NOTE | 2024-10-29 16:04 | Hospitalist Progress Note ---
Date of Service October 29, 2024 Assessment & Plan (1) Vertigo: (2) Ambulatory dysfunction: Plan Ms Lara is a 74 year old woman/gentleman with past medical history remarkable forCOPD, prediabetes, pulmonary nodules, osteoarthritis of knees, tobacco use admitted for vertigo Patient does not have focal deficits, no speech/swallowing issues, no nystagmus at rest. Symptoms are episodic rather than continuous. Plan for PT.OT for jeanette maneuver Vertigo, suspect BPPV Ambulatory dysfunction --MRI Brain:No acute intracranial abnormality. No acute or subacute infarct. Involutional changes with mild chronic microvascular ischemic disease. No abnormal enhancement. -- Meclizine as needed PT OT, fall precautions Monitor on telemetry for any arrhythmias Orthostatics within normal limits Urinary tract infection--POA --Urine culture growing E. coli --Continue IV Rocephin COPD Currently no signs of exacerbation Follows with [facility] pulm. continue albuterol prn continue montelukast Prediabetes Monitor Tobacco use disorder declined resources, declined nictotine patch Counseled to quit smoking H/O Urge incontinence of urine switch from detrol to vesicare. currently on solifenacin, hold for now Monitor for any retention DVT Px: Lovenox SQ CODE STATUS Full code Admission and Anticipated Discharge Date Admission Date: October 28, 2024 Subjective Patient is seen and examined at bedside States that her vertigo symptoms resolved Still has some balance issues especially with ambulation Also states having some facial tingling sensation Denies any chest pain, nausea, vomiting, abdominal pain, dyspnea, focal weakness, dysarthria, change in vision, dysphagia No other complaints today Review of Systems Review of Systems: All systems reviewed & are unremarkable except as noted in Subjective Physical Exam Physical Exam: Physical Exam: Vitals signs as noted above General Appearance: Thin, frail, no apparent distress Head: normocephalic, Atraumatic Eyes: normal inspection, EOMI Neck: supple, Trachea midline Respiratory/Chest: Normal breath sounds, CTA, No accessory muscle use Cardiovascular: S1, S2, No murmur Abdomen/GI:Soft, Non tender, Bowel sounds present Extremities/Musculoskeletal:normal inspection, no edema Neurologic/Psych:AAOX3, grossly no focal neurological deficits Skin: normal color, warm Results & Data Results & Data Vital Signs (Past 12 Hours) Vital Signs Temp Pulse Pulse Resp BP BP Pulse Ox 10/29/24 14:27 10/29/24 14:19 36.5 C 72 20 105/59 L 95 10/29/24 12:00 76 20 123/66 93 10/29/24 10:16 68 18 114/62 90 10/29/24 08:43 10/29/24 07:30 70 10/29/24 07:05 66 18 111/71 10/29/24 06:00 70 15 108/62 Pulse Ox O2 Del Method O2 Del Method 10/29/24 14:27 Room Air 10/29/24 14:19 Room Air 10/29/24 12:00 Room Air 10/29/24 10:16 Room Air 10/29/24 08:43 92 Room Air 10/29/24 07:30 10/29/24 07:05 10/29/24 06:00 Laboratory Results Short CBC 10/29/24 Range/Units 04:20 WBC 8.17 (4.8-10.8) K/ul Hgb 15.6 (12.0-16.0) g/dl Hct 47.2 H (37.0-47.0) % Plt Count 262 (130-400) K/uL BMP 10/29/24 04:20 Sodium 139 Potassium 4.3 Chloride 104 Carbon Dioxide 28 BUN 14 Creatinine 0.87 Glucose 112 H Calcium 8.9
[2024-10-29] MEDS: SODIUM CHLORIDE 0.9% 1,000 ML IV ONE (16:34)
[2024-10-29] MEDS: cefTRIAXone SODIUM 1,000 MG/50 ML BAG IV SCH (16:34)
[2024-10-29] MEDS: MECLIZINE HCL 25 MG TAB PO PRN (21:54)
[2024-10-30] MEDS: cefTRIAXone SODIUM 1,000 MG/50 ML BAG IV SCH (11:36)
[2024-10-30 11:57] VITALS: BP 119/77; RESP 18; TEMP 97.3; O2SAT 93
--- NOTE | 2024-10-30 12:25 | Hospitalist Progress Note ---
Date of Service October 30, 2024 Assessment & Plan (1) Vertigo: (2) Ambulatory dysfunction: Plan Ms Lara is a 74 year old woman/gentleman with past medical history remarkable forCOPD, prediabetes, pulmonary nodules, osteoarthritis of knees, tobacco use admitted for vertigo Patient does not have focal deficits, no speech/swallowing issues, no nystagmus at rest. Symptoms are episodic rather than continuous. Plan for PT.OT for jeanette maneuver Vertigo, suspect BPPV Ambulatory dysfunction --MRI Brain:No acute intracranial abnormality. No acute or subacute infarct. Involutional changes with mild chronic microvascular ischemic disease. No abnormal enhancement. -- Meclizine as needed PT OT, fall precautions Monitor on telemetry for any arrhythmias Orthostatics within normal limits Vertigo resolved Advised to follow-up with ENT as outpatient Urinary tract infection--POA --Urine culture growing E. coli --Continue IV Rocephin Day #2 Plan to transition to oral antibiotics to complete the course on discharge COPD Currently no signs of exacerbation Follows with [facility] pulm. continue albuterol prn continue montelukast Prediabetes Monitor Tobacco use disorder declined resources, declined nictotine patch Counseled to quit smoking H/O Urge incontinence of urine PCP switched from detrol to vesicare. Monitor for any retention DVT Px: Lovenox SQ CODE STATUS Full code Disposition Home Admission and Anticipated Discharge Date Admission Date: October 28, 2024 Subjective Patient is seen and examined at bedside Patient states feeling a lot better today Vertigo resolved Was able to ambulate better with no balance issues Still has some tingling sensation of her face but otherwise no other complaints Denies any chest pain, nausea, vomiting, abdominal pain, dyspnea, focal weakness, dysarthria, change in vision, dysphagia Review of Systems Review of Systems: All systems reviewed & are unremarkable except as noted in Subjective Physical Exam Physical Exam: Physical Exam: Vitals signs as noted above General Appearance: Thin, frail, no apparent distress Head: normocephalic, Atraumatic Eyes: normal inspection, EOMI Neck: supple, Trachea midline Respiratory/Chest: Normal breath sounds, CTA, No accessory muscle use Cardiovascular: S1, S2, No murmur Abdomen/GI:Soft, Non tender, Bowel sounds present Extremities/Musculoskeletal:normal inspection, no edema Neurologic/Psych:AAOX3, grossly no focal neurological deficits Skin: normal color, warm Results & Data Results & Data Vital Signs (Past 12 Hours) Vital Signs Temp Pulse Pulse Resp BP BP Pulse Ox 10/30/24 11:56 36.3 C L 69 18 119/77 93 10/30/24 08:18 36.7 C 60 17 118/75 92 10/30/24 05:36 68 10/30/24 02:31 36.3 C L 79 18 130/72 92 O2 Del Method 10/30/24 11:56 Room Air 10/30/24 08:18 Room Air 10/30/24 05:36 10/30/24 02:31 Room Air
[2024-10-30 12:34] LABS: Anion Gap 5.0 (3-11); Blood Urea Nitrogen 20.0 mg/dl (6-23); Calcium 8.7 mg/dl (8.6-10.3); Carbon Dioxide 29.0 mmol/L (21-32); Chloride 104.0 mmol/L (98-107); Creatinine Clr Calc Pharmacy 38.1 ml/min; Glucose 127.0 mg/dl (70-99(Fasting)); Potassium 4.0 mmol/L (3.5-5.1); Sodium 138.0 mmol/L (136-145)
--- NOTE | 2024-10-30 14:24 | Discharge Summary ---
Date of Service October 30, 2024 Admission HPI Per Admitting Provider Ms Lara is a 74 year old woman/gentleman with past medical history remarkable forCOPD, prediabetes, pulmonary nodules, osteoarthritis of knees, tobacco use presented to [facility] due to vertigo Patient reports awakening this morning with sudden room spinning upon sitting upright. She states that once she lays in a position for some time, she feels ok and the spinning stops, but when she begins to lay flat she notes the entire room spins and the symptoms recurr once she sits up. These symptoms make it difficult for her to stand. Patient tried to sit forward for exam and symptoms returned, prompting her to lay back and close her eyes. She denies nausea, vomiting, any other focal deficits. She has experienced lightheadedness previously, but has never experienced vertigo or room spinning like this before. She smokes 1PPD and denies a nictotine patch. She reports chronic smokers cough. She reports newly foul smelling urine, but no other symptoms at this time. She denies etoh or illicits. In the ED, vitals were notable for BP of 120-130s HR of 80s and O2 sat of high 90s on room air, afebriled Imaging revealed no acute intracranial abnormality EKG qtc 421, nsr, low voltage qrs ED interventions: ctx, compazine, methylpred, meclizine Patient to be admitted to [facility] for further evaluation and management of vertigo Admission Exam Per Admitting Provider GENERAL APPEARANCE: AxOx4, generally well-appearing woman, does appear mildly uncomfortable HEENT: NC, AT. MMM. EOMI, clear conjunctiva, oropharynx clear. No nystagmus on exam, however full exam limited secondary to reproduction of symptoms sitting upward for auscultation NECK: Supple without lymphadenopathy. No stiffness or restricted ROM. HEART: Normal rate and regular rhythm, normal S1/S1, no m/r/g LUNGS: CTAB, moving air well. No crackles or wheezes are heard. ABDOMEN: Soft, nontender, nondistended with good bowel sounds heard. BACK: No CVAT, no obvious deformity. EXTREMITIES: Without cyanosis, clubbing or edema. NEUROLOGICAL: Grossly nonfocal. Alert and oriented, moving all 4 extremities. CN II-XII in tact Skin: Warm and dry without any rash. Principal Diagnosis Vertigo Urinary tract infection Discharge Data Allergies Allergy/AdvReac Type Severity Reaction Status Date / Time ibuprofen [From Motrin] AdvReac Mild CAUSED GI Verified 07/13/24 09:39 BLEED PAIN MED Allergy Mild HALLUCINATION Uncoded 07/13/24 09:39 AND NAUSEA - PT DOES NOT WORK Consultations 10/28/24 16:24 ED Decision to Admit Stat Procedures Performed Laboratory Results WBC 8.17 K/ul (4.8-10.8) 10/29/24 04:20 RBC 5.02 M/uL (4.20-5.40) 10/29/24 04:20 Hgb 15.6 g/dl (12.0-16.0) 10/29/24 04:20 Hct 47.2 % (37.0-47.0) H 10/29/24 04:20 MCV 94.0 fL (80.0-100.0) 10/29/24 04:20 MCH 31.1 pg (25.0-34.0) 10/29/24 04:20 MCHC 33.1 g/dL (32.0-36.0) 10/29/24 04:20 RDW Std Deviation 47.3 fL (36.4-46.3) H 10/29/24 04:20 RDW Coeff of Steff 13.6 % (11.5-14.5) 10/29/24 04:20 Plt Count 262 K/uL (130-400) 10/29/24 04:20 MPV 9.2 fL (9.4-12.4) L 10/29/24 04:20 Immature Gran % (Auto) 0.3 % 10/28/24 11:58 Neut % (Auto) 64.8 % 10/28/24 11:58 Lymph % (Auto) 26.1 % 10/28/24 11:58 [place] % (Auto) 7.2 % 10/28/24 11:58 Eos % (Auto) 0.6 % 10/28/24 11:58 Baso % (Auto) 1.0 % 10/28/24 11:58 Neut # (Auto) 4.62 K/uL (1.40-6.50) 10/28/24 11:58 Lymph # (Auto) 1.86 K/uL (1.20-3.40) 10/28/24 11:58 [place] # (Auto) 0.51 K/uL (0.11-0.59) 10/28/24 11:58 Eos # (Auto) 0.04 K/uL (0.00-0.50) 10/28/24 11:58 Baso # (Auto) 0.07 K/uL (0.00-0.20) 10/28/24 11:58 Immature Gran # (Auto) 0.02 K/uL (0.01-0.20) 10/28/24 11:58 Sodium 138 mmol/L (136-145) 10/30/24 11:46 Potassium 4.0 mmol/L (3.5-5.1) 10/30/24 11:46 Chloride 104 mmol/L (98-107) 10/30/24 11:46 Carbon Dioxide 29 mmol/L (21-32) 10/30/24 11:46 Anion Gap 5 (3-11) 10/30/24 11:46 BUN 20 mg/dl (6-23) 10/30/24 11:46 Creatinine 0.89 mg/dl (0.6-1.2) 10/30/24 11:46 Est Cr Clr Drug Dosing 38.1 ml/min 10/30/24 11:46 eGFR 67.99 10/30/24 11:46 BUN/Creatinine Ratio 22.5 (10-20) H 10/30/24 11:46 Glucose 127 mg/dl (70-99(Fasting)) H 10/30/24 11:46 Calcium 8.7 mg/dl (8.6-10.3) 10/30/24 11:46 Phosphorus 4.0 mg/dl (2.5-4.9) 10/29/24 04:20 Magnesium 2.1 mg/dl (1.7-2.4) 10/29/24 04:20 Total Bilirubin 0.6 mg/dl (0.2-1.0) 10/28/24 11:58 AST 15 U/L (13-39) 10/28/24 11:58 ALT 12 U/L (7-52) 10/28/24 11:58 Alkaline Phosphatase 76 U/L (34-104) 10/28/24 11:58 Total Protein 6.9 gm/dl (6.0-8.3) 10/28/24 11:58 Albumin 4.2 gm/dl (3.4-5.0) 10/28/24 11:58 Globulin 2.7 gm/dl (2.5-4.0) 10/28/24 11:58 Albumin/Globulin Ratio 1.6 (0.9-2) 10/28/24 11:58 TSH 1.961 uIu/ml (0.300-4.500) 10/28/24 11:58 Urine Color Yellow 10/28/24 14:00 Urine Appearance Clear (Clear) 10/28/24 14:00 Urine pH 7.0 (4.5-7.5) 10/28/24 14:00 Ur Specific [place] 1.004 (1.000-1.030) 10/28/24 14:00 Urine Protein Negative (Negative) 10/28/24 14:00 Urine Glucose (UA) Negative (Negative) 10/28/24 14:00 Urine Ketones Negative (Negative) 10/28/24 14:00 Urine Blood Negative (Negative) 10/28/24 14:00 Urine Nitrite Positive (Negative) A 10/28/24 14:00 Urine Bilirubin Negative (Negative) 10/28/24 14:00 Urine Urobilinogen Negative (Negative) 10/28/24 14:00 Ur Leukocyte Esterase 2+ (Negative) H 10/28/24 14:00 Urine WBC (Auto) 6-10 /hpf (0-5) H 10/28/24 14:00 Urine RBC (Auto) 0-2 /hpf (0-2) 10/28/24 14:00 U Hyaline Cast (Auto) 0-2 /lpf (0-2) 10/28/24 14:00 U Epithel Cells (Auto) 3-5 /hpf (0-2) H 10/28/24 14:00 Urine Bacteria (Auto) 4+ (None Seen) H 10/28/24 14:00 Urine Comment 10/28/24 14:00 Lyme Disease Screen Negative (Negative) 10/28/24 11:58 Impressions Chest X-Ray 10/28/24 12:12 XR chest 1V portable HISTORY: 74 years-old Female weakness acute weakness COMPARISON: 02/24/2020 TECHNIQUE: AP view of the chest FINDINGS: Cardiomediastinal and hilar silhouettes are within normal limits. No pneumothorax, large pleural effusion or overt pulmonary edema. Linear left basilar atelectasis/scarring. Bones appear grossly intact. IMPRESSION: No acute process. ACT 112: Negative or not required by law. The above report was generated using voice recognition software. It may contain grammatical, syntax or spelling errors. Electronically signed by: Ángel Garzon M.D. 10/28/2024 12:[address] 10/28/24 12:28 CT head/brain wo con CLINICAL HISTORY: 74 years-old Female with vertigo. Acute vertigo TECHNIQUE: Multiple axial CT images of the head were obtained without contrast. A dose lowering technique was utilized adhering to the principles of ALARA. CT DOSE: 547.75 mGy.cm COMPARISON: None. FINDINGS: No acute intracranial hemorrhage, midline shift, intracranial mass, hydrocephalus, territorial ischemia or abnormal extra-axial collection. Involutional changes with suggestion of mild chronic microvascular ischemic dise ase. Prominent perivascular spaces in the right basal ganglia, image 10 series 2. The calvarium is intact. The paranasal sinuses, mastoid air cells, and middle ear cavities are clear. IMPRESSION: No acute intracranial abnormality. ACT 112: Negative or not required by law. The above report was generated using voice recognition software. It may contain grammatical, syntax or spelling errors. Electronically signed by: Ángel Garzon M.D. 10/28/2024 1:26 PM Brain MRI 10/29/24 11:49 MR brain wo/w con HISTORY: 74 years-old Female Dizziness, stoke like symptoms acute stroke like symptoms COMPARISON: Head CT 10/28/2024 TECHNIQUE: Multiplanar multisequence MRI of the brain was obtained with and without IV contrast FINDINGS: No restricted diffusion to suggest acute or subacute infarct. Degenerative changes of the spine. Midline structures are unremarkable. No acute intracranial hemorrhage, midline shift, abnormal extra-axial collection, hydrocephalus or intra-axial mass. Involutional changes with mild patchy T2/FLAIR hyperintense foci throughout the white matter. Cerebral venous sinuses and major arterial flow voids appear patent. Skull, orbits and soft tissues are unremarkable. Mastoid air cells and paranasal sinuses are within normal limits. No abnormal enhancement. IMPRESSION: 1. No acute intracranial abnormality. No acute or subacute infarct. 2. Involutional changes with mild chronic microvascular ischemic disease. 3. No abnormal enhancement. ACT 112: Negative or not required by law. The above report was generated using voice recognition software. It may contain grammatical, syntax or spelling errors. Electronically signed by: Ángel Garzon M.D. 10/29/2024 1:50 PM Ordered Studies 10/28/24 12:28 CT head/brain wo con Stat 10/29/24 11:49 MRI Brain [MR brain wo/w con] Urgent Hospital Course (1) Vertigo: (2) Ambulatory dysfunction: Plan Ms Lara is a 74 year old woman/gentleman with past medical history remarkable forCOPD, prediabetes, pulmonary nodules, osteoarthritis of knees, tobacco use admitted for vertigo Patient does not have focal deficits, no speech/swallowing issues, no nystagmus at rest. Symptoms are episodic rather than continuous. Plan for PT.OT for jeanette maneuver Vertigo, suspect BPPV Ambulatory dysfunction --MRI Brain:No acute intracranial abnormality. No acute or subacute infarct. Involutional changes with mild chronic microvascular ischemic disease. No abnormal enhancement. -- Meclizine as needed PT OT, fall precautions Monitor on telemetry for any arrhythmias Orthostatics within normal limits Vertigo resolved Advised to follow-up with ENT as outpatient Urinary tract infection--POA --Urine culture growing E. coli --Continue IV Rocephin Day #2 Plan to transition to oral antibiotics to complete the course on discharge COPD Currently no signs of exacerbation Follows with [facility] pulm. continue albuterol prn continue montelukast Prediabetes Monitor Tobacco use disorder declined resources, declined nictotine patch Counseled to quit smoking H/O Urge incontinence of urine PCP switched from detrol to vesicare. Monitor for any retention DVT Px: Lovenox SQ CODE STATUS Full code Disposition Home Total Time Total Time Spent Total Time Spent (In Minutes): 52 minutes Discharge Plan Discharge Items Patient Disposition: Home - Self-Care Reason For Visit: VERTIGO Discharge Diagnosis: Vertigo Urinary tract infection Condition on Discharge: Good Activity: Per Instructions section Exercise/Sports: Gradually increase as tolerated Non-emergency contact: Primary Care Provider and Specialist Call non-emergency contact if: you have any medication questions, your symptoms worsen, your pain is concerning for you and you have a fever Follow-up/Referrals: Isela Hester DO [Primary Care Provider] - (Date & Time 11/05/2024 9:00 AM Provider: Quentin Arias MD Family Medicine [facility] ) Diet: Heart Healthy Addtl Attending Provider Instructions: --Follow-up with your primary care physician Dr. Hester in 1 week --Continue following with your ENT if you have recurrence of vertigo --Complete the antibiotic course cefuroxime as prescribed for urinary tract infection. Seek immediate medical attention if your symptoms reoccur or worsen Please review medication list provided on discharge for any medication changes as instructed. Please call if you have any questions or problems. You can reach a [facility] hospitalist on duty at [facility] 24 hours a day by calling [phone] Pending Studies at Discharge: No Stand-Alone Forms: My [facility], Smoking Cessation Medications and DC Order Prescriptions: New meclizine 25 mg Tablet 25 mg PO Q6H PRN (Reason: vertigo) Qty: 30 0RF cefuroxime axetil 500 mg tablet 500 mg PO BID Qty: 10 0RF Continued montelukast [Singulair] 10 mg tablet 10 mg PO QAM albuterol sulfate 90 mcg/actuation HFA aerosol inhaler 2 inh inhalation QID PRN (Reason: shortness of breath or wheezing) Qty: 8.5 3RF solifenacin 10 mg tablet 10 mg PO QAM fluticasone propionate [Flonase] 50 mcg/actuation [place],Suspension 1 spray INTRANASAL DAILY Rx Instructions: administer into each nostril Discharge Orders: Discharge Order (Routine); Ordered 10/30/24 Ordered By: Rudy Belcher Admission Data Admit Date/Time: 10/28/24 17:16 Attending Provider: Rudy Belcher Admit Provider: Vernell Nolan Primary Care Provider: Isela Hester Other Providers: Vernell Nolan
[2024-10-30 14:50] VITALS: PULSE 69
== END 2024-10-30 16:14 | disposition home or self-care (01) ==
LOC: EDINP 11:37 → ED 11:37 → SUATTDRO 17:16 → 2N 18:44